=== PATIENT | female | born 1955 | race Caucasian/White ===

== ENCOUNTER 2017-07-16 05:03 | Day surgery (SDC) | payer OTHER ==
[2017-06-28 08:26] VITALS: Ht 161.3 cm; Wt 76.8 kg
--- NOTE | 2017-06-28 08:56 | PAT Medication Instructions ---
Service Date Jun 28, 2017. Current Home Medication List Aspirin (Aspirin Ec), 81 MG PO QAM Cholecalciferol (Vitamin D3), 5,000 UNITS PO QAM Saajmquaate-Zvfanisvtpf-Krw C- (Glucosamine Chondroitin), 1 TAB PO QAM Magnesium Oxide (Mag-Ox), 400 MG PO QAM Vitamin E (Alph-E), 400 UNITS PO QAM [Calcium], 600 MG PO TID [Kelp], 600 MG PO QAM [L Lysine], 500 MG PO QAM [[place] 3], 10 ML PO QAM [Potassium], 75 MG PO QAM [Turmeric], 300 MG PO BID Medication Instructions For Your Scheduled Surgery Aspirin (Aspirin Ec), 81 MG PO QAM (check with surgeon/family doctor for instructions) - Hold the following medications 2 weeks prior to surgery: [Turmeric], 300 MG PO BID [[place] 3], 10 ML PO QAM [Kelp], 600 MG PO QAM Vitamin E (Alph-E), 400 UNITS PO QAM Gkrmwkuwahf-Nkhpgkcqryh-Foh C- (Glucosamine Chondroitin), 1 TAB PO QAM - Hold the following medications the morning of surgery: [Potassium], 75 MG PO QAM [L Lysine], 500 MG PO QAM [Calcium], 600 MG PO TID Magnesium Oxide (Mag-Ox), 400 MG PO QAM Cholecalciferol (Vitamin D3), 5,000 UNITS PO QAM - Take the following medications as scheduled the night before surgery: [Calcium], 600 MG PO TID If you have any questions please call us at [phone] or [phone] or [phone]
--- NOTE | 2017-06-28 09:37 | DIAGNOSTIC IMAGING REPORT ---
CHEST PREADMISSION(PA/LAT) HISTORY: 62 years-old Female preadmission exam COMPARISON: None available TECHNIQUE: Frontal and lateral views of the chest FINDINGS: Cardiac silhouette is within normal limits. There is atherosclerosis of the aorta. Single lead right pectoral pacer is noted with lead overlying the right ventricle. The lead appears to be intact. No pneumothorax, pleural effusion, focal airspace consolidation or overt pulmonary edema. Cholecystectomy clips are seen. Multilevel endplate spurring is seen throughout the spine. There is mild convex right curvature of the midthoracic spine. IMPRESSION: No acute cardiopulmonary process. The above report was generated using voice recognition software. It may contain grammatical, syntax or spelling errors. Electronically signed by: Celestino Mendoza M.D. 06/28/2017 9:36 AM Dictated Date/Time: 06/28/2017 9:34 AM
[2017-06-28 10:35] LABS: BASO % 0.8 %; BASO ABS # 0.04 K/uL (0-0.2); COMPLETE YES; EOS % 4.4 %; HEMATOCRIT 40.5 % (37-47); IG% 0.2 %; LYMPH % 25.8 %; LYMPH ABS # 1.35 K/uL (1.2-3.4); MEAN CELL VOLUME 86.2 fL (80-100); MEAN CORPUSCULAR HEMOGLOBIN 27.7 pg (25-34); MEAN CORPUSCULAR HGB CONC 32.1 g/dl (32-36); MEAN PLATELET VOLUME 10.2 fL (7.4-10.4); MONO % 7.5 %; NEUT % 61.3 %; PLATELET COUNT 254 K/uL (130-400); WHITE BLOOD COUNT 5.23 K/uL (4.8-10.8)
[2017-06-28 10:43] LABS: BUN/CREATININE RATIO 21.4 (10-20); CALCIUM 8.7 mg/dl (8.5-10.1); CREATININE 0.55 mg/dl (0.60-1.20); POTASSIUM 4.2 mmol/L (3.5-5.1)
[2017-06-28 10:47] LABS: PROTHROMBIN TIME (PATIENT) 10.3 SECONDS (9.0-12.0); URINE APPEARANCE CLEAR (CLEAR); URINE COLOR YELLOW; ZZUR CULT IF INDIC CLEAN CATCH NO
[2017-06-28 10:48] LABS: URINE BILIRUBIN NEG (NEG); URINE NITRITE NEG (NEG); URINE PH 7.5 (4.5-7.5); URINE SPECIFIC GRAVITY 1.021 (1.000-1.030); UROBILINOGEN NEG (NEG)
[2017-06-28 10:58] LABS: MANUAL MICROSCOPIC REQUIRED? NO; REVIEW REQ? NO
--- NOTE | 2017-07-14 20:34 | History and Physical ---
History & Physical Date Jul 14, 2017. Chief Complaint Right knee pain History of Present Illness The patient is a 62 year old female with complaints of right knee pain. Patient had a twisting mechanism which caused her to hurt her knee. She states her pain is along the inside of her knee. She has noticed periods of locking or giving way. Past Medical/Surgical History PMHx: HTN PSHx: Defibrillator placement, partial thyroidectomy, cholecystectomy, tonsillectomy, right hand carpal tunnel release Additional History Hepatic Disease: No Endocrine Disorder: Yes Kidney Disease: No Hypertension: Yes Heart Disease: No Bleeding Tendencies: No Infectious Diseases: No Allergies Coded Allergies: Codeine (Verified Allergy, Unknown, CHEST PAIN, 06/28/17) Lactose Intolerance (GI) (Verified Allergy, Unknown, GI UPSET, 06/28/17) Sulfa Antibiotics (Verified Allergy, Unknown, UNKNOWN, 06/28/17) Home Medications Scheduled Aspirin (Aspirin Ec), 81 MG PO QAM Cholecalciferol (Vitamin D3), 5,000 UNITS PO QAM Ubtqzpvlods-Iabdovkcbga-Dnx C- (Glucosamine Chondroitin), 1 TAB PO QAM Magnesium Oxide (Mag-Ox), 400 MG PO QAM Vitamin E (Alph-E), 400 UNITS PO QAM [Calcium], 600 MG PO TID [Kelp], 600 MG PO QAM [L Lysine], 500 MG PO QAM [[place] 3], 10 ML PO QAM [Potassium], 75 MG PO QAM [Turmeric], 300 MG PO BID Physical Examination Skin: warm/dry Eyes: normal inspection Head: normocephalic Neck: no adenopathy Respiratory/Chest: lungs clear, normal breath sounds Cardiovascular: regular rate, rhythm, no murmur Abdomen / GI: normal bowel sounds, non tender Back: normal inspection Extremities: normal inspection, + pertinent finding ((+) Pete test of the right knee, medial joint line tenderness) Diagnosis Right knee medial meniscal tear, lateral meniscal tear Plan of Treatment Patient is scheduled for a right knee PMM, PLM. Patient had a twisting mechanism that caused her pain. MRI demonstrated a medial and lateral meniscal tear of the right knee. She would like to proceed with an arthroscopy. She will be scheduled for a right knee PMM, PLM. Risks and benefits to surgery were discussed that included but not limited to pain, DVT, infection, possible re- tear, failure to relieve all symptoms, blood vessel damage, nerve damage, and anesthesia risks were all discussed with the patient. She wishes to proceed.
[~2017-07-16] VITALS: Ht 161.3 cm; Wt 76.8 kg
[~2017-07-16 05:03] MED LIST: ASPI81TA28 PO; CALC-51 PO; CHOL1000 PO; GLUCTAB7 PO; KELP PO; L LYSINE PO; MAGN400T6 PO; OMEGA 3 PO; POTASSIUM PO; TURMERIC PO; VITA400C28 PO
[2017-07-16 05:53] VITALS: BP 154/84; PULSE 55; TEMP 36.8; O2SAT 98
[2017-07-16] MEDS ORDERED: CEFAZOLIN 1000MG/55 ML D5W IV SCH (06:00)
[2017-07-16] MEDS ORDERED: LACTATED RINGER'S 1000ML 1,000 ML IV SCH (06:00)
[2017-07-16] MEDS ORDERED: LIDOCAINE HCL 2% 2 ML VIAL (20MG/ML) ONE (06:27)
[2017-07-16] MEDS ORDERED: PROPOFOL IV EMULSION 10 MG/ML 20 ML VIAL IV ONE (06:27)
[2017-07-16] MEDS ORDERED: DEXAMETHASONE SOD INJ 4 MG/ML VIAL ONE (06:27)
[2017-07-16] MEDS ORDERED: FENTANYL CITRATE INJ 50 MCG/1 ML 2 ML VIAL ONE (06:27)
[2017-07-16] MEDS ORDERED: ONDANSETRON INJ 2 MG/ML 2 ML VIAL ONE (06:27)
[2017-07-16] MEDS ORDERED: MIDAZOLAM HCL 1 MG/ML 2ML VIAL ONE (06:27)
[2017-07-16] MEDS ORDERED: LIDOCAINE/EPINEPHRINE 1% 20 ML VIAL ONE (07:02)
[2017-07-16] MEDS ORDERED: BUPIVACAINE 0.5 % 5 MG/1 ML MPF 30ML VIAL ONE (07:02)
[2017-07-16] MEDS ORDERED: EpINEphrine HCL INJ 1 MG/ML 5ML SYRINGE ONE (07:03)
--- NOTE | 2017-07-16 07:10 | History & Physical Bridge Note ---
H&P Re-Evaluation Bridge Note: I have examined the patient, reviewed the History & Physical and in the interval since the performance of the History & Physical I have noted the following changes of clinical significance: No changes noted
[2017-07-16] MEDS ORDERED: FENTANYL CITRATE INJ 50 MCG/1 ML 2 ML VIAL IV PRN (07:15)
[2017-07-16] MEDS ORDERED: HYDROmorphone INJ 1 MG/ML SYR IV PRN (07:15)
[2017-07-16] MEDS ORDERED: ATROPINE SULFATE 0.1 MG/ML 5ML SYR IV PRN (07:15)
[2017-07-16] MEDS ORDERED: ONDANSETRON INJ 2 MG/ML 2 ML VIAL IV PRN ×2 (07:15→08:00)
[2017-07-16] MEDS ORDERED: EpHEDrine SULFATE INJ 50 MG/ML AMP IV PRN (07:15)
[2017-07-16] MEDS ORDERED: GLYCOPYRROLATE INJ 0.2 MG/ML VIAL ONE (07:40)
[2017-07-16] MEDS ORDERED: HYDR-5688 PO (07:49)
--- NOTE | 2017-07-16 07:52 | Discharge Instructions ---
Discharge Instructions Date of Service Jul 16, 2017. Admission Reason for Admission: Right Knee, Lateral Meniscus Tear,Medial Meniscus Discharge Discharge Diagnosis / Problem: S/P Partial lateral meniscal tear Discharge Goals Goal(s): Decrease discomfort, Improve function Activity Recommendations Activity Limitations: per Instructions/Follow-up section . Instructions / Follow-Up Instructions / Follow-Up ACTIVITY RECOMMENDATIONS: * You may walk on the leg with or without crutches as comfort permits. * Bending of the knee should start at once. * Do not shower for 48 hours following surgery. SPECIAL CARE INSTRUCTIONS: * You may cleanse the skin adjacent to the small wounds with soap and water at the time of the first dressing change. * The application of an ice bag to the front and sides of the knee will decrease swelling and discomfort for the first 48 hours. * The small incisions may be sore and develop bruising. This bruising does not require any special care. SPECIAL PRECAUTIONS: * If you experience unusual pain unrelieved by prescriptions, temperature elevation (100 degrees F. or above) or progressive swelling or bleeding, you should contact our office at for further evaluation. * You may have been prescribed pain medication. If you experience nausea and/or fine skin rash, discontinue this medication and contact our office at for an alternate medication. DRESSING: * Dressing should be comfortable and absorb any leakage of fluid and/or blood. * The dressing may become moist or bloodstained. * Dressing may be removed 48 hours after surgery and bandaids placed over the small surgical incisions. If can be removed sooner if it becomes very soiled or loose. * Bandaids may be used over next several days as needed and can be discontinued when there is not further drainage from the wounds. FOLLOW UP VISIT: If appointment is not already scheduled: Please call [facility] to make a follow-up appointment for 10 -14 days after your surgery with Dr. Kam or his PA at . Current Hospital Diet Patient's current hospital diet: Regular Diet Discharge Diet Recommended Diet: Regular Diet Pending Studies Studies pending at discharge: no Medical Emergencies . Who to Call and When: Medical Emergencies: If at any time you feel your situation is an emergency, please call [phone] immediately. . Non-Emergent Contact Non-Emergency issues call your: Surgeon Call Non-Emergent contact if: temperature is above 101, your pain is worsening , wound has increased drainage, wound has increased redness . "Provider Documentation" section prepared by Andrew Mayes. . VTE Core Measure Inpt VTE Proph given/why not?: Treatment not indicated [place] Drug Monitoring Program Search Results: patient reviewed within database, no issues identified
--- NOTE | 2017-07-16 07:59 | [facility] Operative Report ---
Operative Report Operative Date Jul 16, 2017. Pre-Operative Diagnosis Right knee possible medial and lateral meniscus tears Post-Operative Diagnosis Right lateral meniscus tear Procedure(s) Performed Right Knee Arthroscopy with Partial Lateral Menisectomy Surgeon Dr. Santi Kam [employer] Business Agent Surgeon(s) None Estimated Blood Loss 1 mL Findings As above Specimens No pathology specimens per surgeon Drains none Anesthesia Gen. Complication(s) None Disposition Recovery Room / PACU Indications 62-year-old female while same pain in the right knee. She is unable to obtain an MRI secondary to pacemaker placement. She exam and history consistent with meniscus tear. Failing conservative measures she wishes to proceed with arthroscopy. Description of Procedure We discussed various treatment measures. The patient wished to proceed with arthroscopic partial lateral meniscectomy. Risks, benefits and alternatives to surgery including, but not limited to, infection, DVT, pain, stiffness, need for revision surgery, failure to relieve all symptoms, damage to blood vessels, damage to nerves, risk of the anesthesia were discussed with the patient and they wished to proceed. The patient was identified. Laterality was confirmed and marked. The patient received a preoperative antibiotic. They were transferred to the operating room and placed in supine position and induced into general endotracheal anesthesia per the anesthesia staff. A well-padded tourniquet was placed on the thigh and the limb was prepped and draped in the usual standard manner with ChloraPrep. The limb was exsanguinated and the tourniquet was inflated. I made a standard anterolateral viewing portal made through a stab incision and bluntly entered the suprapatellar pouch. Then under spinal needle localization I established an anteromedial portal. There was grade 3 and 4 cartilage of the patella. There was grade 0 cartilage of the trochlea. There was grade 1 cartilage of the medial femoral condyle. There was grade 0 cartilage of the medial tibial plateau. The medial meniscus was normal. The ACL and PCL were probed and were normal. There was a complex tear of the posterior horn of the lateral meniscus. This was debrided back to a stable base utilizing combination of the shaver as well as meniscal biter. There was grade 0 cartilage of the lateral femoral condyle. There was grade 0 cartilage of the lateral tibial plateau. All of the instrumentation was removed from the knee. The portal sites were closed with nylon. A sterile dressing was applied and the tourniquet was released. All needle and sponge counts were correct at the end of the procedure. The patient was transferred to the PACU in stable condition without apparent complication. I attest to the content of the Intraoperative Record and any orders documented therein. Any exceptions are noted below.
[2017-07-16] MEDS ORDERED: HYDROCODONE/ACETAMOPHEN 5/325MG TAB PO PRN ×2 (08:00)
[2017-07-16] MEDS ORDERED: ACETAMINOPHEN 325 MG TAB PO PRN (08:00)
[2017-07-16] MEDS ORDERED: METOCLOPRAMIDE HCL INJ 5 MG/ML 2 ML VIAL ONE (08:35)
[2017-07-16] MEDS ORDERED: NURSING VERBAL MED ORDER ONE (08:45)
--- NOTE | 2017-07-16 08:47 | Anesthesiology Progress Note ---
Anesthesia Post Op Note Date & Time Jul 16, 2017 at 08:47 Vital Signs Pain Intensity: 0 Vital Signs Past 12 Hours Date Time Temp Pulse Resp B/P (MAP) Pulse Ox O2 Delivery O2 Flow Rate FiO2 07/16/17 08:40 59 16 144/61 96 Room Air 07/16/17 08:30 65 16 155/71 98 Room Air 07/16/17 08:20 69 16 156/70 99 Mask 10 07/16/17 08:10 63 16 129/69 99 Mask 10 07/16/17 08:03 36.5 69 16 127/62 98 Mask 10 07/16/17 05:53 36.8 55 18 154/84 (107) 98 Room Air Notes Mental Status: alert / awake / arousable, participated in evaluation Pt Amnestic to Procedure: Yes Nausea / Vomiting: adequately controlled Pain: adequately controlled Airway Patency, RR, SpO2: stable & adequate BP & HR: stable & adequate Hydration State: stable & adequate Anesthetic Complications: no major complications apparent
[2017-07-16] MEDS ORDERED: METOCLOPRAMIDE HCL INJ 5 MG/ML 2 ML VIAL IV STA (08:48)
[2017-07-16 09:00] VITALS: BP 135/62; PULSE 55; TEMP 36.6; O2SAT 94
[2017-07-16 09:30] VITALS: BP 151/65; PULSE 57; TEMP 36.8; O2SAT 94
[2017-07-16 10:00] VITALS: BP 162/77; PULSE 65; TEMP 36.7; O2SAT 99
== END 2017-07-16 11:00 | disposition home or self-care (01) ==
LOC: C.ACU 05:03
PROVIDERS: ATTEND Orthopaedic Surgery
DX: S83.241A Other tear of medial meniscus, current injury, right knee, initial encounter (principal); X50.1XXA Overexertion from prolonged static or awkward postures, initial encounter; Z79.82 Long term (current) use of aspirin; E89.0 Postprocedural hypothyroidism; Z90.49 Acquired absence of other specified parts of digestive tract; Z90.89 Acquired absence of other organs; I10 Essential (primary) hypertension; Z95.0 Presence of cardiac pacemaker

== ENCOUNTER 2018-04-04 04:58 | Day surgery (SDC) | payer OTHER, BC ==
--- NOTE | 2018-04-02 14:02 | History and Physical ---
History & Physical Date April 02, 2018. Chief Complaint Left Shoulder pain History of Present Illness The patient is a 63 year old female with complaints of left shoulder pain. Patient has been having pain for about 5 years. Has difficult lifting things out in front of her and lifting arm over head. Cannot sleep on left side. CTA of shoulder showed full thickness RCT and patient would like to proceed with arthroscopic repair. Patient denies headaches, fever, chills, chest pain, sob, n /v/d/c, vision changes, dysphagia, cough, numbness or tingling, dysuria. ROS positive for joint pain and stiffness, does have some urinary incontinence of which she follows with urology. Past Medical/Surgical History Past medical history: HTN, vasovagal syncope, RA, pacemaker-non functioning Past surgical history: subtotal thyroidectomy, knee arthroscopy, CTR, cholecystectomy, tonsillectomy, pacemaker insertion Social history: Patient denies drug, alcohol, and tobacco use. Patient lives in a 1 story home and is retired. Medications: Patient's medications include Aspirin, amlodipine, metoprolol, vitamin c, l-lysine, calcium, vitamin e, kelp, glucosamine and chondroitin, tumeric, and potassium Additional History Hepatic Disease: No Endocrine Disorder: No Kidney Disease: No Hypertension: Yes Heart Disease: No Bleeding Tendencies: No Infectious Diseases: No Allergies Coded Allergies: Codeine (Verified Allergy, Unknown, CHEST PAIN, 07/16/17) Lactose Intolerance (GI) (Verified Allergy, Unknown, GI UPSET, 07/16/17) Sulfa Antibiotics (Verified Allergy, Unknown, UNKNOWN, 07/16/17) Home Medications Scheduled Aspirin (Aspirin Ec), 81 MG PO QAM Cholecalciferol (Vitamin D3), 5,000 UNITS PO QAM Zvxnmtaqssm-Nlvalxkfenv-Uni C- (Glucosamine Chondroitin), 1 TAB PO QAM Magnesium Oxide (Mag-Ox), 400 MG PO QAM Vitamin E (Alph-E), 400 UNITS PO QAM [Calcium], 600 MG PO TID [Kelp], 600 MG PO QAM [L Lysine], 500 MG PO QAM [[place] 3], 10 ML PO QAM [Potassium], 75 MG PO QAM [Turmeric], 300 MG PO BID Physical Examination Skin: warm/dry, no rash Eyes: normal inspection, EOMI, sclerae normal ENT: normal ENT inspection, pharynx normal Head: normocephalic, atraumatic Neck: supple, no adenopathy, trachea midline Respiratory/Chest: lungs clear Cardiovascular: regular rate, rhythm, no murmur Extremities: + pertinent finding (Left shoulder-ROM flexion to 90 degrees, abduction to 90 degrees, IR to T7. Tenderness anterolateral shoulder. Strength 3 +/5 supraspinatus. 5/5 ER. Positive neer and hawkin's impingement signs. 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 Diagnosis Left shoulder rotator cuff tear, impingement syndrome. Plan of Treatment Patient has full thickness rotator cuff tear. Treatment options were discussed with patient including operative and non operative treatments and patient wishes to proceed with left shoulder arthroscopy. Risks, benefits, and alternatives to surgery were discussed with the patient including but not limited to infection, DVT, pain, stiffness, need for revision surgery, failure to relieve symptoms, re-tear, damage to blood vessels, damage to nerves, risks of anesthesia and patient demonstrated understanding. She wishes to proceed with surgery. Patient is scheduled for left shoulder arthroscopic RCR and SAD. Surgery is scheduled for 04/04/18.
--- NOTE | 2018-04-03 09:00 | PAT Medication Instructions ---
Service Date April 03, 2018. Current Home Medication List Acetaminophen (Tylenol), 1,000 MG PO PRN Amlodipine (Norvasc), 2.5 MG PO QAM Ascorbic Acid (Vitamin C), 1,000 MG PO QAM Aspirin (Aspirin Ec), 81 MG PO QAM Mlsebpktdmj-Ocbndxchodp-Fnc C- (Glucosamine Chondroitin), 3 TAB PO DAILY Metoprolol Tartrate (Lopressor) (Lopressor), 12.5 MG PO BID Vitamin E (Alph-E), 400 UNITS PO QAM [Calcium], 1,800 MG PO QPM [Kelp], 600 MG PO QAM [L Lysine], 500 MG PO QAM [Magnesium], 1 TAB PO QPM [[place] 3], 5 ML PO QAM [Potassium], 99 MG PO QAM [Turmeric], 160 MG PO BID Medication Instructions For Your Scheduled Surgery - Held at surgeon's request: Aspirin (Aspirin Ec), 81 MG PO QAM - Hold the following medications the morning of surgery: [Potassium], 99 MG PO QAM Ascorbic Acid (Vitamin C), 1,000 MG PO QAM [[place] 3], 5 ML PO QAM Vitamin E (Alph-E), 400 UNITS PO QAM [Turmeric], 160 MG PO BID [Kelp], 600 MG PO QAM [L Lysine], 500 MG PO QAM Rixqdwpxljz-Ugoyemkfxvs-Dlo C- (Glucosamine Chondroitin), 3 TAB PO DAILY - Take the following medications the morning of surgery with a sip of water OTHERWISE NOTHING TO EAT OR DRINK AFTER MIDNIGHT: Acetaminophen (Tylenol), 1,000 MG PO PRN (may take if needed up to 4 hours prior to surgery) Metoprolol Tartrate (Lopressor) (Lopressor), 12.5 MG PO BID Amlodipine (Norvasc), 2.5 MG PO QAM - Take the following medications as scheduled the night before surgery: Acetaminophen (Tylenol), 1,000 MG PO PRN Metoprolol Tartrate (Lopressor) (Lopressor), 12.5 MG PO BID [Calcium], 1,800 MG PO QPM [Magnesium], 1 TAB PO QPM If you have any questions please call us at [phone] or [phone] or [phone]
[2018-04-03 10:17] LABS: BASO % 0.4 %; BASO ABS # 0.02 K/uL (0-0.2); EOS % 4.1 %; EOS ABS # 0.22 K/uL (0-0.5); HEMATOCRIT 38.9 % (37-47); HEMOGLOBIN 13.1 g/dL (12.0-16.0); IG# 0.01 K/uL (0.00-0.02); LYMPH % 21.9 %; LYMPH ABS # 1.18 K/uL (1.2-3.4); MEAN CELL VOLUME 83.3 fL (80-100); MEAN CORPUSCULAR HEMOGLOBIN 28.1 pg (25-34); MEAN CORPUSCULAR HGB CONC 33.7 g/dl (32-36); MEAN PLATELET VOLUME 9.3 fL (7.4-10.4); MONO % 7.8 %; MONO ABS # 0.42 K/uL (0.11-0.59); NEUT % 65.6 %; NEUT ABS # 3.53 K/uL (1.4-6.5); PLATELET COUNT 252 K/uL (130-400); RED CELL DISTRIBUTION WIDTH CV 14.5 % (11.5-14.5); RED CELL DISTRIBUTION WIDTH SD 44.2 fL (36.4-46.3); WHITE BLOOD COUNT 5.38 K/uL (4.8-10.8)
[2018-04-03 10:28] LABS: PTT PATIENT 25.5 SECONDS (21.0-31.0)
[~2018-04-04] VITALS: Ht 160 cm; Wt 78.5 kg
[~2018-04-04 04:58] MED LIST changes: +ACET-1256 PO; +AMLO2.5T PO; +ASCO10003 PO; -CHOL1000 PO; -MAGN400T6 PO; +MAGNESIUM PO; +METO25TA56 PO
[2018-04-04 05:23] VITALS: BP 157/70; PULSE 53; TEMP 36.6; O2SAT 95; Ht 160 cm; Wt 78.5 kg
[2018-04-04] MEDS ORDERED: CEFAZOLIN SOD 2000MG/15 ML IV PUSH ONE (05:59)
[2018-04-04] MEDS ORDERED: CEFAZOLIN 1000MG IV PUSH 7.5 ML IV SCH (06:00)
[2018-04-04] MEDS ORDERED: LACTATED RINGER'S 1000ML 1,000 ML IV SCH (06:00)
[2018-04-04] MEDS ORDERED: ROPIVACAINE 0.5% 5 MG/ML 30 ML VIAL ONE (06:37)
[2018-04-04] MEDS ORDERED: FENTANYL CITRATE INJ 50 MCG/1 ML 2 ML VIAL ONE (06:40)
[2018-04-04] MEDS ORDERED: MIDAZOLAM HCL 1 MG/ML 2ML VIAL ONE (06:40)
[2018-04-04] MEDS ORDERED: LIDOCAINE/EPINEPHRINE 1% 20 ML VIAL ONE (06:58)
[2018-04-04] MEDS ORDERED: EpINEphrine HCL INJ 1 MG/ML 1ML SYRINGE ONE (06:58)
[2018-04-04] MEDS ORDERED: BUPIVACAINE 0.5 % 5 MG/1 ML MPF 30ML VIAL ONE (06:58)
[2018-04-04] MEDS ORDERED: FENTANYL CITRATE INJ 50 MCG/1 ML 2 ML VIAL IV PRN (08:00)
[2018-04-04] MEDS ORDERED: ATROPINE SULFATE 0.1 MG/ML 5ML SYR IV PRN (08:00)
[2018-04-04] MEDS ORDERED: ONDANSETRON INJ 2 MG/ML 2 ML VIAL IV PRN (08:00)
[2018-04-04] MEDS ORDERED: DEXAMETHASONE SOD INJ 4 MG/ML VIAL ONE (08:33)
[2018-04-04] MEDS ORDERED: GLYCOPYRROLATE INJ 0.2 MG/ML VIAL ONE (08:33)
[2018-04-04] MEDS ORDERED: SUCCINYLCHOLINE CHLORIDE 20 MG/ML 10 ML VIAL IV ONE (08:33)
[2018-04-04] MEDS ORDERED: LIDOCAINE HCL 2% 2 ML VIAL (20MG/ML) ONE (08:33)
[2018-04-04] MEDS ORDERED: RANITIDINE HCL 25 MG/ML INJ ONE (08:33)
[2018-04-04] MEDS ORDERED: ONDANSETRON INJ 2 MG/ML 2 ML VIAL ONE (08:33)
[2018-04-04] MEDS ORDERED: METOCLOPRAMIDE HCL INJ 5 MG/ML 2 ML VIAL ONE (08:33)
[2018-04-04] MEDS ORDERED: ROCURONIUM BROMIDE 10 MG/ML 5 ML VIAL ONE (08:33)
[2018-04-04] MEDS ORDERED: PROPOFOL IV EMULSION 10 MG/ML 20 ML VIAL ONE (08:33)
[2018-04-04] MEDS ORDERED: NEOSTIGMINE METHYLSULFATE 5 MG/5 ML SYR ONE (08:33)
--- NOTE | 2018-04-04 08:57 | [facility] Operative Report ---
Operative Report Operative Date April 04, 2018. Pre-Operative Diagnosis Left shoulder rotator cuff tear, Impingement syndrome. Post-Operative Diagnosis Same as preoperative plus labral tear, synovitis Procedure(s) Performed Left Shoulder Arthroscopy Subacromial Decompression, Rotator Cuff Repair, Debridement, extensive debridement Surgeon Dr. Santi Kam Orientation And Mobility Specialist Surgeon(s) Néstor Valera PA-C Estimated Blood Loss 5ml Findings As above Specimens None per surgeon. Drains None Anesthesia Type General Regional Complication(s) none Disposition Recovery Room / PACU Indications The patient is a 63-year-old female developed a full-thickness rotator cuff tear of the left shoulder. We discussed various treatment measures and she wishes to proceed with arthroscopic repair. Description of Procedure The MRI demonstrated a full-thickness rotator cuff tear. We discussed various treatment measures. The patient wished to proceed with arthroscopic repair. Risks, benefits and alternatives to surgery including, but not limited to, infection DVT, pain, stiffness, need for revision surgery, failure to relieve all symptoms, damage to blood vessels, damage to nerves, risk of anesthesia were discussed with the patient and they wished to proceed. The patient was identified. Laterality was confirmed and marked. The patient received a preoperative antibiotic as well as an interscalene block. They were transferred to the operating room and placed in the supine position and induced into general endotracheal anesthesia per the anesthesia staff. The patient was then safely transferred to the lateral decubitus position, secured by a beanbag. An axillary roll was placed. All pressure points were well-padded. The limb was placed in 10 pounds of lateral traction and then prepped and draped in the usual standard manner with ChloraPrep. The portal sites were anesthetized with 2% lidocaine with epinephrine. I made a standard posterior viewing portal made through a stab incision and then bluntly entered the glenohumeral joint. Then under spinal needle localization, I establish an anterior superolateral portal. The patient had a full-thickness rotator cuff tear through the supraspinatus extending into the infraspinatus. This retracted back about 2 cm They had a degenerative tear in the anterior, superior and posterior aspects of the glenoid labrum. This was debrided back to a stable base utilizing a shaver. Synovitic change in the anterior aspect of the joint was debrided utilizing a shaver. The cartilage of the humeral head and glenoid had some minor degeneration anteriorly. The long head of the biceps was normal. The subscapularis was normal. I then removed the instrumentation from the joint and entered the subacromial space and established a lateral portal. There was a full-thickness rotator cuff tear that measured about 2.5 cm in diameter with fairly thin tissue laterally. I debrided the footprint with a shaver to establish a good bleeding response. Through a stab incision I placed a 5.5 mm HEALICOIL suture anchor. I passed the ultra braid sutures in a horizontal mattress with a fast passive scorpion. I then passed the ultra tape with a shuttling suture. I repeated this process for a posterior medial anchor. I tied the ULTRABRAID sutures with sliding Dov knots reinforced for 3 half hitches on alternating posts. I then took 1 ULTRABRAID suture from each anchor I placed them in a 5.5 mm Multifix S suture anchor. I placed one anterolaterally. I then repeated this process another suture anchor posterolaterally, completing my double row construct. I then released the CA ligament with cautery and performed a subacromial decompression, first removing the anterior inferior spur from laterally and then completing with a cutting block technique. All instrumentation was then removed from the shoulder. Portal sites were closed with nylon. A sterile dressing was applied and a sling placed. All needle and sponge counts were correct at the end of the procedure. The patient was transferred to the PACU in stable condition without apparent complication. The PA-C was necessary for assistance with procedure for assistance in positioning, prepping, draping, retraction and closure. I attest to the content of the Intraoperative Record and any orders documented therein. Any exceptions are noted below.
--- NOTE | 2018-04-04 09:19 | Discharge Instructions ---
Discharge Instructions Date of Service April 04, 2018. Visit Reason for Visit: Left Shoulder Impingement Syndrome, Rtc Tear Discharge Discharge Diagnosis / Problem: Left shoulder RTC tear, impignement syndrome Discharge Goals Goal(s): Decrease discomfort, Improve function Activity Recommendations Activity Limitations: per Instructions/Follow-up section Anesthesia . Post Anesthesia Instructions: If you have had General Anesthesia or IV Sedation: * Do not drive today. * Resume driving when surgeon permits. * Do not make important decisions or sign legal documents today. * Call surgeon for: 1. Temperature elevations greater than 101 degrees F. 2. Uncontrollable pain. 3. Excessive bleeding. 4. Persistent nausea and vomiting. 5. Medication intolerance (nausea, vomiting or rash). * For nausea and vomiting use only clear liquids such as: tea, soda, bouillon until nausea subsides, then gradually increase diet as tolerated. * If you have any concerns or questions, call your surgeon's office. If physician is unavailable and it is an emergency, call 911 or go to the nearest emergency room. . Instructions / Follow-Up Instructions / Follow-Up U DISCHARGE INSTRUCTIONS: ROTATOR CUFF REPAIR SELF CARE INSTRUCTIONS A. You are permitted to loosen your sling/immobilizer to move your elbow, wrist , and hand to prevent stiffness. You should use your well arm (good arm) to assist the operated extremity when trying to raise the arm away from the body, hygiene purposes. Do NOT actively try to use/engage your shoulder muscles in operative arm at this time. You should NOT do overhead activity, lifting, or attempt to reach behind your back. B. You may/may not be instructed to start Physical Therapy upon discharge depending upon the size and difficulty of the repair. You will be provided a prescription for therapy with specific restrictions, if needed, at time of discharge. C. At 48 hours post-operatively, you may change your dressing. (Leave white steri-strips intact if present). Use band-aids and change daily. You are allowed to shower at this time and get the incision area wet, but DO NOT soak or submerge incision area in water. (No baths, swimming pools, hot tubs) D. Do NOT apply soap or any ointment/lotions directly over incision. E. You may use ice as needed to operative shoulder SPECIAL CARE INSTRUCTIONS: VERY IMPORTANT TO READ AND REVIEW A. There are a few signs you need to watch for after you are home. Call [facility] at [phone] if you experience any of the following: a. Increased severe shoulder pain. Some pain is expected especially when you exercise b. Increased swelling in your shoulder or arm; pain or swelling in either upper extremity. (Note: swelling and stiffness is normal and expected for several weeks post op, depending on type of shoulder surgery you had). c. Any fluid or drainage from the incision; redness of the incision. d. Shortness of breath or chest pain. B. Please call [facility] at [phone] if you have any questions or concerns about your operation or recovery. C. Call your physician if: a. Temperature is greater than 101 degrees (F). b. Pain is not relieved by prescribed pain medications. c. Increase drainage or redness from incision. d. Unanswered questions or concerns. D. Pain Medication: a. You will be prescribed pain medication upon discharge that should last till your first post-operative appointment. b. If you experience nausea and/or skin rash, discontinue this medication and contact our office for an alternative medication. c. Caution- narcotic pain medication can cause constipation. FOLLOW UP VISIT: Please call [facility] at [phone] to schedule a follow up appointment with Dr. Kam 10-14 days from your surgery date. Diet Recommendations Recommended Home Diet: resume previous diet Procedures Procedures Performed: Left Shoulder Arthroscopy Subacromial Decompression, Rotator Cuff Repair, Debridement, extensive debridement Pending Studies Studies pending at discharge: no Medical Emergencies . Who to Call and When: Medical Emergencies: If at any time you feel your situation is an emergency, please call 911 immediately. . Non-Emergent Contact Non-Emergency issues call your: Surgeon Call Non-Emergent contact if: temperature is above 101, your pain is not controlled, your pain is worsening, wound has increased drainage, wound has increased redness, wound has increased pain . . "Provider Documentation" section prepared by Néstor Valera. . [place] Drug Monitoring Program Search Results: patient reviewed within database, no issues identified
[2018-04-04] MEDS ORDERED: OXYC-57 PO (09:24)
--- NOTE | 2018-04-04 09:53 | Anesthesiology Progress Note ---
Anesthesia Post Op Note Date & Time April 04, 2018 at 09:53 Vital Signs Pain Intensity: 0 Vital Signs Past 12 Hours Date Time Temp Pulse Resp B/P (MAP) Pulse Ox O2 Delivery O2 Flow Rate FiO2 04/04/18 09:46 36.2 42 14 110/56 93 Room Air 04/04/18 09:41 36.2 42 14 108/73 95 Room Air 04/04/18 09:31 44 14 125/47 100 Oxymask 10 04/04/18 09:21 45 14 137/57 100 Oxymask 10 04/04/18 09:12 36.0 48 14 127/62 100 Oxymask 10 04/04/18 05:23 36.6 53 18 157/70 (99) 95 Room Air Notes Mental Status: alert / awake / arousable, participated in evaluation Pt Amnestic to Procedure: Yes Nausea / Vomiting: adequately controlled Pain: adequately controlled Airway Patency, RR, SpO2: stable & adequate BP & HR: stable & adequate Hydration State: stable & adequate Anesthetic Complications: no major complications apparent
[2018-04-04 09:55] VITALS: BP 112/52; PULSE 56; TEMP 35.9; O2SAT 97
[2018-04-04 10:25] VITALS: BP 112/55; PULSE 42; TEMP 35.9; O2SAT 95
[2018-04-04 10:55] VITALS: BP 153/72; PULSE 65; O2SAT 97
== END 2018-04-04 11:10 | disposition home or self-care (01) ==
LOC: C.ACU 04:58
PROVIDERS: ATTEND Orthopaedic Surgery
DX: M75.122 Complete rotator cuff tear or rupture of left shoulder, not specified as traumatic (principal); M75.42 Impingement syndrome of left shoulder; I10 Essential (primary) hypertension; M19.90 Unspecified osteoarthritis, unspecified site; Z95.0 Presence of cardiac pacemaker; Z79.82 Long term (current) use of aspirin; Z79.899 Other long term (current) drug therapy; Z88.5 Allergy status to narcotic agent; Z88.2 Allergy status to sulfonamides; Z91.011 Allergy to milk products

== ENCOUNTER 2023-11-01 06:43 | Observation (INO) ==
--- NOTE | 2023-11-01 07:52 | History & Physical Bridge Note ---
Date of Service November 01, 2023 History & Physical Bridge Note I have examined the patient, reviewed the History & Physical and in the interval since the performance of the History & Physical I have noted the following changes of clinical significance: no changes noted. I reviewed the indications, procedure, risks and alternatives with the patient, and answered all questions. Patient understands and agrees to the procedure. Consent obtained. I also reviewed the risks and use of sedation, patient understands and consent obtained. Our plan is to remove the right-sided pacemaker which looks a little indurated around the site, if that looks clean on explant we will proceed with left-sided dual-chamber pacemaker implantation. If not we will hold off on reimplantation. This is safe since the device has not been functional for decades.
--- NOTE | 2023-11-01 07:53 | Pre Anesthesia Assessment ---
Date of Service November 01, 2023 Pre Sedation Assessment Vital Signs Temp Pulse Resp BP Pulse Ox O2 Del Method 11/01/23 07:01 36.8 C 59 L 18 204/107 H 100 Room Air Cardiovascular RRR, no murmur, no edema Respiratory normal respiratory effort, lungs clear to auscultation Pre-Sedation Airway Assessment Smoking Status: Never smoker Hx Sleep Apnea: No Short, Thick Neck: No Thyromental Distance: > or= 3.5 Finger Breadths Oral Cavity: + Dentures Mallampati Class: III ASA: ASA3 NPO Status Date of Last Intake of Fluids: 10/31/23 Date of Last Intake of Solid Food: 10/31/23 Procedure Planning Contraindications for Sedation: none Current Medications Reviewed: Yes Notes The planned sedation has been discussed with the patient. Informed Consent was obtained. I have identified the patient, determined the appropriateness of sedation and have assessed the patient immediately prior to the procedure. All medicine(s) and interventions are by my order.
[2023-11-01] MEDS: LIDOCAINE 1% LOCAL 20 ML VIAL ONE ×3 (08:28→09:28)
[2023-11-01] MEDS: VANCOMYCIN HCL 1000MG/20ML VIAL ONE ×2 (09:27→10:10)
[2023-11-01] MEDS: MIDAZOLAM HCL 5 MG/ML 1 ML VIAL ONE ×2 (09:28→10:11)
[2023-11-01] MEDS: WATER, STERILE FOR INJ 10 ML VIAL ONE ×3 (09:28→10:10)
[2023-11-01] MEDS: fentaNYL citrate PF 100 MCG/2 ML VIAL ONE ×2 (09:28→10:11)
[2023-11-01] MEDS: ceFAZolin 330 MG/ML 1 GM VIAL ONE (09:28)
[2023-11-01] MEDS ORDERED: ACETAMINOPHEN W/CODEINE #3 1 TAB PO PRN (10:52)
--- NOTE | 2023-11-01 10:52 | Electrophysiology Report ---
Date of Service November 01, 2023 Electrophysiology Procedure Electrophysiology Procedure Report Preoperative diagnosis: Pacemaker end-of-life Sinus node dysfunction Postoperative diagnosis: Same Procedure: Right-sided single-chamber pacemaker removal Left subclavian venogram Dual-chamber pacemaker implantation Surgeon: Santy Quintero MD Estimated blood loss: 50 cc Specimens: None Anesthesia: Local with sedation Procedure details: After obtaining informed consent for the procedure, the patient was brought to the laboratory and prepped and draped in the standard sterile manner for a right-sided pacemaker removal. The site was somewhat indurated for unknown reasons, the device had been in since 1990 and had long since become depleted. It had been left in place. The right prepectoral region was anesthetized with 1% lidocaine local anesthetic through the old implant scar. A 5 cm incision was made through the old scar and carried down to the pacemaker generator. The generator was found to be very heavily calcified with a very thickened calcified capsule which made it difficult to extract the pacemaker. Ultimately the capsule was cracked and partially removed and the device could be explanted. It was disconnected from the lead, a lead cap was placed on the lead. The inflammation appeared likely due to the calcified capsule, there appeared to be no evidence of infection, therefore is much of the capsule as could easily be removed was done although some remains. The lead was coiled in the pocket, the pocket was flushed with vancomycin solution and the incision was closed with a running double subcutaneous closure of 3-0 Vicryl followed by a running subcuticular skin closure of 4-0 Vicryl. Bacitracin ointment was placed on incision and a dressing applied. The sterile drape bruits were removed. The patient was then reprepped and draped in the standard sterile manner for a left-sided pacemaker implantation. Dye was injected the left arm IV site to opacify the left subclavian vein. The subclavian vein was identified and found to be free of obstruction. The left prepectoral region was anesthetized with 1% lidocaine local anesthetic and left axillary venipuncture was performed by percutaneous technique and a guidewire placed through the left subclavian vein into the superior vena cava. The area was further infiltrated with 1% lidocaine local anesthetic and a 6 cm incision was made parallel to the left clavicle and 2 cm below it and carried down to the anterior pectoralis fascia. A pacemaker pocket was formed by blunt dissection anterior to the pectoralis fascia and a vancomycin soaked sponge was placed in the pocket. An 8 [place] [employer] Medtronic lead introducer was placed over the guidewire into the left subclavian vein, the dilator and guidewire were removed and a bipolar active fixation steroid tipped ventricular lead was advanced through the introducer into the superior vena cava. A guidewire was placed through the introducer and the introducer was stripped from the lead and guidewire. Another 8 [place] [employer] Medtronic lead introducer was placed over the guidewire into the left subclavian vein, the dilator and guidewire were removed and a bipolar active fixation steroid tipped atrial lead was advanced through the introducer into the superior vena cava. A guidewire was placed back through the introducer and the introducer was stripped from the lead and guidewire. Using a curved stylette the ventricular lead was advanced through the right ventricular outflow tract into the pulmonary artery and then using a straight stylette was positioned on the intraventricular septum. The screw was extended fixing the lead in position. Pacing and sensing thresholds were evaluated in bipolar configuration and are recorded on the implant data sheet. Using a curved stylette the atrial lead was positioned in the region of the atrial appendage and the screw extended fixing the lead in position. Pacing and sensing thresholds were evaluated in bipolar configuration and are recorded on the implant data sheet. Once the leads were in position they were attached to the anterior pectoralis fascia using 2 sutures of 2-0 silk around each lead collar. The vancomycin soaked sponge was removed from the pocket, hemostasis was obtained, the pacemaker was attached to the leads and placed in the pocket with the leads coiled beneath it. The incision was closed with a running double subcutaneous closure of 3-0 Vicryl absorbable suture, followed by running subcuticular skin closure of 4-0 Vicryl absorbable suture. Bacitracin ointment was placed on the incision and a dressing applied. [facility] Electrophysiology codes Indication for Procedure (1) Sinus bradycardia: Pacing Procedure 1: Pacin Removal Pacer genererator Procedure 2: Pacin Insert/Replace Pacer A & V Miscellaneous Procedures Procedure 1: EP Miscellaneous: 09766 Contrast injection for venography Procedure 2: EP Miscellaneous: 78893-80 Vengraphy, extremity PG Moderate Sedation Codes Moderate Sedation Codes Procedure 1: Sedation/Anesthesia: 70995 Mod Sedation by the same physician;Init15 Min Child Age 5 & Up Procedure 2: Sedation/Anesthesia: 82117 Mod Sedation by the same physician; Ea [id number] Minutes
[2023-11-01] MEDS: ACETAMINOPHEN 325 MG TAB PO PRN (12:43)
[2023-11-01] MEDS ORDERED: KETOROLAC TROMETHAMINE 10 MG TABLET PO PRN (13:56)
[2023-11-01] MEDS: amLODIPine BESYLATE 5 MG TAB PO SCH (15:25)
[2023-11-01] MEDS: ACETAMINOPHEN 325 MG TAB ONE (15:25)
[2023-11-01] MEDS ORDERED: TRIAMCINOLONE ACET 0.1% OINT 15 GM TUBE TOP PRN (15:48)
[2023-11-01] MEDS ORDERED: TRIAMCINOLONE ACET 0.5% CR 15 GM TUBE TOP PRN (15:49)
[2023-11-01] MEDS: METOPROLOL TARTRATE 50 MG TAB PO STA (16:27)
--- NOTE | 2023-11-01 16:41 | Post Anesthesia Assessment ---
Date of Service November 01, 2023 Post Sedation Assessment Vital Signs Temp Pulse Pulse Resp BP Pulse Ox O2 Del Method 11/01/23 15:38 73 11/01/23 14:58 36.6 C 71 20 169/81 H 11/01/23 14:05 66 18 163/61 H 99 Room Air 11/01/23 13:35 67 18 144/71 H 99 Room Air 11/01/23 13:05 63 18 164/73 H 99 Room Air 11/01/23 12:35 64 18 140/66 96 Room Air 11/01/23 12:05 69 18 143/111 H 96 Room Air 11/01/23 11:50 74 18 133/76 95 Room Air 11/01/23 11:35 63 18 164/73 H 96 Room Air 11/01/23 11:20 61 18 142/111 H 97 Room Air 11/01/23 11:05 62 20 184/83 H 96 Room Air 11/01/23 10:50 62 20 157/75 H 97 Room Air 11/01/23 10:35 62 20 132/68 97 Room Air 11/01/23 07:01 36.8 C 59 L 18 204/107 H 100 Room Air Recovery Score Activity: Moves 4 extremities Respiration: Deep Breath/Cough Circulation: +/-20% PreAnes Value Consciousness: Fully Awake Oxygen Saturation: > 92% On Room Air Post Anesthesia Score: 10 Discharge Sedation Level of Care: Fast Track Phase II Post Sedation Plan On clinical assessment, the patient appears to have tolerated the sedation without complications. Patient is recovering as anticipated. Patient will continue to be monitored by nursing and may be discharged when sedation discharge criteria are met per below protocol. Upon Completions of procedure up to 15 minutes continue every 5 minute vital signs and the P.A.R. score; then discharge to a Phase I or Fast Track to Phase II per the following guidelines: * Discharge Patient to appropriate Phase II area if PAR is 8 or greater or return to pre- procedure baseline. The post - procedure orders will be as directed. * If PAR score is less than 8 or not return to pre-procedure baseline then patient will follow Phase I monitoring till PAR is reached for Phase II. The Phase I may be done in procedure room or may call to secure a Phase I area. * If naloxone or flumazenil are used for reversal, hold in Phase I for continued monitoring from when last reversal dose was given for a minimum of 60 minutes or longer pending the nurse and/or physician discretion of patient condition before discharge to Phase II. Please call the Sedation Physician to re-evaluate and complete post-note for discharge to Phase II area. Do NOT discharge from procedure sedation or Phase 1 until post- sedation evaluation note is complete by procedure /sedation MD Sedation Discharge Instructions to be given to the patient at discharge to home.
[2023-11-01] MEDS: prednisoLONE acetate 1% OP SUSP 5 ML BTL OP SCH (20:06)
[2023-11-01] MEDS: valACYclovir HCL 500 MG TABLET PO SCH (20:07)
--- NOTE | 2023-11-02 07:44 | Electrocardiogram Report ---
Test Reason : Blood Pressure : / mmHG Vent. Rate : 063 BPM Atrial Rate : 063 BPM P-R Int : 198 ms QRS Dur : 076 ms QT Int : 414 ms P-R-T Axes : 072 021 078 degrees QTc Int : 423 ms Atrial-paced rhythm Cannot rule out Anterior infarct , age undetermined Abnormal ECG When compared with ECG of 16-OCT-2023 10:20, (unconfirmed) Electronic atrial pacemaker has replaced Sinus rhythm Confirmed by Santy Quintero ([id number]) on 11/02/2023 7:44:09 AM Referred By: Santy Quintero Confirmed By:Santy Quintero
--- NOTE | 2023-11-02 07:52 | XRay Report ---
TWO VIEW CHEST CLINICAL HISTORY: Pacemaker implantation.. FINDINGS: PA and lateral chest radiographs are compared to study dated 06/28/2017. A 2-lead cardiac pa cemaker has been placed and partially obscures left lung base. Leads project over the right atrial ap pendage and the right ventricle. There are residual right-sided leads. The cardiomediastinal silhouet te is top normal for projection noting atherosclerotic calcification of the thoracic aorta. The pulmo nary vasculature is noncongested. Chronic interstitial thickening similar to previous. No airspace co nsolidation or pleural effusion is identified. Mild dependent atelectasis is noted at the lung bases. There is no pneumothorax. The skeletal structures are osteopenic. The bony thorax appears intact. D egenerative change is noted in the spine. Cholecystectomy clips are seen in the right upper quadrant. IMPRESSION: 1. A 2-lead cardiac pacemaker has been implanted as above. No pneumothorax is identified post procedu re. 2. There is no radiographic evidence of congestive failure. 3. No airspace consolidation or pleural effusion is identified. ACT 112: Negative or not required by law. Electronically signed by: Fuad Deleon M.D. 11/02/2023 7:50 AM
--- NOTE | 2023-11-02 08:29 | Cardiology Progress Note ---
Date of Service November 02, 2023 Assessment & Plan (1) Status post placement of cardiac pacemaker: Plan Postop day #1: Leads are in good position, there is no pneumothorax and the pacer is functioning well. The incision looks good and the dressings were changed. She is stable for discharge. Admission and Anticipated Discharge Date Admission Date: November 01, 2023 Subjective She is feeling well with only minor incisional discomfort. No chest pain, shortness of breath or palpitations. Physical Exam Physical Exam: Both right and left incisions are clean and dry, there is some ecchymosis on both but that is expected. Lungs are clear Cardiac rhythm is regular with no rub Results & Data Vital Signs (Past 12 Hours) Vital Signs Temp Pulse Pulse Resp BP Pulse Ox O2 Del Method 11/02/23 07:59 36.9 C 78 18 123/77 95 Room Air 11/02/23 03:16 36.9 C 81 20 134/78 98 Room Air 11/02/23 02:00 61 11/01/23 23:09 36.7 C 68 20 107/70 94 Room Air Laboratory Results Intake and Output 11/01/23 11/02/23 11/02/23 22:59 06:59 14:59 Intake Total 200 / 200 Output Total / Balance 199 / 199 Intake: Oral 200 / 200 Output: # Bowel Movements / Other: # Unmeasured Voids 1 Weight 77.6 kg Diagnostic Findings 1. Postop ECG: Atrial pacing with intact AV conduction 2. Telemetry: Predominantly atrial pacing with intact AV conduction, ap propriate pacemaker function 3. Chest x-ray: Good lead placement, no pneumothorax 4. Pacemaker evaluation: None remotely, excellent pacing and sensing characteristics PG Care Time/CCT Total # of Minutes Spent Total Time Spent with Patient: Total time spent is greater than 50% in coordination of care (as documented) at patient's floor/unit and/or counseling patient: Coding Level of Care Code 63541 Post Operative Follow-Up Diagnoses Status post placement of cardiac pacemaker Z95.0 CPT Codes Dual Lead Pacemaker System - 17345 ([id number])
[2023-11-02] MEDS: OMEGA-3 (PURIFIED FISH OIL) 1 GM CAP PO SCH (08:46)
[2023-11-02] MEDS: CALCIUM 600MG + VIT D 400 IU TAB PO SCH (08:46)
[2023-11-02] MEDS: MAGNESIUM OXIDE 400 MG TAB PO SCH (08:46)
[2023-11-02] MEDS: ASPIRIN 81 MG ECTAB PO SCH (08:46)
[2023-11-02] MEDS ORDERED: IODINE PO SCH (09:00)
[2023-11-02] MEDS ORDERED: [UNRECOGNIZED DRUG - OTHER] PO SCH (09:00)
--- NOTE | 2023-11-12 10:05 | Discharge Summary ---
Date of Service November 02, 2023 Admission HPI Per Admitting Provider This is a 68-year-old woman who has a long history of syncope. I do not have records but she is a quite good historian. Apparently around 1989 she was identified as having bradycardia felt to be a cause of her syncope and had a pacemaker implanted in [place]. I do not have records of this implant but she recalls it being a Medtronic, it is on the right and historic chest x-ray reports (I do not have one that I can look at) note that it is a single-chamber right-sided device, I assume a ventricular lead. It evidently did not help her symptoms of presyncope and syncope and she was evaluated by Dr. Bernabe at [facility] many years ago while the device was still functional (I do not have those records either) we determined that she had vasovagal syncope (possibly on the basis of a tilt test although I am not sure) and the pacer was programmed to a low rate. Since then the pacemaker has become completely battery depleted and has not been functional or evaluated for many years. She recalls it being a Medtronic device, however I checked with [employer] and I do not have record of her having a device. At this point it is probably irrelevant. She has continued to have episodes of syncope. She has several per year, some sound fairly prolonged and repetitive. She probably has episodes of syncope several times per year and although she has fallen she has not had serious injury although she is concerned that she could. Most recently she had her COVID booster on August 23, 2023 and later that day had an episode of syncope (while sitting down). She had a prodrome of feeling poorly with presyncopal symptoms until she lost consciousness. She also has intermittent momentary weakness which is periodic and to my knowledge has not defined. To my knowledge she has not had her syncope further evaluated since her evaluation at [place]. An echocardiogram done September 10, 2023 shows normal left ventricular size and function with mild concentric left ventricular hypertrophy and ejection fraction of 60 to 65%. She has only minor aortic and mitral regurgitation and mild pulmonic regurgitation with mild to moderate tricuspid regurgitation but normal right heart pressures. She notes that her device is irritating at times with burning or itching at the site. She has noted no drainage. She does not have exertional chest discomfort and has noted no change in her exercise ability recently. She does not have orthopnea or PND. Admission Exam (Per Admitting) Constitutional Constitutional: Alert, cooperative and in no distress. HEENT: Unremarkable Neck: No jugular venous distention, carotid pulses are normal and equal bilaterally without bruits. Pulmonary: Clear to auscultation bilaterally. Cardiac: Regular slow rhythm with no murmur, gallop or rub. Abdomen: Soft, nontender with normal bowel sounds. Extremities: No edema. Distal pulses intact. Neurologic: No focal findings. Gait is steady. Skin: The device site on the right is indurated but without erythema, swelling and with minimal tenderness. No rash, ecchymoses or petechiae. Discharge Data Procedures Performed Operation Date: 11/01/23 08:00 Actual Procedures p Pacer Removal - Santy Quintero MD s Pacer with A/V Leads (Dual) - Santy Quintero MD s Angio Extremity Unilateral - Santy Quintero MD Hospital Course (1) Status post placement of cardiac pacemaker: Plan Surgery to explant the right-sided pacemaker and The lead as well as implantation of a left-sided pacemaker went well without evident complications. Postop day #1: Leads are in good position, there is no pneumothorax and the pacer is functioning well. The incision looks good and the dressings were changed. She is stable for discharge. Coding Level of Care Code None Diagnoses Status post placement of cardiac pacemaker Z95.0
== END 2023-11-02 11:55 | disposition home or self-care (01) ==
LOC: 2S 06:43 → EP 06:43
PROC: CLB.AEU (2023-11-01 08:00)

== ENCOUNTER 2025-01-20 10:56 | Observation (INO) ==
[2025-01-20 11:31] LABS: Basophils # (auto) 0.05 K/uL (0.00-0.20); Basophils % (auto) 0.7 %; Eosinophils # (auto) 0.38 K/uL (0.00-0.50); Eosinophils % (auto) 5.3 %; Hematocrit (blood only) 41.7 % (37.0-47.0); Hemoglobin 13.5 g/dl (12.0-16.0); Immature Granulocytes # (auto) 0.02 K/uL (0.01-0.20); Immature Granulocytes % (auto) 0.3 %; Lymphocytes # (auto) 1.35 K/uL (1.20-3.40); Lymphocytes % (auto) 18.8 %; Mean Corpuscular Hemoglobin 29.9 pg (25.0-34.0); Mean Corpuscular Hgb Conc 32.4 g/dL (32.0-36.0); Mean Corpuscular Volume 92.3 fL (80.0-100.0); Mean Platelet Volume 9.5 fL (9.4-12.4); Monocytes # (auto) 0.53 K/uL (0.11-0.59); Monocytes % (auto) 7.4 %; Neutrophils # (auto) 4.84 K/uL (1.40-6.50); Neutrophils % (auto) 67.5 %; Platelet Count 208 K/uL (130-400); RDW Coefficient of Variation 13.6 % (11.5-14.5); RDW Standard Deviation 46.3 fL (36.4-46.3); Red Blood Count 4.52 M/uL (4.20-5.40); White Blood Count 7.17 K/ul (4.8-10.8)
[2025-01-20 11:42] LABS: Albumin Globulin Ratio 1.4 (0.9-2); Albumin Level 4.6 gm/dl (3.4-5.0); BUN Creatinine Ratio 21.6 (10-20); Bilirubin,Total 0.8 mg/dl (0.2-1.0); Calcium 9.5 mg/dl (8.6-10.3); Creatinine Clr Calc Pharmacy 98.4 ml/min; Globulin 3.4 gm/dl (2.5-4.0); Potassium 3.9 mmol/L (3.5-5.1)
--- NOTE | 2025-01-20 11:47 | XRay Report ---
XR chest 1V portable CLINICAL HISTORY: Chest pain, nonspecific COMPARISON STUDY: 01/18/2025 FINDINGS: Stable pacemaker. Stable mild cardiomegaly without pulmonary vascular congestion. No effusi on, consolidation, or pneumothorax. IMPRESSION: No acute findings. ACT 112: Negative or not required by law. Electronically signed by: Deep Rodríguez M.D. 01/20/2025 11:46 AM
[2025-01-20 11:49] LABS: Troponin I High Sensitivity 14.4 pg/ml (0-14)
[2025-01-20 11:55] LABS: Partial Thromboplastin Time 26 Seconds (21-31); Prothrombin Time 10.5 Seconds (9.0-12.0)
--- NOTE | 2025-01-20 12:24 | Emergency Department Note ---
Impression & Plan Chest pain ED Provider Note NAME: ANDERS ANDERSON AGE: 70 SEX: F : 1955 ARRIVES VIA: Walk-In INFORMANT: Patient, ED PROVIDER(S): Palak Marley MD CHIEF COMPLAINT: Chest pain HPI: This is a 70-year-old female sent for chest pain. Patient notes that she woke up middle of the night, around 2 AM, with pressure in her chest, arms, face. This was left-sided pressure/arm. Otherwise she no shortness of breath and sepsis. She did not wake up her Cher resolved after a couple of hours. She only had 2 hours of sleep as result of this pain. She then came to the ER after symptoms had resolved. She reports no nausea or vomiting currently. No current symptoms at all. She does report recent pacemaker replacement 2 days ago. ROS: See above HPI for pertinent positives & negatives. A total of 10 systems reviewed and were otherwise negative. PAST MEDICAL HISTORY: See Below PAST SURGICAL HISTORY: See Below FAMILY HISTORY: See Below SOCIAL HISTORY: See Below HOME MEDICATIONS: See Below ALLERGIES: See Below VITALS: See Below PHYSICAL EXAMINATION: General: resting comfortably in no acute distress Head: Normocephalic and atraumatic Eyes: Normal inspection, extraocular muscles intact Ear, nose, throat: Normal external exam Neck: Normal range of motion Respiratory: lungs clear to auscultation bilaterally Cardiovascular: Regular rate/rhythm, no murmur GI: soft, nontender, no guarding or rebound Extremities: nontender, moves all extremities Neuro: The patient awake and alert, appropriately conversive, no focal deficits, symmetric faces Skin: Warm, dry, and intact MEDICAL DECISION MAKING: This is a 70-year-old female presenting for chest pain. Patient notes chest pressure throughout course of night was left-sided arm pain and facial pain. She also has shortness of breath with this. Currently resolved symptoms. -Consider ACS, PE, pacemaker malfunction, -ECG independently interpreted by me with normal sinus rhythm, rate of 76, normal axis, normal WA, normal QRS, normal QTc, no ST segment elevations consistent with STEMI criteria -Bloodwork is reviewed showing no significant leukocytosis, anemia, electrolyte or creatinine abnormality -Chest Xray independently interpreted by me showing no pneumothorax, focal opacity, or pleural effusions. -Discussed with Dr. Quintero as history of procedure 2 days ago. States likely not a complication based on story. -Due to patient's story, will admit for further ACS rule out/unstable angina Differential diagnosis: ACS, angina, PE, dissection, pneumonia Independent History obtained from: Diagnostics interpreted by me: ECG: See above Cardiac Monitoring: An order was placed for continuous cardiac monitoring. The monitor shows a rate of 67 with sinus rhythm. 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 Epistaxis Left serous otitis media Hearing loss of left ear due to cerumen impaction Inflamed seborrheic keratosis of left cheek Lumbar spinal stenosis Lumbar radiculopathy Dysuria Lumbar degenerative disc disease Diarrhea Bilateral hip bursitis Chronic pharyngitis Chronic pharyngeal candidiasis Sinus bradycardia Tricuspid regurgitation Bilateral carotid artery stenosis Carotid stenosis Junctional rhythm Asymptomatic microscopic hematuria Syncope Colon cancer screening Dyslipidemia Hypomagnesemia Dyslipidemia Venous insufficiency Intertrigo Psoriasis Chronic venous insufficiency Hypertension, isolated systolic (Acute) Asymptomatic age-related postmenopausal state Mixed incontinence Medicare annual wellness visit, subsequent Encounter for perioperative consultation Urge incontinence (Acute) Presence of cardiac pacemaker (Acute) Stress incontinence (female) (male) (Acute) Medical History Migraine Pain due to varicose veins of both lower extremities Bleeding from varicose vein Cataract Bladder and urethra injury without mention of open wound into cavity Retinal tear of left eye Rotator cuff disorder Surgical History Status post placement of cardiac pacemaker History of suburethral sling procedure H/O eye surgery History of dilation and curettage History of hysteroscopy Pacemaker Status post lateral meniscus repair Status post rotator cuff repair H/O thyroidectomy History of cholecystectomy History of carpal tunnel release History of tonsillectomy Family History Mother Alzheimer disease 2015 Hypertension Stroke Sister Asthma Colonic polyp Diverticulitis Kidney stone Dyslipidemia Osteoporosis Father Diverticulitis Kidney stone Dementia Aunt SIDS (sudden syndrome) Denies family history of Rheumatoid arthritis Sudden Ovarian cancer Prostate cancer Diabetes Deep vein thrombosis Coronary heart disease Cerebral aneurysm Bipolar disorder Clotting disorder Crohn's disease Depression Heart disease Kidney disease Myocardial infarction Osteoarthritis Breast cancer Schizophrenia Congenital kidney disease Gestational diabetes Lung cancer COPD (chronic obstructive pulmonary disease) Colorectal cancer Pulmonary embolism Lung disease Cancer Ulcerative colitis Cystic kidney disease Social History Smoking Status: Never smoker Second Hand Exposure: No; Do You Dip or Chew Tobacco: No; Hx Alcohol Use: No Hx Substance Use: No Preferred Language: Icelandic Communication Ability: Effective Visual Impairment: No Limitations Hearing Ability: Normal Scientist/Engineer Required: No Beliefs That Will Affect Care: None marital status: Current Living Situation: Spouse current occupational status: unemployed Feels Safe at Home: Yes Childhood Exposure to Second-Hand Smoke: No caffeine: Yes during the past year weight has: remained stable Dental Care, Regularly: No Physical Activity Frequency: 5-6 Times per Week Physical Activity Frequency Comment: BICYCLING, WALK Seatbelt Use: always Sunscreen Use: No Assistive Devices: Glasses Allergies Allergies Allergy/AdvReac Type Severity Reaction Status Date / Time codeine Allergy Unknown CHEST PAIN Verified 01/20/25 14:21 Sulfa (Sulfonamide Allergy Unknown UNKNOWN Verified 01/20/25 14:21 Antibiotics) lactose AdvReac Unknown GI UPSET Verified 01/20/25 14:21 Home Meds Home Medications Medication Instructions Recorded Confirmed omega 8-mnl-lyo-fish oil 60 mg-90 1 cap PO DAILY 09/02/23 01/20/25 mg-500 mg capsule valacyclovir 500 mg tablet 500 mg PO BID 09/02/23 01/20/25 loteprednol etabonate 0.5 % eye 1 drp OPR QAM 10/21/24 01/20/25 drops,suspension aspirin 81 mg tablet,delayed 81 mg PO DAILY 01/20/25 01/20/25 release latanoprost 0.005 % eye drops 1 drp OPR HS 01/20/25 01/20/25 trazodone 50 mg tablet 50 - 100 mg PO HS PRN insomnia 01/20/25 01/20/25 Previous Rx's Medication Instructions Recorded metoprolol tartrate 25 mg tablet 12.5 mg (1/2 x 25 mg) PO BID #90 12/26/23 tabs amlodipine 5 mg tablet 5 mg PO DAILY #90 tabs 07/31/24 Results & Data (ED) Vital Signs Vital Signs - 24 hr 01/20/25 10:58 01/20/25 11:20 01/20/25 11:22 Temperature 36.8 C Temperature Source Temporal Artery Scan Pulse Rate 73 67 Pulse Rate from SpO2 Sensor Respiratory Rate 16 Respiratory Effort / Characteristics Non-Labored Spontaneous Respiratory Depth Normal Blood Pressure 200/83 H 198/81 H Blood Pressure Mean 122 110 Pulse Oximetry 95 Oxygen Delivery Method Room Air Sepsis Recent Fever Within 48 Hours No Sepsis New/Unexplained Change in Mental Status No Sepsis Action Taken by Nursing No Action Required 01/20/25 11:30 01/20/25 11:32 01/20/25 11:39 Temperature Temperature Source Pulse Rate 69 Pulse Rate from SpO2 Sensor 68 Respiratory Rate 19 Respiratory Effort / Characteristics Respiratory Depth Blood Pressure 135/71 Blood Pressure Mean 109 Pulse Oximetry 96 92 Oxygen Delivery Method Room Air Sepsis Recent Fever Within 48 Hours Sepsis New/Unexplained Change in Mental Status Sepsis Action Taken by Nursing 01/20/25 11:57 01/20/25 12:00 01/20/25 12:06 Temperature Temperature Source Pulse Rate 66 72 Pulse Rate from SpO2 Sensor 66 72 Respiratory Rate 17 20 Respiratory Effort / Characteristics Respiratory Depth Blood Pressure 122/65 Blood Pressure Mean 76 Pulse Oximetry 94 94 Oxygen Delivery Method Sepsis Recent Fever Within 48 Hours Sepsis New/Unexplained Change in Mental Status Sepsis Action Taken by Nursing 01/20/25 13:09 01/20/25 13:30 01/20/25 13:30 Temperature Temperature Source Pulse Rate 63 64 Pulse Rate from SpO2 Sensor 63 65 Respiratory Rate 18 15 Respiratory Effort / Characteristics Respiratory Depth Blood Pressure 155/77 H Blood Pressure Mean 113 Pulse Oximetry 98 97 Oxygen Delivery Method Sepsis Recent Fever Within 48 Hours Sepsis New/Unexplained Change in Mental Status Sepsis Action Taken by Nursing Laboratory Data 01/20/25 11:11 01/20/25 11:11 Lab Results 01/20/25 Range/Units 11:11 WBC 7.17 (4.8-10.8) K/ul RBC 4.52 (4.20-5.40) M/uL Hgb 13.5 (12.0-16.0) g/dl Hct 41.7 (37.0-47.0) % MCV 92.3 (80.0-100.0) fL MCH 29.9 (25.0-34.0) pg MCHC 32.4 (32.0-36.0) g/dL RDW Std Deviation 46.3 (36.4-46.3) fL RDW Coeff of Ivonne 13.6 (11.5-14.5) % Plt Count 208 (130-400) K/uL MPV 9.5 (9.4-12.4) fL Immature Gran % (Auto) 0.3 % Neut % (Auto) 67.5 % Lymph % (Auto) 18.8 % [place] % (Auto) 7.4 % Eos % (Auto) 5.3 % Baso % (Auto) 0.7 % Neut # (Auto) 4.84 (1.40-6.50) K/uL Lymph # (Auto) 1.35 (1.20-3.40) K/uL [place] # (Auto) 0.53 (0.11-0.59) K/uL Eos # (Auto) 0.38 (0.00-0.50) K/uL Baso # (Auto) 0.05 (0.00-0.20) K/uL Immature Gran # (Auto) 0.02 (0.01-0.20) K/uL PT 10.5 (9.0-12.0) Seconds INR 1.0 (0.9-1.1) APTT 26 (21-31) Seconds PTT Ratio 1.0 Sodium 139 (136-145) mmol/L Potassium 3.9 (3.5-5.1) mmol/L Chloride 103 (98-107) mmol/L Carbon Dioxide 31 (21-32) mmol/L Anion Gap 5 (3-11) BUN 11 (6-23) mg/dl Creatinine 0.51 L (0.6-1.2) mg/dl Est Cr Clr Drug Dosing 98.4 ml/min eGFR 99.12 BUN/Creatinine Ratio 21.6 H (10-20) Glucose 108 H (70-99(Fasting)) mg/dl Calcium 9.5 (8.6-10.3) mg/dl Total Bilirubin 0.8 (0.2-1.0) mg/dl AST 19 (13-39) U/L ALT 20 (7-52) U/L Alkaline Phosphatase 69 (34-104) U/L Troponin I High Sens 14.4 H (0-14) pg/ml Total Protein 8.0 (6.0-8.3) gm/dl Albumin 4.6 (3.4-5.0) gm/dl Globulin 3.4 (2.5-4.0) gm/dl Albumin/Globulin Ratio 1.4 (0.9-2) Imaging Data Radiologist's Impression: Chest X-Ray 01/20/25 11:02 XR chest 1V portable CLINICAL HISTORY: Chest pain, nonspecific COMPARISON STUDY: 01/18/2025 FINDINGS: Stable pacemaker. Stable mild cardiomegaly without pulmonary vascular congestion. No effusion, consolidation, or pneumothorax. IMPRESSION: No acute findings. ACT 112: Negative or not required by law. Electronically signed by: Deep Rodríguez M.D. 01/20/2025 11:46 AM Discharge Plan Visit Data Chief Complaint: Chest Pain Stated Complaint: HEART ATTACK ED Provider: Palak Marley Discharge Problem: Chest pain Patient Disposition: Admitted As Inpatient Discharge Instructions Interventions: ED Discharge Assessment Last Done: 01/20/25 16:33 Discharge Problem: Chest pain Qualifiers: Chest pain type: unspecified Qualified Code(s): R07.9 - Chest pain, unspecified
--- NOTE | 2025-01-20 14:17 | History & Physical Report ---
Date of Service January 20, 2025 Assessment & Plan (1) Chest pain, rule out acute myocardial infarction: Plan 70-year-old female presents to the ER with 5 hours of constant chest pain. Patient is chest pain-free at time of admission. #Chest pain, rule out NC Concerning story for acute coronary syndrome but hours of constant chest pain with relatively normal initial troponin is reassuring. Plan to trend troponin overnight TTE Consult cardiology for ongoing recommendations #Hypertension Continue amlodipine, metoprolol VTE Prophylaxis - low risk Diet - heart healthy Disposition - observation on med/tele Admission and Anticipated Discharge Date Admission Date: January 20, 2025 History of Present Illness Chief Complaint: Chest pain Primary Care Provider: Fuad Reynolds MD Azra Anne is a 70 year old female who presents to the ER with chest pain. She felt fine yesterday and went to bed around 8 PM. She woke up at 10 PM with central substernal chest pain severity 10/10 with associated left arm, face and neck pain which lasted until 3 AM this morning. Associated frontal headache. No improvement with Tylenol or Mylanta. Worse lying flat with associated shortness of breath. Pain was constant, not intermittent. No acid taste or history of heartburn. She is a non-smoker. No prior diabetes, stroke or heart attack. She notes her hypertension is well-controlled on current medications. Allergies Allergy/AdvReac Type Severity Reaction Status Date / Time codeine Allergy Unknown CHEST PAIN Verified 01/20/25 14:21 Sulfa (Sulfonamide Allergy Unknown UNKNOWN Verified 01/20/25 14:21 Antibiotics) lactose AdvReac Unknown GI UPSET Verified 01/20/25 14:21 Home Medications Medication Instructions Recorded Confirmed Type omega 5-hmv-lsj-fish oil 60 mg-90 1 cap PO DAILY 09/02/23 01/20/25 History mg-500 mg capsule valacyclovir 500 mg tablet 500 mg PO BID 09/02/23 01/20/25 History metoprolol tartrate 25 mg tablet 12.5 mg (1/2 x 25 mg) PO BID #90 12/26/23 01/20/25 Rx tabs amlodipine 5 mg tablet 5 mg PO DAILY #90 tabs 07/31/24 01/20/25 Rx loteprednol etabonate 0.5 % eye 1 drp OPR QAM 10/21/24 01/20/25 History drops,suspension aspirin 81 mg tablet,delayed 81 mg PO DAILY 01/20/25 01/20/25 History release latanoprost 0.005 % eye drops 1 drp OPR HS 01/20/25 01/20/25 History trazodone 50 mg tablet 50 - 100 mg PO HS PRN insomnia 01/20/25 01/20/25 History 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 Epistaxis Left serous otitis media Hearing loss of left ear due to cerumen impaction Inflamed seborrheic keratosis of left cheek Lumbar spinal stenosis Lumbar radiculopathy Dysuria Lumbar degenerative disc disease Diarrhea Bilateral hip bursitis Chronic pharyngitis Chronic pharyngeal candidiasis Sinus bradycardia Tricuspid regurgitation Bilateral carotid artery stenosis Carotid stenosis Junctional rhythm Asymptomatic microscopic hematuria Syncope Colon cancer screening Dyslipidemia Hypomagnesemia Dyslipidemia Venous insufficiency Intertrigo Psoriasis Chronic venous insufficiency Hypertension, isolated systolic (Acute) Asymptomatic age-related postmenopausal state Mixed incontinence Medicare annual wellness visit, subsequent Encounter for perioperative consultation Urge incontinence (Acute) Presence of cardiac pacemaker (Acute) Stress incontinence (female) (male) (Acute) Medical History Migraine Pain due to varicose veins of both lower extremities Bleeding from varicose vein Cataract Bladder and urethra injury without mention of open wound into cavity Retinal tear of left eye Rotator cuff disorder Surgical History Status post placement of cardiac pacemaker History of suburethral sling procedure H/O eye surgery History of dilation and curettage History of hysteroscopy Pacemaker Status post lateral meniscus repair Status post rotator cuff repair H/O thyroidectomy History of cholecystectomy History of carpal tunnel release History of tonsillectomy Family History Mother Alzheimer disease 2015 Hypertension Stroke Sister Asthma Colonic polyp Diverticulitis Kidney stone Dyslipidemia Osteoporosis Father Diverticulitis Kidney stone Dementia Aunt SIDS (sudden syndrome) Denies family history of Rheumatoid arthritis Sudden Ovarian cancer Prostate cancer Diabetes Deep vein thrombosis Coronary heart disease Cerebral aneurysm Bipolar disorder Clotting disorder Crohn's disease Depression Heart disease Kidney disease Myocardial infarction Osteoarthritis Breast cancer Schizophrenia Congenital kidney disease Gestational diabetes Lung cancer COPD (chronic obstructive pulmonary disease) Colorectal cancer Pulmonary embolism Lung disease Cancer Ulcerative colitis Cystic kidney disease Social History Smoking Status: Never smoker Second Hand Exposure: No; Do You Dip or Chew Tobacco: No; Hx Alcohol Use: No Hx Substance Use: No Preferred Language: Bulgarian Communication Ability: Effective Visual Impairment: No Limitations Hearing Ability: Normal Electrical Design Engineer Required: No Beliefs That Will Affect Care: None marital status: Current Living Situation: Spouse current occupational status: unemployed Other Information That Helps Us Care for You: No Feels Safe at Home: Yes Safety Concerns: Feels Safe At This Time Childhood Exposure to Second-Hand Smoke: No caffeine: Yes during the past year weight has: remained stable Dental Care, Regularly: No Physical Activity Frequency: 5-6 Times per Week Physical Activity Frequency Comment: BICYCLING, WALK Seatbelt Use: always Sunscreen Use: No Assistive Devices: None Review of Systems Review of Systems: All systems reviewed & are unremarkable except as noted in HPI & below Physical Exam Constitutional: WD/WN, vitals as above Respiratory: normal respiratory effort, lungs clear to auscultation Cardiovascular: RRR, no murmur, no edema Gastrointestinal (Abdomen): normal bowel sounds, soft, nontender, no hepatosplenomegaly Skin: no rashes, warm and dry Psychiatric: A+Ox3, euthymic affect Results & Data Results & Data Vital Signs (Past 12 Hours) Vital Signs Temp Pulse Resp BP Pulse Ox O2 Del Method 01/20/25 12:06 72 20 94 01/20/25 12:00 122/65 01/20/25 11:57 66 17 94 01/20/25 11:39 69 19 92 01/20/25 11:32 96 Room Air 01/20/25 11:30 135/71 01/20/25 11:22 198/81 H 01/20/25 11:20 67 01/20/25 10:58 36.8 C 73 16 200/83 H 95 Room Air Laboratory Results Abnormal lab results 01/20/25 Range/Units 11:11 Creatinine 0.51 L (0.6-1.2) mg/dl BUN/Creatinine Ratio 21.6 H (10-20) Glucose 108 H (70-99(Fasting)) mg/dl Troponin I High Sens 14.4 H (0-14) pg/ml Second troponin downtrending. All labs reviewed. Diagnostic Findings XR chest 1V portable CLINICAL HISTORY: Chest pain, nonspecific COMPARISON STUDY: 01/18/2025 FINDINGS: Stable pacemaker. Stable mild cardiomegaly without pulmonary vascular congestion. No effusion, consolidation, or pneumothorax. IMPRESSION: No acute findings. Medications Administered ER Medications Given: None ECG Rate (beats per minute): 76 Rhythm: other (Atrial paced with prolonged AV conduction) Findings: no acute ischemic change Comparison ECG Date: from (January 18, 2025) Change: the following changes noted (Ventricle no longer being paced) Code Status & VTE Plan Code Status Full VTE Prophylaxis Plan VTE Prophylaxis will be ordered: Yes PG Care Time/CCT Total # of Minutes Spent Total Time Spent with Patient: Total time spent is greater than 50% in coordination of care (as documented) at patient's floor/unit and/or counseling patient: Coding Level of Care Code 59775 INT INP/OBS CARE 2/55MIN Diagnoses Chest pain, rule out acute myocardial infarction R07.9
[2025-01-20] MEDS ORDERED: traZODone HCL 50 MG TAB PO PRN (20:03)
[2025-01-20] MEDS: ACETAMINOPHEN 500 MG TAB PO PRN (21:04)
[2025-01-20] MEDS: LATANOPROST 0.005% OP SOLN 2.5 ML BTL OPR SCH (21:17)
[2025-01-20] MEDS: valACYclovir HCL 500 MG TABLET PO SCH (21:18)
[2025-01-20] MEDS: METOPROLOL TARTRATE 25 MG TAB PO SCH (21:18)
--- NOTE | 2025-01-20 22:06 | Electrocardiogram Report ---
Test Reason : Blood Pressure : */* mmHG Vent. Rate : 76 BPM Atrial Rate : 76 BPM P-R Int : 244 ms QRS Dur : 80 ms QT Int : 356 ms P-R-T Axes : 6 21 80 degrees QTcB Int : 400 ms Atrial-paced rhythm with prolonged AV conduction Nonspecific T wave abnormality Abnormal ECG When compared with ECG of 18-Jan-2025 10:06, (unconfirmed) Electronic atrial pacemaker has replaced AV dual-paced rhythm Confirmed by Santy Quintero ([id number]) on 01/20/2025 10:05:55 PM Referred By: Confirmed By: Santy Quintero
[2025-01-20 23:13] VITALS: RESP 18
[2025-01-21] MEDS: ASPIRIN 81 MG ECTAB PO SCH (08:29)
[2025-01-21] MEDS: OMEGA-3 (PURIFIED FISH OIL) 1 GM CAP PO SCH (08:30)
[2025-01-21] MEDS: amLODIPine BESYLATE 5 MG TAB PO SCH (08:30)
--- NOTE | 2025-01-21 09:33 | XCELERA ---
[id number]
[2025-01-21] MEDS: prednisoLONE acetate 1% OP SUSP 5 ML BTL OPR SCH (10:01)
[2025-01-21 11:54] VITALS: BP 128/80; TEMP 98.2; O2SAT 98
--- NOTE | 2025-01-21 12:13 | Discharge Summary ---
Discharge Summary Date of Service January 21, 2025 Principal Dx & Hospital Course #1 = Principal Diagnosis (1) Chest pain, rule out acute myocardial infarction: Troponin series unremarkable. Cardiac echo negative for regional wall motion abnormalities. She is currently chest pain-free. She has been seen by cardiology. She will be discharged home and follow-up with her PCP for scheduling of outpatient stress testing (2) Essential hypertension: Stable. Continue current medical management Plan Home today, January 21 Admission HPI Per Admitting Provider Azra Anne is a 70 year old female who presents to the ER with chest pain. She felt fine yesterday and went to bed around 8 PM. She woke up at 10 PM with central substernal chest pain severity 10/10 with associated left arm, face and neck pain which lasted until 3 AM this morning. Associated frontal headache. No improvement with Tylenol or Mylanta. Worse lying flat with associated shortness of breath. Pain was constant, not intermittent. No acid taste or history of heartburn. She is a non-smoker. No prior diabetes, stroke or heart attack. She notes her hypertension is well-controlled on current medications. Discharge Exam General-alert and oriented x3, no fever, no chills HEENT-head atraumatic and normocephalic, pupils equal and reactive to light, extraocular muscles intact Neck-no lymphadenopathy or thyromegaly, trachea midline Chest-clear to auscultation. No rales, wheezing or rhonchi Cardiac-regular rate and rhythm, normal S1 and S2 Abdomen-normal bowel sounds, no hepatosplenomegaly Extremities-no cyanosis, clubbing, or edema Neuro-cranial nerves II through XII intact, motor and sensory function within normal limits, strength symmetrical, no focal deficits Psych-normal affect, normal mood Discharge Plan Discharge Items Patient Disposition: Home - Self-Care Reason For Visit: CHEST PAIN RULE OUT MN Discharge Diagnosis: Atypical chest pain Activity: Resume your previous activity Non-emergency contact: Primary Care Provider Call non-emergency contact if: your symptoms worsen Follow-up/Referrals: Fuad Reynolds MD [Primary Care Provider] - Diet: Regular Addtl Attending Provider Instructions: All medications remain the same. See primary care provider as soon as possible for scheduling of outpatient stress testing Pending Studies at Discharge: No Stand-Alone Forms: Petrabytes, Smoking Cessation Medications and DC Order Prescriptions: Continued loteprednol etabonate 0.5 % drops,suspension 1 drp OPR QAM metoprolol tartrate 25 mg tablet 12.5 mg PO BID Qty: 90 3RF amlodipine 5 mg tablet 5 mg PO DAILY Qty: 90 3RF omega 5-fnk-twr-fish oil 60-90-500 mg capsule 1 cap PO DAILY valacyclovir 500 mg tablet 500 mg PO BID latanoprost 0.005 % drops 1 drp OPR HS aspirin 81 mg Tablet,Delayed Release (Dr/Ec) 81 mg PO DAILY trazodone 50 mg tablet 50 - 100 mg PO HS PRN (Reason: insomnia) Rx Instructions: 1-2 tabs orally QHS PRN; Discharge Orders: Discharge Order (Routine); Ordered 01/21/25 Ordered By: Andrew Gagnon Admission Data Admit Date/Time: 01/20/25 14:06 Attending Provider: Andrew Gagnon Admit Provider: Luis Espinoza Primary Care Provider: Fuad Reynolds Other Providers: Luis Espinoza; Santy Quintero Hospital Stay Data Consultations 01/20/25 14:02 ED Decision to Admit Stat 01/20/25 21:11 Consult Cardiology Routine Pending Results Patient Have Any Pending Studies at Discharge: No Discharge Instructions Given to Patient (Per Discharging Provider) All medications remain the same. See primary care provider as soon as possible for scheduling of outpatient stress testing Total Time Total Time Spent Total Time Spent (In Minutes): 45 minutes Coding Level of Care Code 37539 INP/OBS DISCH >30 MIN Diagnoses Chest pain, rule out acute myocardial infarction R07.9 Essential hypertension I10
--- NOTE | 2025-01-21 12:42 | Cardiology Consultation ---
Date of Consultation January 21, 2025 Assessment & Plan (1) Chest pain: (2) Presence of cardiac pacemaker: Plan 70-year-old woman status post recent atrial lead change out (3 days ago) who developed atypical chest/face/arm discomfort a day and a half after the procedure, shortly after an eye exam and initiation of a new eyedrop. No indication of acute coronary syndrome, ECG shows no ischemic changes and troponin values were unremarkable, echo showed no wall motion abnormalities. Temporal delay from pacemaker change out to onset of symptoms and temporal relationship to her eye exam suggest her symptoms were not related to the lead change out procedure. Possibly measurement of ocular pressures, less likely initiation of her latanoprost eyedrops as precipitating events. Her symptoms did not correlate with any of her past vasovagal type episodes (which involved lightheadedness, presyncope, and occasional syncope without chest pain). BP normotensive during her stay without orthostatic symptoms. Okay for discharge on her usual medications. She has follow-up scheduled with Dr. Thomas in 3 weeks. Case discussed with Dr. Gagnon. History of Present Illness Reason for Consultation: Chest pain with recent pacemaker insertion Requesting Physician: Andrew Gagnon MD Attending Physician: Andrew Gagnon MD History of Present Illness 70-year-old woman with remote history of recurrent vasovagal syncope, longstanding dual-chamber pacemaker, nonocclusive (less than 50%) carotid stenoses, and hypertension who recently (01/18/2025) underwent replacement of her atrial lead, the evening of the day following the procedure she developed chest, left arm, left facial pain prompting admission 01/20/2025. She felt well after the procedure on Saturday, on Saturday she was at the process treater and had her eye pressure measured (possibly on the right versus bilateral), and received a new eyedrop (latanoprost), 2 hours later she developed the onset of moderately severe diffuse chest pressure rating to her left arm and left face including near her left eye, she noted a headache as well. She did feel some dyspnea when lying down but denied any diaphoresis, lightheadedness, presyncope, or syncope. No palpitations. The symptoms lasted until about 3 in the morning and then resolved. She presented to the hospital the following afternoon and was admitted for further evaluation. Cardiac evaluation findings: ECG showed atrial paced rhythm with prolonged AV conduction and nonspecific T wave flattening. Compared with 01/20/2025 study, atrial pacing replaced AV dual pacing, otherwise no change. Troponin values 14, 12, 13, and 8. Echocardiogram was somewhat technically limited but showed normal LVEF and wall motion, normal RV EF and wall motion, no significant valvular disease, mild pulmonary hypertension. Compared with 2022 study, current study was more technically limited and no longer showed mild valvular disease, mild pulmonary hypertension was new. Telemetry monitoring showed predominantly atrial paced rhythm at 70 bpm, no dysrhythmias. She has had no further chest discomfort or any other symptoms since admission. I asked the nurses to have her ambulate, she did so and felt well. She had no somatic complaints at the time of my evaluation this morning. Allergies Allergy/AdvReac Type Severity Reaction Status Date / Time codeine Allergy Unknown CHEST PAIN Verified 01/20/25 14:21 Sulfa (Sulfonamide Allergy Unknown UNKNOWN Verified 01/20/25 14:21 Antibiotics) lactose AdvReac Unknown GI UPSET Verified 01/20/25 14:21 Home Medications Medication Instructions Recorded Confirmed Type omega 8-gnj-mrn-fish oil 60 mg-90 1 cap PO DAILY 09/02/23 01/20/25 History mg-500 mg capsule valacyclovir 500 mg tablet 500 mg PO BID 09/02/23 01/20/25 History metoprolol tartrate 25 mg tablet 12.5 mg (1/2 x 25 mg) PO BID #90 12/26/23 01/20/25 Rx tabs amlodipine 5 mg tablet 5 mg PO DAILY #90 tabs 07/31/24 01/20/25 Rx loteprednol etabonate 0.5 % eye 1 drp OPR QAM 10/21/24 01/20/25 History drops,suspension aspirin 81 mg tablet,delayed 81 mg PO DAILY 01/20/25 01/20/25 History release latanoprost 0.005 % eye drops 1 drp OPR HS 01/20/25 01/20/25 History trazodone 50 mg tablet 50 - 100 mg PO HS PRN insomnia 01/20/25 01/20/25 History Patient History Medical History Migraine Pain due to varicose veins of both lower extremities Bleeding from varicose vein Cataract Bladder and urethra injury without mention of open wound into cavity Retinal tear of left eye Rotator cuff disorder Surgical History Status post placement of cardiac pacemaker History of suburethral sling procedure H/O eye surgery History of dilation and curettage History of hysteroscopy Pacemaker Status post lateral meniscus repair Status post rotator cuff repair H/O thyroidectomy History of cholecystectomy History of carpal tunnel release History of tonsillectomy Family History Mother Alzheimer disease 2015 Hypertension Stroke Sister Asthma Colonic polyp Diverticulitis Kidney stone Dyslipidemia Osteoporosis Father Diverticulitis Kidney stone Dementia Aunt SIDS (sudden infant syndrome) Denies family history of Rheumatoid arthritis Sudden Ovarian cancer Prostate cancer Diabetes Deep vein thrombosis Coronary heart disease Cerebral aneurysm Bipolar disorder Clotting disorder Crohn's disease Depression Heart disease Kidney disease Myocardial infarction Osteoarthritis Breast cancer Schizophrenia Congenital kidney disease Gestational diabetes Lung cancer COPD (chronic obstructive pulmonary disease) Colorectal cancer Pulmonary embolism Lung disease Cancer Ulcerative colitis Cystic kidney disease Social History Smoking Status: Never smoker Second Hand Exposure: No; Do You Dip or Chew Tobacco: No; Hx Alcohol Use: No Hx Substance Use: No Preferred Language: Bahamian Communication Ability: Effective Visual Impairment: No Limitations Hearing Ability: Normal Technical Director Required: No Beliefs That Will Affect Care: None marital status: Current Living Situation: Spouse current occupational status: unemployed Feels Safe at Home: Yes Childhood Exposure to Second-Hand Smoke: No caffeine: Yes during the past year weight has: remained stable Dental Care, Regularly: No Physical Activity Frequency: 5-6 Times per Week Physical Activity Frequency Comment: BICYCLING, WALK Seatbelt Use: always Sunscreen Use: No Assistive Devices: None Physical Exam Physical Exam: Elderly white female in no distress. Afebrile. BP normotensive. Pulse 70 bpm and regular. Respirations 18 unlabored. Skin: no ecchymoses or generalized lesions. HEENT: unremarkable. Neck: JVP at the clavicle at 90 degrees, no carotid bruits. Lungs: clear. Cardiac: regular rhythm, normal S1-2, no murmur. Abdomen: benign. Extremities: no edema, pulses intact. Neurologic: normal affect and conversation, nonfocal. Results & Data Vital Signs (Past 12 Hours) Vital Signs Temp Pulse Pulse Resp BP Pulse Ox O2 Del Method 01/21/25 11:54 98.2 F 78 18 128/80 98 Room Air 01/21/25 08:06 98.1 F 65 18 150/69 H 94 Room Air 01/21/25 07:18 64 01/21/25 02:53 98.1 F 60 18 118/59 L 97 Room Air PG Care Time/CCT Total # of Minutes Spent Total Time Spent with Patient: Total time spent is greater than 50% in coordination of care (as documented) at patient's floor/unit and/or counseling patient: Coding Level of Care Code 56736 IN/OBS CONSULT LVL 3,45M Diagnoses Chest pain R07.9 Chest pain type: unspecified Presence of cardiac pacemaker Z95.0 (1) Chest pain Chest pain type: unspecified Qualified Code(s): R07.9 - Chest pain, unspecif ied
[2025-01-21 13:27] VITALS: PULSE 66
== END 2025-01-21 14:49 | disposition home or self-care (01) ==
LOC: ED 10:56 → EDINP 10:56 → SUATTDRO 14:06 → 2N 16:33

== ENCOUNTER 2025-06-11 05:45 | Inpatient (IN) ==
--- NOTE | 2025-05-12 12:41 | PAT Medication Instructions ---
Medication Instructions Date of Service May 12, 2025 Home Medications Medication Instructions Recorded metoprolol tartrate 25 mg tablet 25 mg PO BID #180 tabs 01/28/25 omega 1-eoy-bfu-fish oil 60 mg-90 mg-500 mg capsule 1 cap PO BID valacyclovir 500 mg tablet 500 mg PO BID loteprednol etabonate 0.5 % eye drops,suspension 1 drp OPR QAM aspirin 81 mg tablet,delayed release 81 mg PO QAM latanoprost 0.005 % eye drops 1 drp OPR HS metoprolol tartrate 25 mg tablet 25 mg PO BID amlodipine 5 mg tablet 5 mg PO QAM calcium carbonate (Calcium 600) 1,200 mg PO DAILY cranberry 1 tab PO BID ASK your prescriber and surgeon aspirin 81 mg tablet,delayed release 81 mg PO QAM STOP taking 2 weeks before surgery (or as soon as possible if surgery is within 2 weeks) omega 3-tuq-htq-fish oil 60 mg-90 mg-500 mg capsule 1 cap PO BID DO NOT take the morning of surgery calcium carbonate (Calcium 600) 1,200 mg PO DAILY cranberry 1 tab PO BID Take morning of surgery With a small sip of water, OTHERWISE NOTHING TO EAT OR DRINK AFTER MIDNIGHT: valacyclovir 500 mg tablet 500 mg PO BID loteprednol etabonate 0.5 % eye drops,suspension 1 drp OPR QAM metoprolol tartrate 25 mg tablet 25 mg PO BID amlodipine 5 mg tablet 5 mg PO QAM Take evening before surgery valacyclovir 500 mg tablet 500 mg PO BID latanoprost 0.005 % eye drops 1 drp OPR HS metoprolol tartrate 25 mg tablet 25 mg PO BID cranberry 1 tab PO BID Other Notes If you have any questions please call us at [phone] or [phone] or [phone] or [phone]
--- NOTE | 2025-05-18 09:27 | Anesthesiology Consultation ---
Date of Service May 18, 2025 Assessment & Plan (1) Encounter for pre-operative examination: - Infectious disease screening: Per assessment on 05/18/25- No known recent infectious disease contacts or current infectious disease symptoms. - Pacemaker: [employer] PPM. Case reviewed by Dr. Agarwal. Requests pacer rep perioperatively if possible. [facility] (with OR) + [employer] rep made aware. Received email response from [employer] rep (Blaine Castro) that they are aware/can accommodate DOS pacer rep presence request. - Patient acceptable risk for surgery pending surgeon-ordered PCP ([facility], 06/02) and [facility]) preop evaluations. Chart Review Chart Review: Patient seen in Pre Admission Testing Teaching & Discussion Pre-Anesthesia Teaching/Discussion Notes: Instructed NPO after midnight before surgery,except medications with 15 cc of water. Medication instructions provid ed according to the PAT guidelines. History Surgery Operation Date: 06/11/25 07:30 Proposed Procedures p Anterior Lumbar Interbody Fusion L4-L5, L5-S1,L4-S1 Posterior Fusion, L3 and L4 Laminectomy with CT Navigation and Spinal Cord Monitoring - Fuad Aviles MD s Anterior Lumbar Interbody Discectomy with Fusion L4-L5, L5-S1 - Will Hogan, Height/Weight Height: 5 ft 3 in Weight: 74 kg Allergies Allergy/AdvReac Type Severity Reaction Status Date / Time codeine Allergy Unknown Chest Pain Verified 05/18/25 10:47 Sulfa (Sulfonamide Allergy Unknown Unknown Verified 05/18/25 10:47 Antibiotics) Medications Home Medications Medication Instructions Recorded Confirmed Last Taken omega 2-bgk-wmf-fish oil 60 mg-90 1 cap PO BID 09/02/23 05/18/25 01/19/25 mg-500 mg capsule valacyclovir 500 mg tablet 500 mg PO BID 09/02/23 05/18/25 01/20/25 loteprednol etabonate 0.5 % eye 1 drp OPR QAM 10/21/24 05/18/25 01/20/25 drops,suspension aspirin 81 mg tablet,delayed 81 mg PO QAM 01/20/25 05/18/25 01/20/25 release latanoprost 0.005 % eye drops 1 drp OPR HS 01/20/25 05/18/25 01/19/25 metoprolol tartrate 25 mg tablet 25 mg PO BID #180 tabs 01/28/25 05/18/25 Unknown amlodipine 5 mg tablet 5 mg PO QAM 05/11/25 05/18/25 Unknown calcium carbonate (Calcium 600) 1,200 mg PO DAILY 05/11/25 05/18/25 Unknown cranberry extract 200 mg capsule 200 mg PO BID 05/18/25 05/18/25 Unknown Past Medical History Medical History Bilateral carotid artery stenosis Carotid duplex 09/16/24: NICHOLAS/LICA <50% stenosis Chronic venous insufficiency Dyslipidemia Hx Hiatal hernia "Tiny" per patient History of claustrophobia History of hypertension History of shingles ~2021 (forehead) Still takes medication and uses eye drops daily to problems from the remote hx shingles in her right eye/head History of urinary incontinence Hx of gastroesophageal reflux (GERD) Hx of psoriasis Hx of sinus bradycardia Lumbar degenerative disc disease Hx Lumbar spinal stenosis Hx Migraine Hx Pacemaker Follows with [facility] cardio Exercise / Class Metabolic Activity III < 4 Walking/Shop/Light housework Past Family History Family History Mother Alzheimer disease 2014 Hypertension Stroke Sister Asthma Colonic polyp Diverticulitis Kidney stone Dyslipidemia Osteoporosis Father Diverticulitis Kidney stone Dementia Heart disease Aunt SIDS (sudden infant syndrome) Denies family history of Rheumatoid arthritis Sudden Ovarian cancer Prostate cancer Diabetes Deep vein thrombosis Coronary heart disease Cerebral aneurysm Bipolar disorder Clotting disorder Crohn's disease Depression Kidney disease Myocardial infarction Osteoarthritis Breast cancer Schizophrenia Congenital kidney disease Gestational diabetes Lung cancer COPD (chronic obstructive pulmonary disease) Colorectal cancer Pulmonary embolism Lung disease Cancer Ulcerative colitis Cystic kidney disease Past Surgical History Surgical History H/O eye surgery Laser eye surgery for retinal tears, left eye only removal scar tissue from both eyes H/O thyroidectomy (2011) Left sided (R/t softball sized mass on left side) History of carpal tunnel release Right History of cholecystectomy History of dilation and curettage History of hysteroscopy History of myelography 04/19/25 History of removal of cyst Left hand, first finger History of suburethral sling procedure History of surgical removal of ganglion cyst Left wrist History of tonsillectomy History of varicose vein procedure Hx of bilateral cataract extraction Status post lateral meniscus repair Right knee Status post placement of cardiac pacemaker 1990- initial placement ("misdiagnosed, didn't actually need the pacemaker at the time, reason it was never replaced before 2022") 10/2023- removal old generator, new dual chamber pacer placed, [facility] 01/2025- lead revision, [facility] Status post rotator cuff repair Left shoulder arthroscopy with RCR (04/04/2018): Grade 1 view, MAC#3, ETT 7.0 + regional at [facility] Past Anesthesia History No Family Hx of Anesthesia Complications and Other (Postop indigestion) History of PONV No Hx of Motion Sickness Social History Smoking Status: Never smoker Do You Dip or Chew Tobacco: No Hx Alcohol Use: No Hx Substance Use: No substance use type: does not use Review of Systems Patient denies chest pain, shortness of breath, fever, chills, cough, wheezing, palpitations. Physical Exam Vital Signs BP 130/79 P 69 TEMP 98.0 SP02 96%RA RESP 18 Physical Mildly decreased cervical extension range of motion. Full TMJ range of motion. TMD > 3.5 finger breaths Mallampati Score I Dentition: upper/lower full dentures Lungs: clear throughout to auscultation Cardiac: regular rate and rhythm, no murmurs noted Spine: normal Carotid arteries: negative bruit Extremities: no LE edema Lab Results Anesthesia Preop Results Results Anesthesia Widget: WBC 5.65 K/ul (4.8-10.8) 05/18/25 Hgb 12.8 g/dl (12.0-16.0) 05/18/25 Hct 39.5 % (37.0-47.0) 05/18/25 Plt 238 K/uL (130-400) 05/18/25 Na 141 mmol/L (136-145) 05/18/25 K 4.1 mmol/L (3.5-5.1) 05/18/25 Cl 104 mmol/L (98-107) 05/18/25 CO2 31 mmol/L (21-32) 05/18/25 BUN 9 mg/dl (6-23) 05/18/25 Creat 0.57 mg/dl (0.6-1.2) L 05/18/25 Glucose Level 99 mg/dl (70-99(Fasting)) 05/18/25 PT 10.7 Seconds (9.0-12.0) 05/18/25 PTT 25 Seconds (21-31) 05/18/25 INR 1.0 (0.9-1.1) 05/18/25 HA1c 6.0 % (4.5-5.6) H 05/18/25 Blood Type A Positive 05/18/25 Antibody Screen NEGATIVE 05/18/25 Testing Electrocardiogram Date: 01/20/25 Atrial-paced rhythm with prolonged AV conduction. 76bpm. NS TWA. Chest X-Ray Date: 01/20/25 FINDINGS: Stable pacemaker. Stable mild cardiomegaly without pulmonary vascular congestion. No effusion, consolidation, or pneumothorax. IMPRESSION: No acute findings. Echocardiogram Date: 01/21/25 LVEF 60-65%. LV wall motion is normal. Mild cLVH. RVSP 30-40mmhg. No significant valvular disease. "Mild" pulmonary HTN. Stress Test Date: 02/16/25 SUMMARY: 1. Lexiscan myocardial perfusion study negative for infarct or ischemia. 2. Normal left ventricular size and systolic function. Calculated ejection fraction 74%. No wall motion abnormalities. 3. No Lexiscan induced ECG changes. 4. No anginal symptoms. Other Testing Carotid duplex Date: 09/16/24 R/L ICA stenosis < 50%. B/L vertebral artery flow. Pacer check Date: 04/07/25 [employer]. AP 88%. CLINICAL RN LIAISON 16%. Pacing mode DDD-CLS. Battery/lead status: 80%. Normal parameters noted on battery and lead(s).
[2025-06-11] MEDS: LR 15ML/HR IV SCH (06:05)
[2025-06-11] MEDS: LR 60ML/HR IV SCH (06:11)
[2025-06-11] MEDS: ACETAMINOPHEN 500 MG TAB PO SCH (06:15)
[2025-06-11] MEDS ORDERED: REMIFENTANIL HCL 1 MG VIAL IV ONE ×3 (07:01→10:37)
[2025-06-11] MEDS ORDERED: NEOSTIGMINE METHYLSULFATE 1 MG/ML 10ML VIAL ONE (07:02)
[2025-06-11] MEDS ORDERED: ROCURONIUM BROMIDE 10 MG/ML 5 ML VIAL IV ONE (07:02)
[2025-06-11] MEDS ORDERED: DEXAMETHASONE SOD INJ 4 MG/ML VIAL ONE (07:02)
[2025-06-11] MEDS ORDERED: ONDANSETRON INJ 2 MG/ML 2 ML VIAL ONE (07:02)
[2025-06-11] MEDS ORDERED: GLYCOPYRROLATE 0.2 MG/ML VIAL ONE (07:02)
[2025-06-11] MEDS ORDERED: LIDOCAINE 2% 2 ML VIAL/AMP(20MG/ML) INFIL ONE (07:02)
[2025-06-11] MEDS ORDERED: PROPOFOL IV EMULSION 10 MG/ML 20 ML VIAL IV ONE ×2 (07:02→10:36)
[2025-06-11] MEDS ORDERED: MIDAZOLAM HCL 1 MG/ML 2ML VIAL ONE (07:04)
[2025-06-11] MEDS ORDERED: KETAMINE HCL 10MG/ML SYR ONE (07:06)
[2025-06-11] MEDS ORDERED: HYDROmorphone INJ 2 MG/ML SYR/VIAL ONE (07:13)
--- NOTE | 2025-06-11 07:13 | History & Physical Bridge Note ---
Date of Service June 11, 2025 History & Physical Bridge Note I have examined the patient, reviewed the History & Physical and in the interval since the performance of the History & Physical I have noted the following changes of clinical significance: no changes noted
[2025-06-11] MEDS ORDERED: HYDROmorphone INJ 1 MG/ML SYRINGE IV PRN ×2 (07:16→17:59)
[2025-06-11] MEDS ORDERED: DROPERIDOL 5 MG/2 ML VIAL IV PRN (07:16)
[2025-06-11] MEDS ORDERED: ATROPINE SULFATE 0.1 MG/ML 10ML SYR IV PRN ×2 (07:16→16:53)
--- NOTE | 2025-06-11 07:31 | History & Physical Report ---
Date of Service June 11, 2025 Assessment & Plan (1) Lumbar spondylosis: (2) Spondylolisthesis, lumbar region: (3) Lumbar radiculopathy: Plan I have discussed the treatment options with the patient, she has exhausted conservative management in the form of medications as well as epidural injections without significant relief. We discussed based on her pathology I think she would have good relief with combined anterior posterior fusion at L4-5 and L5-S1. Plan would be to perform an anterior lumbar interbody fusion at L4-5 and L5-S1 with Dr. Hogan from general surgery up performing the approach. This would involve anterior instrumentation of the spine, followed by posterior segmental pedicle screw instrumentation under CT guided navigation. Would also plan for decompressive laminectomy at L4-5 given the severity of the stenosis as well as laminectomy to decompress the L3-4 disc space. Procedure reviewed again today, patient marked. History of Present Illness Chief Complaint: Lumbar Radiculopathy Primary Care Provider: Fuad Reynolds MD Prior to seeing me at her last visit she had already undergone considerable ou tpatient conservative management including activity modification, oral medications as well as pain management epidural injections. She has signs of significant neurogenic claudication in the bilateral lower extremities, severe axial back pain as well as symptoms consistent with an L5 radiculopathy. She has failed conservative management has had symptoms for greater than 1 year duration without relief. No changes in symptoms since office visit. Allergies Allergy/AdvReac Type Severity Reaction Status Date / Time codeine Allergy Unknown Chest Pain Verified 06/11/25 06:03 Sulfa (Sulfonamide Allergy Unknown Unknown Verified 06/11/25 06:03 Antibiotics) Home Medications Medication Instructions Recorded Confirmed Type omega 6-fad-jiu-fish oil 60 mg-90 1 cap PO BID 09/02/23 06/11/25 History mg-500 mg capsule valacyclovir 500 mg tablet 500 mg PO BID 09/02/23 06/11/25 History loteprednol etabonate 0.5 % eye 1 drp OPR QAM 10/21/24 06/11/25 History drops,suspension aspirin 81 mg tablet,delayed 81 mg PO QAM 01/20/25 06/11/25 History release latanoprost 0.005 % eye drops 1 drp OPR HS 01/20/25 06/11/25 History metoprolol tartrate 25 mg tablet 25 mg PO BID #180 tabs 01/28/25 06/11/25 Rx amlodipine 5 mg tablet 5 mg PO QAM 05/11/25 06/11/25 History calcium carbonate (Calcium 600) 1,200 mg PO DAILY 05/11/25 06/11/25 History cranberry extract 200 mg capsule 200 mg PO BID 05/18/25 06/11/25 History famotidine 20 mg tablet 20 mg PO DAILY PRN reflux 06/04/25 06/11/25 History Past Med/Surg History Problem List Encounter for pre-operative examination Lumbar spondylosis Spondylolisthesis, lumbar region Baastrup disease of lumbar spine Chronic GERD Urinary frequency Essential hypertension Sacroiliitis 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 Left serous otitis media Hearing loss of left ear due to cerumen impaction Inflamed seborrheic keratosis of left cheek Lumbar spinal stenosis Lumbar radiculopathy Lumbar degenerative disc disease Bilateral hip bursitis Sinus bradycardia Tricuspid regurgitation Bilateral carotid artery stenosis Carotid stenosis Junctional rhythm Asymptomatic microscopic hematuria Dyslipidemia Hypomagnesemia Asymptomatic age-related postmenopausal state Venous insufficiency Mixed incontinence Chronic venous insufficiency Intertrigo Psoriasis Encounter for perioperative consultation Urge incontinence (Acute) Hypertension, isolated systolic (Acute) Presence of cardiac pacemaker (Acute) Stress incontinence (female) (male) (Acute) Medical History Bilateral carotid artery stenosis Carotid duplex 09/16/24: NICHOLAS/LICA <50% stenosis Chronic venous insufficiency Dyslipidemia Hx Hiatal hernia "Tiny" per patient History of claustrophobia History of hypertension History of shingles ~2021 (forehead) Still takes medication and uses eye drops daily to problems from the remote hx shingles in her right eye/head History of urinary incontinence Hx of gastroesophageal reflux (GERD) Hx of psoriasis Hx of sinus bradycardia Lumbar degenerative disc disease Hx Lumbar spinal stenosis Hx Migraine Hx Pacemaker Follows with [facility] cardio Surgical History H/O eye surgery Laser eye surgery for retinal tears, left eye only removal scar tissue from both eyes H/O thyroidectomy (2011) Left sided (R/t softball sized mass on left side) History of carpal tunnel release Right History of cholecystectomy History of dilation and curettage History of hysteroscopy History of myelography 04/19/25 History of removal of cyst Left hand, first finger History of suburethral sling procedure History of surgical removal of ganglion cyst Left wrist History of tonsillectomy History of varicose vein procedure Hx of bilateral cataract extraction Status post lateral meniscus repair Right knee Status post placement of cardiac pacemaker 1990- initial placement ("misdiagnosed, didn't actually need the pacemaker at the time, reason it was never replaced before 2022") 10/2023- removal old generator, new dual chamber pacer placed, [facility] 01/2025- lead revision, [facility] Status post rotator cuff repair Left shoulder arthroscopy with RCR (04/04/2018): Grade 1 view, MAC#3, ETT 7.0 + regional at [facility] Family History Mother Alzheimer disease 2014 Hypertension Stroke Sister Asthma Colonic polyp Diverticulitis Kidney stone Dyslipidemia Osteoporosis Father Diverticulitis Kidney stone Dementia Heart disease Aunt SIDS (sudden infant syndrome) Denies family history of Rheumatoid arthritis Sudden Ovarian cancer Prostate cancer Diabetes Deep vein thrombosis Coronary heart disease Cerebral aneurysm Bipolar disorder Clotting disorder Crohn's disease Depression Kidney disease Myocardial infarction Osteoarthritis Breast cancer Schizophrenia Congenital kidney disease Gestational diabetes Lung cancer COPD (chronic obstructive pulmonary disease) Colorectal cancer Pulmonary embolism Lung disease Cancer Ulcerative colitis Cystic kidney disease Social History (Updated 05/18/25 @ 11:58 by Arabella Wiggins RN) Smoking Status: Never smoker Second Hand Exposure: No; Do You Dip or Chew Tobacco: No; Tobacco Cessation Education Requested by Patient: No Hx Alcohol Use: No Hx Substance Use: No Preferred Language: [place]ese Communication Ability: Effective Visual Impairment: No Limitations Hearing Ability: Normal 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: No Beliefs That Will Affect Care: None marital status: Current Living Situation: Spouse 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 Physical Exam Constitutional: Well developed, appears stated age Psych: patient is coherent and answers questions appropriately, normal affect Eye: Normal gaze, no redness to sclera, pupils round and equal Pulm: Normal respiratory effort, no wheezing Cardiovascular: no significant peripheral edema, palpable DP/PT pulses Skin shows no rashes, lesions No midline or paraspinal tenderness with palpation over the lumbar spine, no stepoffs Motor strength is 5/5 in bilateral hip flexors, quadriceps, tibialis anterior, extensor hallucis longus, and gastroc/soleus complex Sensation intact to light touch in the L2-S1 dermatomes bilaterally Diminished patellar reflexes Results & Data Results & Data Laboratory Results . Diagnostic Findings Imaging: CT myelogram of the lumbar spine was available for review today and interpreted personally. Moderate degree of central canal lateral recess stenosis from central disc bulge at L3-4. Grade 1 spondylolisthesis at L4-5, there is complete obliteration of the contrast material at the L4-5 level indicative of severe stenosis at this level. CT scan also shows severe disc degeneration at L5-S1 with osteophyte formation in the foramen bilaterally likely affecting the exiting L5 nerve roots however there is no contrast at this level on the myelogram due to the severity of stenosis. PG Care Time/CCT Total # of Minutes Spent Total Time Spent with Patient: Total time spent is greater than 50% in coordination of care (as documented) at patient's floor/unit and/or counseling patient: Coding Level of Care Code None Diagnoses Lumbar spondylosis M47.816 Spondylolisthesis, lumbar region M43.16 Lumbar radiculopathy M54.16
[2025-06-11] MEDS ORDERED: DexMEDEtomidine HCL IV 100 MCG/ML VIAL IV ONE (07:38)
[2025-06-11] MEDS ORDERED: PHENYLEPHRINE HCL 10 MG/ML VIAL ONE (10:40)
[2025-06-11] MEDS ORDERED: PROPOFOL IV EMULSION 10 MG/ML 100 ML VIAL IV ONE (10:40)
[2025-06-11 13:25] LABS: Hematocrit (blood only) 31.0 % (37.0-47.0); Hemoglobin 10.2 g/dl (12.0-16.0); Mean Corpuscular Hemoglobin 30.7 pg (25.0-34.0); Mean Corpuscular Volume 93.4 fL (80.0-100.0); Platelet Count 170 K/uL (130-400); RDW Standard Deviation 46.1 fL (36.4-46.3); Red Blood Count 3.32 M/uL (4.20-5.40); White Blood Count 12.35 K/ul (4.8-10.8)
[2025-06-11] MEDS ORDERED: ALBUMIN HUMAN 5% 12.5 GM/250 ML VIAL IV ONE (13:44)
[2025-06-11] MEDS ORDERED: PHENYLEPHRINE HCL 25 MG/250 ML NSS IV ONE (13:49)
[2025-06-11] MEDS ORDERED: VASOPRESSIN 20 UNIT/ML VIAL ONE (14:13)
[2025-06-11] MEDS: VISIPAQUE IV PRN (14:19)
[2025-06-11] MEDS: GELATIN SPONGE SZ 100 ONE (14:50)
[2025-06-11] MEDS: THROMBIN FOR SOLN 20000 UNIT KIT ONE (14:51)
[2025-06-11] MEDS ORDERED: SUGAMMADEX SODIUM 200 MG/2 ML VIAL IV ONE ×2 (14:55→16:01)
[2025-06-11] MEDS ORDERED: ceFAZolin 330 MG/ML 1 GM VIAL ONE (14:56)
--- NOTE | 2025-06-11 15:53 | Fluoroscopy Report ---
FL lumbar spine 2-3V CLINICAL HISTORY: L3-L4 LAMI L4-S1 ANTEIROR INTERBODY L4-S1 POSTERIOR FUSION COMPARISON STUDY: None FLUOROSCOPY TIME: 15 seconds FLUOROSCOPY IMAGES: 1 EXPOSURE DOSE: 6 mGy FINDINGS: Fluoroscopy was provided for lumbar surgery. IMPRESSION: Intraoperative fluoroscopy. ACT 112: Negative or not required by law. Electronically signed by: Deep Rodríguez M.D. 06/11/2025 3:52 PM
--- NOTE | 2025-06-11 16:46 | Operative Report ---
PG Post Operative Report Pre & Post Diagnosis Operation Date: 06/11/25 07:00 1. Lumbar stenosis with claudication 2. Lumbar radiculopathy. 3. Lumbar Spondylolisthesis I identified the patient and participated in the time-out.: Yes Procedure Operation Date: 06/11/25 07:00 1. L4-5 anterior lumbar discectomy and fusion (78194). 2. L4-5 interbody spacer placement with arthrodesis (52414). 3. L4 and L5 anterior instrumentation (55129). 4. Allograft for Spinal Fusion () Instrumentation Eli COOMBS, Araiza Plate Surgeon Fuad Aviles MD - Ortho Spine Matttana Hogan DO - General Surgery (access) Senior Market Intelligence Consultant Zeke LACEY Estimated Blood Loss 1,000 Findings See Below Anterior Approach by Dr. Hogan, Vascular bypass by Dr. Abdi Specimens None Anesthesia Type General Complications Vascular bypass by Dr. Abdi Disposition Disposition: Surgical ICU Indications The patient continues to have severe symptoms that have been unresponsive to extensive conservative management. After discussing the benefits and risks of continued conservative management versus operative intervention, the patient elected to proceed with surgery. Description of Procedure In the preoperative holding area, the patient was marked with a marking pen. They were taken to the operating room and anesthesia was initiated. Neuromonitoring was utilized. Antibiotics were administered. A timeout was performed. Dr. Hogan of general surgery began the anterior exposure. During exposure Dr. Abdi was called from vascular surgery for vascular repair/bypass. Please see the separate operative reports for details. After vascular procedure was completed, SSEPs of the lower extremities were improved and discussion was had with Dr. Hogan and Dr. Abdi, decision was made that it was safe to proceed with the L4-5 ALIF, however given scar tissue and repair the L5-S1 level would not be reasonable. The L4-5 level was confirmed using an x-ray. A total diskectomy was completed at L4-5 using a combination of curettes, rongeurs and pituitaries. The endplates were prepared with a rasp to obtain bleeding bone. An interbody spacer was selected, packed with allograft bone material, and implanted at L4-5 to encourage interbody fusion. An appropriately sized anterior lumbar plate was selected and implanted. Screws were placed into the bodies of L4 and L5 for added stability. X-rays confirmed appropriate position of the hardware and spacer. The closure was completed by Dr. Hogan. I attest to the content of the Intraoperative Record and any orders documented therein. Any exceptions are noted below.
[2025-06-11] MEDS: HYDROmorphone INJ 1 MG/ML SYRINGE IV PRN (16:52)
--- NOTE | 2025-06-11 16:52 | Operative Report ---
PG Post Operative Report Pre & Post Diagnosis Operation Date: 06/11/25 07:00 <No data on this case meets the specified criteria> Emergent intraoperative consult during anterior spine exposure I identified the patient and participated in the time-out.: No Procedure Operation Date: 06/11/25 07:00 <No data on this case meets the specified criteria> left iliac-iliac artery bypass using 8mm PTFE (CPT 58502) Surgeon Cornelius Abdi MD Supplier Engineer Zeke LACEY Estimated Blood Loss 1,000 Findings See Below Dense inflammatory adhesions in the retroperitoneum. Left internal iliac artery had been divided prior to my arrival. Reconstruction performed using in terposition of 8mm heparin bonded PTFE Specimens none Anesthesia Type General Complications none Disposition Disposition: Surgical ICU Description of Procedure This was an IntraOp consultation. I was called to the OR 3 because of dense adhesions in the retroperitoneum limiting the ability to expose the L4-L5 and L5-S1 disc interspaces. On my arrival, a retroperitoneal incision had been created. A self retraining retractor was placed. There were dense adhesions between what appeared to be either the vena cava or the left common iliac vein and the retroperitoneum. Small branches were taken with 2-0 silk ties to mobilize this. In the course of providing this exposure, there was a large branch off of what appeared to be the right common iliac artery that had been clipped and divided. The lumen size was that of an iliac artery. The right leg was noted to be cool and neuromonitoring suggested severely dampened waveforms in the right lower extremity. The anatomy was unclear at this point, however both ends of the transected artery were identified. I therefore chose to quickly reanastomose these rather than spend time attempting to better define the anatomy given that the reconstruction was technically feasible and fairly straightforward. Patient was given 5000 units of intravenous heparin. The distal end was freshened up and controlled with a clamp. An 8 mm piece of heparin-bonded PTFE was selected and sewn end-to-end to the distal vessel using running CV6 [place]-Yvon suture. I did pass a [place] catheter down here and was able to retrieve some thrombus and debris. The clamp was moved onto the PTFE graft. The inflow vessel was then identified. An arteriotomy was created on the medial aspect. This initially appeared to be the right common iliac artery. Thrombus was removed. The graft was spatulated fashion to fit and sewn end-to-side onto this artery using running CV4 [place]-Yvon suture. Prior to completion backbleeding for bleeding flushing maneuvers were performed and the anastomosis was then completed tested secured and hemostatic. Flow was restored. Neuromonitoring tracings improved significantly and the right foot was noted to be significantly warmer. I then percutaneously accessed what appeared to be the distal aorta with a 5 [place]itan micropuncture sheath and performed an arteriogram. This then enabled us to delineate the anatomy which showed that the catheter was actually in the left common iliac artery and the repair was of the left hypogastric artery. The repair was intact with brisk flow out the left hypogastric artery into the anterior and posterior divisions. Both common and external iliac arteries were widely patent as was the right internal iliac artery. I imaged down to the femoral bifurcations bilaterally with good flow noted. Doppler interrogation of both feet revealed triphasic waveforms. The wound bed was made hemostatic and the procedure was turned back over to Dr. Aviles who performed his procedure on the disc space and is dictated separately by him. Because of the emergent nature of the case no consent was obtained. I attest to the content of the Intraoperative Record and any orders documented therein. Any exceptions are noted below.
[2025-06-11] MEDS ORDERED: ONDANSETRON INJ 2 MG/ML 2 ML VIAL IV PRN ×2 (16:53→17:59)
--- NOTE | 2025-06-11 17:06 | Anesthesiology Progress Note ---
Date of Service June 11, 2025 Anesthesia Post Procedure Vital Signs Vital Signs: Temp Pulse Resp BP BP Pulse Ox O2 Del Method 06/11/25 16:40 67 24 104/50 L 111/58 L 100 Oxymask 06/11/25 16:30 67 17 95/45 L 110/54 L 100 Oxymask 06/11/25 16:20 36 C L 71 22 98/43 L 98 Oxymask 06/11/25 06:33 167/78 H 06/11/25 06:16 37.1 C 68 20 205/73 H 97 Room Air O2 Flow Rate 06/11/25 16:40 6 06/11/25 16:30 8 06/11/25 16:20 8 06/11/25 06:33 06/11/25 06:16 Pain Intensity Lower Back: Pain Intensity: 3 Transfer of Care Handoff Completed per policy Notes Mental Status: alert / awake / arousable Patient Amnestic to Procedure: Yes Nausea / Vomiting: adequately controlled Pain: adequately controlled Airway Patency, RR, SpO2: stable & adequate BP & HR: stable & adequate Hydration State: stable & adequate Anesthetic Complications: no major complications apparent
[2025-06-11 17:36] LABS: Hematocrit (blood only) 22.5 % (37.0-47.0); Hemoglobin 7.4 g/dl (12.0-16.0); Mean Corpuscular Hemoglobin 31.6 pg (25.0-34.0); Mean Corpuscular Volume 96.2 fL (80.0-100.0); Platelet Count 158 K/uL (130-400); RDW Standard Deviation 47.1 fL (36.4-46.3); Red Blood Count 2.34 M/uL (4.20-5.40); White Blood Count 12.54 K/ul (4.8-10.8)
--- NOTE | 2025-06-11 17:36 | Post Operative Brief Note ---
PG Immediate Post Op with CF Date of Surgery June 11, 2025 Pre & Post Diagnosis Operation Date: 06/14/25 07:00 <No data on this case meets the specified criteria> Pre op diagnosis: 1.Lumbar stenosis with claudication 2. lumbar radiculopathy 3. lumbar spondylolisthesis Post op diagnosis: 1. Lumbar stenosis with claudication 2. Lumbar radiculopathy 3. Lumbar spondylolisthesis 4. Inadvertent ligation of hypogastric artery I identified the patient and participated in the time-out.: Yes Procedure Operation Date: 06/14/25 07:00 <No data on this case meets the specified criteria> 1. Anterior approach (retroperitoneal) for access to L4/5 L5/S1. 2. Carpenters Surgeon for L4/L5 anterior lumbar discectomy and fusion ( Dr. Aviles) 3. Carpenters surgeon for L4/L5 interbody spacer placement with arthrodesis ( Dr. Aviles) 4. Carpenters surgeon for L4/5 anterior anterior instrumentation ( Dr. Aviles) 5. Carpenters surgeon for Left Iliac-Iliac bypass graft ( Dr. Abdi) Surgeon Will Hogan DO Carpenters Zeke LACEY Estimated Blood Loss 1,000 Findings Consistent with Post-Op Diagnosis Specimens Specimen Description: None per surgeon Drains Kaur Catheter (16 fr catheter inserted without difficulty draining clear yellow urine, anesthesia monitoring urine output) Anesthesia Type General Complications inadvertent ligation of hypogastric artery
[2025-06-11 17:53] LABS: Alanine Aminotransferase 180.0 U/L (7-52); Albumin Globulin Ratio 2.4 (0.9-2); Alkaline Phosphatase 45.0 U/L (34-104); Anion Gap 10.0 (3-11); Bilirubin,Total 1.0 mg/dl (0.2-1.0); Blood Urea Nitrogen 11.0 mg/dl (6-23); Calcium 7.3 mg/dl (8.6-10.3); Carbon Dioxide 21.0 mmol/L (21-32); Chloride 110.0 mmol/L (98-107); Creatinine Clr Calc Pharmacy 98.3 ml/min; Globulin 1.4 gm/dl (2.5-4.0); Glucose 217.0 mg/dl (70-99(Fasting)); Potassium 3.7 mmol/L (3.5-5.1); Sodium 141.0 mmol/L (136-145); Total Protein 4.7 gm/dl (6.0-8.3)
[2025-06-11] MEDS ORDERED: MAGNESIUM HYDROXIDE SUSP 30 ML UDC PO PRN (17:59)
[2025-06-11] MEDS ORDERED: DO NOT ADMINISTER FLU VACCINE PRN (17:59)
[2025-06-11] MEDS ORDERED: SOD PHOSPHATE/SOD BIPHOSPHATE ENEMA 132 ML BTL PR PRN (17:59)
[2025-06-11] MEDS ORDERED: NALOXONE HCL 0.4 MG/1 ML VIAL/CARP IV PRN (17:59)
[2025-06-11] MEDS ORDERED: ACETAMINOPHEN 1,000 MG/100 ML VIAL IV PRN (17:59)
[2025-06-11] MEDS ORDERED: diphenhydrAMINE Capsule 25 MG CAP PO PRN (17:59)
[2025-06-11] MEDS ORDERED: DO NOT ADMINISTER PNEUMOCOCCAL VACCINE PRN (17:59)
[2025-06-11] MEDS ORDERED: FAMOTIDINE 20 MG TAB PO PRN (17:59)
[2025-06-11] MEDS ORDERED: PROMETHAZINE 12.5 MG/50.5 ML BAG IV PRN (17:59)
--- NOTE | 2025-06-11 18:12 | Critical Care Consultation ---
Date of Consultation June 11, 2025 Assessment & Plan (1) Spondylolisthesis, lumbar region: (2) Acute blood loss anemia: (3) Essential hypertension: (4) Chronic venous insufficiency: (5) Arterial insufficiency: (6) Dyslipidemia: (7) Transaminitis: Plan Reason Critically Ill: 70-year-old female came to the hospital to have spine surgery done but she was found to have cold limb in the OR and ended up with left iliac iliac bypass. Sent to ICU for further care Past medical history: Peripheral vascular disease, hypertension, GERD Neuro - [facility]: Negative Cardiac - --Atherosclerosis of the right iliac artery Right cool limb during the OR on 06/11/2025 S/p iliac iliac bypass on 06/11/[address] Abdi -- History of hypertension On metoprolol, amlodipine at home Respiratory - -- No acute issues Titrate off oxygen Incentive spirometer will be beneficial GI - -- Transaminitis Could be from hypotension Continue to trend RENAL/LYTES - -- Monitor BUNs/creatinine Avoid nephrotoxic medication ENDO - -- ICU hypoglycemia protocol HEME - -- Acute blood loss anemia Likely postsurgical Monitor H&H, transfuse to keep hemoglobin greater than 8 ID - --No clear signs of infection Musculoskeletal: - -- Lumbar stenosis with claudication S/p L4-L5 anterior lumbar discectomy and fusion, L4-L5 interbody spacer placement and allograft spinal fusion on 06/11/2025 --Prophylaxis VTE: None GI: None Lines: Left radial Diet: Cardiac Plan: Patient seems to have dropped 3 g of hemoglobin. She did get approximately 2 L of IV fluids in the OR Repeat H&H stat There is also elevation of AST and ALT, will repeat CMP again to make sure they are real. This could all be from the shock liver If they are significantly increasing then ultrasound of the liver will be ordered Monitor H&H Doppler lower extremities I have personally spent [] minutes of critical care time in the direct management of this patient. This is a life/limb threatening event. This includes time spent evaluating patient, direct bedside care, chart review, placing orders, interpretation of diagnostic studies, discussion with consultants, patient, and family members, as well as other required patient management activities. This time is exclusive of all separately billable procedures, and teaching time and separate from and in addition to any other critical care service time. History of Present Illness Attending Physician: Fuad Aviles MD History of Present Illness 70-year-old female came to the hospital to have spine surgery done but she was found to have cold right leg in the OR and ended up with left iliac iliac bypass. Sent to ICU for further care Past medical history: Hypertension, GERD, history of carotid atherosclerosis At the time of examination patient was saturating 100% on 2 L nasal cannula She was not in any respiratory distress Her heart rate was in the 60s with paced rhythm Arterial line was in place which was reading as BP in the mid 100s with diastolic in the 40s, MAP was still around 60 for 65 The only thing she complained was were abdominal discomfort No nausea vomiting No shortness of breath No headache No blurry vision No abdominal bruising appreciated She had very good pulses bilateral lower extremity The right leg was little cold to touch compared to the left Social history: Lifetime non-smoker, no alcohol, denies any 3 drug use. 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 Allergies Allergy/AdvReac Type Severity Reaction Status Date / Time codeine Allergy Unknown Chest Pain Verified 06/11/25 06:03 Sulfa (Sulfonamide Allergy Unknown Unknown Verified 06/11/25 06:03 Antibiotics) Home Medications Medication Instructions Recorded Confirmed Type omega 4-bny-wjf-fish oil 60 mg-90 1 cap PO BID 09/02/23 06/11/25 History mg-500 mg capsule valacyclovir 500 mg tablet 500 mg PO BID 09/02/23 06/11/25 History loteprednol etabonate 0.5 % eye 1 drp OPR QAM 10/21/24 06/11/25 History drops,suspension aspirin 81 mg tablet,delayed 81 mg PO QAM 01/20/25 06/11/25 History release latanoprost 0.005 % eye drops 1 drp OPR HS 01/20/25 06/11/25 History metoprolol tartrate 25 mg tablet 25 mg PO BID #180 tabs 01/28/25 06/11/25 Rx amlodipine 5 mg tablet 5 mg PO QAM 05/11/25 06/11/25 History calcium carbonate (Calcium 600) 1,200 mg PO DAILY 05/11/25 06/11/25 History cranberry extract 200 mg capsule 200 mg PO BID 05/18/25 06/11/25 History famotidine 20 mg tablet 20 mg PO DAILY PRN reflux 06/04/25 06/11/25 History Patient History Medical History Bilateral carotid artery stenosis Carotid duplex 09/16/24: NICHOLAS/LICA <50% stenosis Chronic venous insufficiency Dyslipidemia Hx Hiatal hernia "Tiny" per patient History of claustrophobia History of hypertension History of shingles ~2021 (forehead) Still takes medication and uses eye drops daily to problems from the remote hx shingles in her right eye/head History of urinary incontinence Hx of gastroesophageal reflux (GERD) Hx of psoriasis Hx of sinus bradycardia Lumbar degenerative disc disease Hx Lumbar spinal stenosis Hx Migraine Hx Pacemaker Follows with [facility] [place] cardio Surgical History H/O eye surgery Laser eye surgery for retinal tears, left eye only removal scar tissue from both eyes H/O thyroidectomy (2011) Left sided (R/t softball sized mass on left side) History of carpal tunnel release Right History of cholecystectomy History of dilation and curettage History of hysteroscopy History of myelography 04/19/25 History of removal of cyst Left hand, first finger History of suburethral sling procedure History of surgical removal of ganglion cyst Left wrist History of tonsillectomy History of varicose vein procedure Hx of bilateral cataract extraction Status post lateral meniscus repair Right knee Status post placement of cardiac pacemaker 1990- initial placement ("misdiagnosed, didn't actually need the pacemaker at the time, reason it was never replaced before 2022") 10/2023- removal old generator, new dual chamber pacer placed, [facility] 01/2025- lead revision, [facility] Status post rotator cuff repair Left shoulder arthroscopy with RCR (04/04/2018): Grade 1 view, MAC#3, ETT 7.0 + regional at [facility] Family History Mother Alzheimer disease 2015 Hypertension Stroke Sister Asthma Colonic polyp Diverticulitis Kidney stone Dyslipidemia Osteoporosis Father Diverticulitis Kidney stone Dementia Heart disease Aunt SIDS (sudden syndrome) Denies family history of Rheumatoid arthritis Sudden Ovarian cancer Prostate cancer Diabetes Deep vein thrombosis Coronary heart disease Cerebral aneurysm Bipolar disorder Clotting disorder Crohn's disease Depression Kidney disease Myocardial infarction Osteoarthritis Breast cancer Schizophrenia Congenital kidney disease Gestational diabetes Lung cancer COPD (chronic obstructive pulmonary disease) Colorectal cancer Pulmonary embolism Lung disease Cancer Ulcerative colitis Cystic kidney disease Social History (Updated 05/18/25 @ 11:58 by Arabella Wiggins RN) Smoking Status: Never smoker Second Hand Exposure: No; Do You Dip or Chew Tobacco: No; Hx Alcohol Use: No Hx Substance Use: No Preferred Language: Malaysian Communication Ability: Effective Visual Impairment: No Limitations Hearing Ability: Normal 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 Required: No Beliefs That Will Affect Care: None marital status: Current Living Situation: Spouse 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 Feels Safe at Home: Yes Childhood Exposure to Second-Hand Smoke: No caffeine: Yes during the past year weight has: remained stable Dental Care, Regularly: No Physical Activity Frequency: 5-6 Times per Week Physical Activity Frequency Comment: BICYCLING, WALK Seatbelt Use: always Sunscreen Use: No Assistive Devices: None Review of Systems 2 Review of Systems: All systems reviewed & are unremarkable except as noted in HPI & below Physical Exam 2 Physical Exam: Constitutional: No acute distress HEENT: EOMI, PERRLA Respiratory system: Good air entry bilaterally, no wheeze, no rhonchi, no crackles CVS: S1-S2 positive, no murmurs or gallops Abdomen: Soft, nontender, nondistended, positive bowel sounds x4, midline dressing in place Extremities: Good pulses bilateral dorsalis pedis as well as radialis, no edema Neuro: Awake alert oriented x3 Psych: Normal mood and affect G/U: Positive Kaur Skin: no rashes, warm and dry Lymphatic: no cervical or axillary lymphadenopathy Results & Data Results & Data Vital Signs (Past 12 Hours) Vital Signs Temp Pulse Resp BP BP Pulse Ox O2 Del Method 06/11/25 17:35 62 15 110/46 L 99/58 L 100 Nasal Cannula 06/11/25 17:20 66 17 96/44 L 99/58 L 95 Nasal Cannula 06/11/25 17:10 72 16 102/49 L 108/42 L 100 Oxymask 06/11/25 17:00 36.3 C L 65 17 102/48 L 110/53 L 100 Oxymask 06/11/25 16:50 66 12 110/51 L 116/78 100 Oxymask 06/11/25 16:40 67 24 104/50 L 111/58 L 100 Oxymask 06/11/25 16:30 67 17 95/45 L 110/54 L 100 Oxymask 06/11/25 16:20 36 C L 71 22 98/43 L 98 Oxymask 06/11/25 06:33 167/78 H 06/11/25 06:16 37.1 C 68 20 205/73 H 97 Room Air O2 Flow Rate 06/11/25 17:35 2 06/11/25 17:20 2 06/11/25 17:10 4 06/11/25 17:00 4 06/11/25 16:50 4 06/11/25 16:40 6 06/11/25 16:30 8 06/11/25 16:20 8 06/11/25 06:33 06/11/25 06:16 Laboratory Results 06/11/25 16:40 06/11/25 16:40 Coding Level of Care Code 28037 CRITICAL CARE 1ST 30-74M Diagnoses Spondylolisthesis, lumbar region M43.16 Acute blood loss anemia D62 Essential hypertension I10 Chronic venous insufficiency I87.2 Arterial insufficiency I77.1 Dyslipidemia E78.5 Transaminitis R74.01
[2025-06-11 18:55] LABS: Hematocrit (blood only) 25.0 % (37.0-47.0); Hemoglobin 7.9 g/dl (12.0-16.0)
[2025-06-11 19:12] LABS: Alanine Aminotransferase 189.0 U/L (7-52); Albumin Globulin Ratio 1.8 (0.9-2); Alkaline Phosphatase 54.0 U/L (34-104); Anion Gap 10.0 (3-11); Bilirubin,Total 1.0 mg/dl (0.2-1.0); Blood Urea Nitrogen 10.0 mg/dl (6-23); Calcium 7.7 mg/dl (8.6-10.3); Carbon Dioxide 21.0 mmol/L (21-32); Chloride 109.0 mmol/L (98-107); Creatinine Clr Calc Pharmacy 83.3 ml/min; Globulin 1.9 gm/dl (2.5-4.0); Glucose 194.0 mg/dl (70-99(Fasting)); Potassium 4.0 mmol/L (3.5-5.1); Sodium 140.0 mmol/L (136-145); Total Protein 5.3 gm/dl (6.0-8.3)
[2025-06-11] MEDS: VANCOMYCIN HCL 1000MG/20ML VIAL ONE (19:36)
[2025-06-11] MEDS: HYDROmorphone INJ 1 MG/ML SYRINGE ONE (19:36)
[2025-06-11] MEDS: BUPIVACAINE/EPINEPHRINE 0.5% MPF 1:200,000 30 ML VIAL ONE (19:36)
[2025-06-11] MEDS: LACTATED RINGER'S 1,000 ML IV SCH (19:37)
[2025-06-11] MEDS: FLOSEAL HEMOSTATIC MATRIX 10ML TOP ONE (19:39)
--- NOTE | 2025-06-11 19:54 | XRay Report ---
EXAM: XR chest 1V portable CLINICAL HISTORY: f/u. TECHNIQUE: An X-ray image of the chest is obtained in AP projection. COMPARISON: 01/20/2025 FINDINGS: Pulmonary Parenchyma: No evidence of consolidation, collapse, or focal opacities. No pulmonary nodules are identified. No evidence of pleural effusion or pleural thickening. Heart and Mediastinum: Mild cardiomegaly and bilateral hilar vascular prominence appears stable. Bony Thorax: Bony thorax appears intact without fractures or deformities. Soft Tissues: Soft tissues overlying the chest wall are unremarkable. Pacemaker device is seen in situ and another line projecting over the right heart. (clinical correlation advised) IMPRESSION: 1. No acute cardiopulmonary abnormalities are identified. 2. Stability on comparison. Electronically signed by Ross Penaloza 06-11-2025 7:53 PM
[2025-06-11] MEDS: KETOROLAC TROMETHAMINE 15 MG/ML VIAL IV SCH (20:01)
[2025-06-11] MEDS: LATANOPROST 0.005% OP SOLN 2.5 ML BTL OPR SCH (20:03)
[2025-06-11] MEDS: GABAPENTIN 300 MG CAP PO SCH (20:04)
[2025-06-11] MEDS: DOCUSATE SODIUM/SENNA 50/8.6MG TAB PO SCH (20:06)
[2025-06-11] MEDS ORDERED: METOPROLOL TARTRATE 25 MG TAB PO SCH (21:00)
--- NOTE | 2025-06-11 21:56 | History & Physical Report ---
Date of Service June 11, 2025 Assessment & Plan Admission and Anticipated Discharge Date Admission Date: June 11, 2025 History of Present Illness Primary Care Provider: Fuad Reynolds MD Allergies Allergy/AdvReac Type Severity Reaction Status Date / Time codeine Allergy Unknown Chest Pain Verified 06/11/25 06:03 Sulfa (Sulfonamide Allergy Unknown Unknown Verified 06/11/25 06:03 Antibiotics) Home Medications Medication Instructions Recorded Confirmed Type omega 8-lmj-lwl-fish oil 60 mg-90 1 cap PO BID 09/02/23 06/11/25 History mg-500 mg capsule valacyclovir 500 mg tablet 500 mg PO BID 09/02/23 06/11/25 History loteprednol etabonate 0.5 % eye 1 drp OPR QAM 10/21/24 06/11/25 History drops,suspension aspirin 81 mg tablet,delayed 81 mg PO QAM 01/20/25 06/11/25 History release latanoprost 0.005 % eye drops 1 drp OPR HS 01/20/25 06/11/25 History metoprolol tartrate 25 mg tablet 25 mg PO BID #180 tabs 01/28/25 06/11/25 Rx amlodipine 5 mg tablet 5 mg PO QAM 05/11/25 06/11/25 History calcium carbonate (Calcium 600) 1,200 mg PO DAILY 05/11/25 06/11/25 History cranberry extract 200 mg capsule 200 mg PO BID 05/18/25 06/11/25 History famotidine 20 mg tablet 20 mg PO DAILY PRN reflux 06/04/25 06/11/25 History Past Med/Surg History Problem List (Updated 06/11/25 @ 19:04 by Jaylyn Taveras MD, [facility]) Transaminitis Arterial insufficiency Acute blood loss anemia Encounter for pre-operative examination Lumbar spondylosis Spondylolisthesis, lumbar region Baastrup disease of lumbar spine Chronic GERD Urinary frequency Essential hypertension Sacroiliitis 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 Left serous otitis media Hearing loss of left ear due to cerumen impaction Inflamed seborrheic keratosis of left cheek Lumbar spinal stenosis Lumbar radiculopathy Lumbar degenerative disc disease Bilateral hip bursitis Sinus bradycardia Tricuspid regurgitation Bilateral carotid artery stenosis Carotid stenosis Junctional rhythm Asymptomatic microscopic hematuria Dyslipidemia Hypomagnesemia Asymptomatic age-related postmenopausal state Venous insufficiency Mixed incontinence Chronic venous insufficiency Intertrigo Psoriasis Encounter for perioperative consultation Urge incontinence (Acute) Hypertension, isolated systolic (Acute) Presence of cardiac pacemaker (Acute) Stress incontinence (female) (male) (Acute) Medical History Bilateral carotid artery stenosis Carotid duplex 09/16/24: NICHOLAS/LICA <50% stenosis Chronic venous insufficiency Dyslipidemia Hx Hiatal hernia "Tiny" per patient History of claustrophobia History of hypertension History of shingles ~2021 (forehead) Still takes medication and uses eye drops daily to problems from the remote hx shingles in her right eye/head History of urinary incontinence Hx of gastroesophageal reflux (GERD) Hx of psoriasis Hx of sinus bradycardia Lumbar degenerative disc disease Hx Lumbar spinal stenosis Hx Migraine Hx Pacemaker Follows with [facility] [place] Surgical History H/O eye surgery Laser eye surgery for retinal tears, left eye only removal scar tissue from both eyes H/O thyroidectomy (2011) Left sided (R/t softball sized mass on left side) History of carpal tunnel release Right History of cholecystectomy History of dilation and curettage History of hysteroscopy History of myelography 04/19/25 History of removal of cyst Left hand, first finger History of suburethral sling procedure History of surgical removal of ganglion cyst Left wrist History of tonsillectomy History of varicose vein procedure Hx of bilateral cataract extraction Status post lateral meniscus repair Right knee Status post placement of cardiac pacemaker 1990- initial placement ("misdiagnosed, didn't actually need the pacemaker at the time, reason it was never replaced before 2022") 10/2023- removal old generator, new dual chamber pacer placed, [facility] 01/2025- lead revision, [facility] Status post rotator cuff repair Left shoulder arthroscopy with RCR (04/04/2018): Grade 1 view, MAC#3, ETT 7.0 + regional at [facility] Family History Mother Alzheimer disease 2015 Hypertension Stroke Sister Asthma Colonic polyp Diverticulitis Kidney stone Dyslipidemia Osteoporosis Father Diverticulitis Kidney stone Dementia Heart disease Aunt SIDS (sudden infant syndrome) Denies family history of Rheumatoid arthritis Sudden Ovarian cancer Prostate cancer Diabetes Deep vein thrombosis Coronary heart disease Cerebral aneurysm Bipolar disorder Clotting disorder Crohn's disease Depression Kidney disease Myocardial infarction Osteoarthritis Breast cancer Schizophrenia Congenital kidney disease Gestational diabetes Lung cancer COPD (chronic obstructive pulmonary disease) Colorectal cancer Pulmonary embolism Lung disease Cancer Ulcerative colitis Cystic kidney disease Social History (Updated 05/18/25 @ 11:58 by Arabella Wiggins RN) Smoking Status: Never smoker Second Hand Exposure: No; Do You Dip or Chew Tobacco: No; Tobacco Cessation Education Requested by Patient: No Hx Alcohol Use: No Hx Substance Use: No Preferred Language: Yi Communication Ability: Effective Visual Impairment: No Limitations Hearing Ability: Normal Poultry Tender Required: No Beliefs That Will Affect Care: None marital status: Current Living Situation: Spouse 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 Other Information That Helps Us Care for You: No Feels Safe at Home: Yes Safety Concerns: Feels Safe At This Time Childhood Exposure to Second-Hand Smoke: No caffeine: Yes during the past year weight has: remained stable Dental Care, Regularly: No Physical Activity Frequency: 5-6 Times per Week Physical Activity Frequency Comment: BICYCLING, WALK Seatbelt Use: always Sunscreen Use: No Assistive Devices: None Results & Data Results & Data Vital Signs (Past 12 Hours) Vital Signs Temp Pulse Pulse Resp BP BP BP 06/11/25 21:00 66 16 113/53 L 06/11/25 20:27 64 16 120/55 L 06/11/25 19:48 72 06/11/25 19:27 36.5 C 69 19 112/46 L 06/11/25 18:09 71 15 06/11/25 18:03 68 20 06/11/25 18:00 112/53 L 06/11/25 18:00 112/53 L 06/11/25 18:00 06/11/25 17:35 62 15 110/46 L 99/58 L 06/11/25 17:20 66 17 96/44 L 99/58 L 06/11/25 17:10 72 16 102/49 L 108/42 L 06/11/25 17:00 36.3 C L 65 17 102/48 L 110/53 L 06/11/25 16:50 66 12 110/51 L 116/78 06/11/25 16:40 67 24 104/50 L 111/58 L 06/11/25 16:30 67 17 95/45 L 110/54 L 06/11/25 16:20 36 C L 71 22 98/43 L Pulse Ox O2 Del Method O2 Flow Rate 06/11/25 21:00 100 Nasal Cannula 2 06/11/25 20:27 100 Nasal Cannula 2 06/11/25 19:48 06/11/25 19:27 98 Nasal Cannula 2 06/11/25 18:09 100 06/11/25 18:03 97 06/11/25 18:00 06/11/25 18:00 06/11/25 18:00 Nasal Cannula 2 06/11/25 17:35 100 Nasal Cannula 2 06/11/25 17:20 95 Nasal Cannula 2 06/11/25 17:10 100 Oxymask 4 06/11/25 17:00 100 Oxymask 4 06/11/25 16:50 100 Oxymask 4 06/11/25 16:40 100 Oxymask 6 06/11/25 16:30 100 Oxymask 8 06/11/25 16:20 98 Oxymask 8 Code Status & VTE Plan VTE Prophylaxis Plan VTE Prophylaxis will be ordered: No PG Care Time/CCT Total # of Minutes Spent Total Time Spent with Patient: Total time spent is greater than 50% in coordination of care (as documented) at patient's floor/unit and/or counseling patient: Coding
[2025-06-11] MEDS: ACETAMINOPHEN 500 MG TAB PO PRN (22:33)
--- NOTE | 2025-06-11 22:34 | Hospitalist Consultation ---
Date of Consultation June 11, 2025 Assessment & Plan (1) Acute blood loss anemia: (2) Transaminitis: (3) Chronic GERD: (4) Essential hypertension: Plan 70yo female with history of HTN, HLP, GERD, chronic back pain presenting for planned L4-L5 anterior lumbar interbody fusion. Patient found to have cool RLE in the OR and had an urgent iliac-iliac artery bypass by Dr. Abdi. Patient admitted to the MICU for continued care #Acute blood loss anemia - patient with EBL of 1L in the OR today. Hgb 10.2 --> 7.4 --> 7.9 with Hct 31 --> 22.5 --> 25. She is hemodynamically stable -Repeat CBC at 12:00 then again in AM 04:44 -Transfuse for Hgb <8 #Elevated AWU=573, OYW=684 -Repeat LFTs at 12:00, if continue to increase will check RUQUS #Chronic GERD -Famotidine 20mg po q 12 hours PRN #Hypertension - Holding home Amlodipine and Metoprolol for now - Continue to monitor BP History of Present Illness Reason for Consultation: medical management Attending Physician: Fuad Aviles MD History of Present Illness 70yo female with history of HTN, HLP and GERD presenting to [facility] today with chronic back pain - plan for combined anterior posterior fusion at L4-L5 and L5- S1. In the OR patient noted to have a cool right leg with compromised blood flow. Vascular surgery was urgently consulted to the OR and performed a successful left iliac-iliac artery bypass by Dr. Abdi. Then proceeded with the L4-L5 anterior lumbar discectomy and fusion Estimated blood loss - 1000mL Patient has been admitted the the MICU for ongoing care. Plan to return to the OR on 06/14/25 for additional lumbar surgery - 4-L5 posterior fusion Patient offers no complaints at present She denies pain Is asking for something to drink Allergies Allergy/AdvReac Type Severity Reaction Status Date / Time codeine Allergy Unknown Chest Pain Verified 06/11/25 06:03 Sulfa (Sulfonamide Allergy Unknown Unknown Verified 06/11/25 06:03 Antibiotics) Home Medications Medication Instructions Recorded Confirmed Type omega 0-xnu-cgr-fish oil 60 mg-90 1 cap PO BID 09/02/23 06/11/25 History mg-500 mg capsule valacyclovir 500 mg tablet 500 mg PO BID 09/02/23 06/11/25 History loteprednol etabonate 0.5 % eye 1 drp OPR QAM 10/21/24 06/11/25 History drops,suspension aspirin 81 mg tablet,delayed 81 mg PO QAM 01/20/25 06/11/25 History release latanoprost 0.005 % eye drops 1 drp OPR HS 01/20/25 06/11/25 History metoprolol tartrate 25 mg tablet 25 mg PO BID #180 tabs 01/28/25 06/11/25 Rx amlodipine 5 mg tablet 5 mg PO QAM 05/11/25 06/11/25 History calcium carbonate (Calcium 600) 1,200 mg PO DAILY 05/11/25 06/11/25 History cranberry extract 200 mg capsule 200 mg PO BID 05/18/25 06/11/25 History famotidine 20 mg tablet 20 mg PO DAILY PRN reflux 06/04/25 06/11/25 History Patient History Medical History History of claustrophobia Pacemaker Follows with [facility] cardio Lumbar spinal stenosis Hx Lumbar degenerative disc disease Hx Hx of sinus bradycardia History of urinary incontinence Hx of psoriasis History of shingles ~2021 (forehead) Still takes medication and uses eye drops daily to problems from the remote hx shingles in her right eye/head History of hypertension Dyslipidemia Hx Chronic venous insufficiency Hx of gastroesophageal reflux (GERD) Hiatal hernia "Tiny" per patient Bilateral carotid artery stenosis Carotid duplex 09/16/24: NICHOLAS/LICA <50% stenosis Migraine Hx Surgical History History of removal of cyst Left hand, first finger History of surgical removal of ganglion cyst Left wrist History of myelography 04/19/25 Hx of bilateral cataract extraction History of varicose vein procedure Status post placement of cardiac pacemaker 1990- initial placement ("misdiagnosed, didn't actually need the pacemaker at the time, reason it was never replaced before 2022") 10/2023- removal old generator, new dual chamber pacer placed, [facility] 01/2025- lead revision, [facility] History of suburethral sling procedure H/O eye surgery Laser eye surgery for retinal tears, left eye only removal scar tissue from both eyes History of dilation and curettage History of hysteroscopy Status post lateral meniscus repair Right knee Status post rotator cuff repair Left shoulder arthroscopy with RCR (04/04/2018): Grade 1 view, MAC#3, ETT 7.0 + regional at [facility] H/O thyroidectomy (2011) Left sided (R/t softball sized mass on left side) History of cholecystectomy History of carpal tunnel release Right History of tonsillectomy Family History Mother Alzheimer disease 2015 Hypertension Stroke Sister Asthma Colonic polyp Diverticulitis Kidney stone Dyslipidemia Osteoporosis Father Diverticulitis Kidney stone Dementia Heart disease Aunt SIDS (sudden infant syndrome) Denies family history of Rheumatoid arthritis Sudden Ovarian cancer Prostate cancer Diabetes Deep vein thrombosis Coronary heart disease Cerebral aneurysm Bipolar disorder Clotting disorder Crohn's disease Depression Kidney disease Myocardial infarction Osteoarthritis Breast cancer Schizophrenia Congenital kidney disease Gestational diabetes Lung cancer COPD (chronic obstructive pulmonary disease) Colorectal cancer Pulmonary embolism Lung disease Cancer Ulcerative colitis Cystic kidney disease Social History Smoking Status: Never smoker Second Hand Exposure: No; Do You Dip or Chew Tobacco: No; Tobacco Cessation Education Requested by Patient: No Hx Alcohol Use: No Hx Substance Use: No Preferred Language: Kazakh Communication Ability: Effective Visual Impairment: No Limitations Hearing Ability: Normal Hospital Unit Coordinator Required: No Beliefs That Will Affect Care: None marital status: Current Living Situation: Spouse 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 Other Information That Helps Us Care for You: No Feels Safe at Home: Yes Safety Concerns: Feels Safe At This Time Childhood Exposure to Second-Hand Smoke: No caffeine: Yes during the past year weight has: remained stable Dental Care, Regularly: No Physical Activity Frequency: 5-6 Times per Week Physical Activity Frequency Comment: BICYCLING, WALK Seatbelt Use: always Sunscreen Use: No Assistive Devices: None Review of Systems Review of Systems: All systems reviewed & are unremarkable except as noted in HPI & below Physical Exam Physical Exam: General: patient resting comfortably, NAD, non-toxic in appearance, AA&O x 4 Skin: warm, dry, intact, no rashes or lesions HEENT: NC/AT, PERRL, EOMI, anicteric sclera, conjunctiva without injection, external ear normal to inspection and nontender, nares patent, moist mucus membranes, dentition intact, no oropharyngeal lesions, neck supple, trachea midline, no LAD, no thyromegaly, no JVD Heart: +S1/S2, regular, no m/r/g Lungs: equal air entry bilaterally, no rales/rhonchi/wheezes Abd: +BS, soft, abdominal dressing in place with no bleeding Ext: warm, 2+ pulses in UE/LE bilaterally, no clubbing/cyanosis or edema, Kaur in place with urine Neuro: nonfocal, patient AA&O x 4, speech intact, no facial droop, moving all extremities on command with equal strength 5/5 Results & Data Results & Data Vital Signs (Past 12 Hours) Vital Signs Temp Pulse Pulse Resp BP BP BP 06/11/25 21:00 66 16 113/53 L 06/11/25 20:27 64 16 120/55 L 06/11/25 19:48 72 06/11/25 19:27 36.5 C 69 19 112/46 L 06/11/25 18:09 71 15 06/11/25 18:03 68 20 06/11/25 18:00 112/53 L 06/11/25 18:00 112/53 L 06/11/25 18:00 06/11/25 17:35 62 15 110/46 L 99/58 L 06/11/25 17:20 66 17 96/44 L 99/58 L 06/11/25 17:10 72 16 102/49 L 108/42 L 06/11/25 17:00 36.3 C L 65 17 102/48 L 110/53 L 06/11/25 16:50 66 12 110/51 L 116/78 06/11/25 16:40 67 24 104/50 L 111/58 L 06/11/25 16:30 67 17 95/45 L 110/54 L 06/11/25 16:20 36 C L 71 22 98/43 L Pulse Ox O2 Del Method O2 Flow Rate 06/11/25 21:00 100 Nasal Cannula 2 06/11/25 20:27 100 Nasal Cannula 2 06/11/25 19:48 06/11/25 19:27 98 Nasal Cannula 2 06/11/25 18:09 100 06/11/25 18:03 97 06/11/25 18:00 06/11/25 18:00 06/11/25 18:00 Nasal Cannula 2 06/11/25 17:35 100 Nasal Cannula 2 06/11/25 17:20 95 Nasal Cannula 2 06/11/25 17:10 100 Oxymask 4 06/11/25 17:00 100 Oxymask 4 06/11/25 16:50 100 Oxymask 4 06/11/25 16:40 100 Oxymask 6 06/11/25 16:30 100 Oxymask 8 06/11/25 16:20 98 Oxymask 8 Laboratory Results Laboratory Results WBC 12.54 K/ul (4.8-10.8) H 06/11/25 16:40 RBC 2.34 M/uL (4.20-5.40) L 06/11/25 16:40 Hgb 7.9 g/dl (12.0-16.0) L 06/11/25 18:35 Hct 25.0 % (37.0-47.0) L 06/11/25 18:35 MCV 96.2 fL (80.0-100.0) 06/11/25 16:40 MCH 31.6 pg (25.0-34.0) 06/11/25 16:40 MCHC 32.9 g/dL (32.0-36.0) 06/11/25 16:40 RDW Std Deviation 47.1 fL (36.4-46.3) H 06/11/25 16:40 RDW Coeff of Ivonne 13.3 % (11.5-14.5) 06/11/25 16:40 Plt Count 158 K/uL (130-400) 06/11/25 16:40 MPV 10.4 fL (9.4-12.4) 06/11/25 16:40 Activ Coag Time Kaolin 187 SECONDS (94-140) H 06/11/25 12:31 Sodium 140 mmol/L (136-145) 06/11/25 18:36 Potassium 4.0 mmol/L (3.5-5.1) 06/11/25 18:36 Chloride 109 mmol/L (98-107) H 06/11/25 18:36 Carbon Dioxide 21 mmol/L (21-32) 06/11/25 18:36 Anion Gap 10 (3-11) 06/11/25 18:36 BUN 10 mg/dl (6-23) 06/11/25 18:36 Creatinine 0.59 mg/dl (0.6-1.2) L 06/11/25 18:36 Est Cr Clr Drug Dosing 83.3 ml/min 06/11/25 18:36 eGFR 95.70 06/11/25 18:36 BUN/Creatinine Ratio 16.9 (10-20) 06/11/25 18:36 Glucose 194 mg/dl (70-99(Fasting)) H 06/11/25 18:36 POC Glucose 133 mg/dl (70-99) H 06/11/25 22:23 Calcium 7.7 mg/dl (8.6-10.3) L 06/11/25 18:36 Total Bilirubin 1.0 mg/dl (0.2-1.0) 06/11/25 18:36 AST 248 U/L (13-39) H 06/11/25 18:36 ALT 189 U/L (7-52) H 06/11/25 18:36 Alkaline Phosphatase 54 U/L (34-104) 06/11/25 18:36 Total Protein 5.3 gm/dl (6.0-8.3) L 06/11/25 18:36 Albumin 3.4 gm/dl (3.4-5.0) 06/11/25 18:36 Globulin 1.9 gm/dl (2.5-4.0) L 06/11/25 18:36 Albumin/Globulin Ratio 1.8 (0.9-2) 06/11/25 18:36 Nasal Screen MRSA (PCR) Negative (Negative) 06/11/25 18:00 Blood Type A Positive 06/11/25 06:02 Antibody Screen NEGATIVE 06/11/25 06:02 Crossmatch See Detail 06/11/25 06:02 Impressions Lumbar Spine X-Ray 06/11/25 07:30 FL lumbar spine 2-3V CLINICAL HISTORY: L3-L4 LAMI L4-S1 ANTEIROR INTERBODY L4-S1 POSTERIOR FUSION COMPARISON STUDY: None FLUOROSCOPY TIME: 15 seconds FLUOROSCOPY IMAGES: 1 EXPOSURE DOSE: 6 mGy FINDINGS: Fluoroscopy was provided for lumbar surgery. IMPRESSION: Intraoperative fluoroscopy. ACT 112: Negative or not required by law. Electronically signed by: Deep Rodríguez M.D. 06/11/2025 3:52 PM Chest X-Ray 06/11/25 18:08 EXAM: XR chest 1V portable CLINICAL HISTORY: f/u. TECHNIQUE: An X-ray image of the chest is obtained in AP projection. COMPARISON: 01/20/2025 FINDINGS: Pulmonary Parenchyma: No evidence of consolidation, collapse, or focal opacities. No pulmonary nodules are identified. No evidence of pleural effusion or pleural thickening. Heart and Mediastinum: Mild cardiomegaly and bilateral hilar vascular prominence appears stable. Bony Thorax: Bony thorax appears intact without fractures or deformities. Soft Tissues: Soft tissues overlying the chest wall are unremarkable. Pacemaker device is seen in situ and another line projecting over the right heart. (clinical correlation advised) IMPRESSION: 1. No acute cardiopulmonary abnormalities are identified. 2. Stability on comparison. Electronically signed by Ross Penaloza 06-11-2025 7:53 PM PG Care Time/CCT Total # of Minutes Spent Total Time Spent with Patient: Total time spent is greater than 50% in coordination of care (as documented) at patient's floor/unit and/or counseling patient: Coding Level of Care Code 07789 IN/OBS CONSULT LVL 3,45M Diagnoses Acute blood loss anemia D62 Transaminitis R74.01 Chronic GERD K21.9 Essential hypertension I10
[2025-06-12 00:41] LABS: Hematocrit (blood only) 21.2 % (37.0-47.0); Hemoglobin 6.9 g/dl (12.0-16.0); Mean Corpuscular Hemoglobin 30.7 pg (25.0-34.0); Mean Corpuscular Volume 94.2 fL (80.0-100.0); Platelet Count 143 K/uL (130-400); RDW Standard Deviation 46.5 fL (36.4-46.3); Red Blood Count 2.25 M/uL (4.20-5.40); White Blood Count 10.81 K/ul (4.8-10.8)
[2025-06-12] MEDS ORDERED: SODIUM CHLORIDE 0.9% 100 ML IV PRN ×2 (00:42→01:16)
--- NOTE | 2025-06-12 00:49 | Operative Report ---
[facility] Post Operative Report Pre & Post Diagnosis Operation Date: 06/14/25 07:00 <No data on this case meets the specified criteria> Pre op diagnosis: 1.Lumbar stenosis with claudication 2. lumbar radiculopathy 3. lumbar spondylolisthesis Post op diagnosis: 1. Lumbar stenosis with claudication 2. Lumbar radiculopathy 3. Lumbar spondylolisthesis 4. Inadvertent ligation of hypogastric artery I identified the patient and participated in the time-out.: Yes Procedure Operation Date: 06/14/25 07:00 <No data on this case meets the specified criteria> 1. Anterior approach (retroperitoneal) for access to L4/5 L5/S1. 2. Director Of Real Estate Surgeon for L4/L5 anterior lumbar discectomy and fusion ( Dr. Aviles) 3. Director Of Real Estate surgeon for L4/L5 interbody spacer placement with arthrodesis ( Dr. Aviles) 4. Director Of Real Estate surgeon for L4/5 anterior anterior instrumentation ( Dr. Aviles) 5. Director Of Real Estate surgeon for Left Iliac-Iliac bypass graft ( Dr. Abdi) Surgeon Surgeon Will Hogan DO Director Of Real Estate Zeke LACEY Estimated Blood Loss 1,000 Findings Consistent with Post-Op Diagnosis Specimens none Anesthesia Type General Complications none inadvertant ligation of hypogastric artery Disposition Disposition: Surgical ICU Description of Procedure After informed consent was obtained the patient was taken to the operating room and placed in supine position. After successful intubation a Kaur catheter was placed sterilely. The abdomen was then sterilely prepped and draped in usual fashion. I began by using fluoroscopy to heather at the L4/5 and L5/S1 disc spaces anteriorly on the abdomen. I then made left paramedian vertical incision from just above the umbilicus to part way down to the pubic symphysis. This was carried down through the soft tissue using cautery. Just lateral to the midline the anterior fascia was opened to both poles using cautery. I created flaps in both directions and then gently teased the rectus muscle using manual dissection from medial to lateral. Staying below the arcuate ligament I was able to continue to manually use gentle dissection to come around posteriorly until I was able to palpate the psoas muscle. I was also able to palpate iliac vessels as well as the lumbosacral disk spaces. We placed a self-retaining retractor to assist throughout the case. Relatively early in the case it became apparent that there was a fair amount of inflammation in the retroperitoneum in general. It was difficult peeling the peritoneum superiorly and medially as it had stuck to other structures in the retroperitoneum. The vascular anatomy was also relatively aberrant with what would cuff turner machine operator to be a proximal bifurcation of the great vessels. I had difficulty what should have been the bifurcation at the L5/S1 interspace. I therefore moved up to the L4/L5 interspace and again tried to gently tease what I thought was the inferior vena cava medially. I was able to ligate and divide what I thought was an iliolumbar vessel using 3-0 silk ties and a large Hemoclip tongue lining stitcher. The posterior wall of the vein was stuck to the disc space. At this point I did not feel comfortable proceeding. We called in Dr. Abdi one of our vascular surgeons to evaluate the situation. He scrubbed into the case. Please see his dictation. I did assist him with all aspects of his procedure. Essentially we extended the incision both superiorly and posteriorly. We ligated several other iliolumbar vessels and then very tediously rolled the vein medially to expose the L4-L5 disc space. There was some concern intraoperatively with the patient's right foot being colder than the left foot. As he examined our ligation he was concerned that one of the vessels I ligated was potentially the etiology. We therefore performed an iliac-ilac bypass graft with PTFE. Again please see his dictation for the details. Following this we did perform an angiogram which seemed to reveal that we had revascularized the left hypogastric vessel. There was good blood flow to both great vessels on the angiogram. Once this was completed Dr. Aviles performed an anterior lumbar interbody fusion at the L4/L5 disc base. Please see his dictation regarding the spine discectomy fusion and instrumentation. I did assist him with all aspects of his part of the procedure as well as protected the great vessels during. Once this portion was completed we thoroughly irrigated the retroperitoneal space. As we slowly relieved the self-retaining retractors we evaluated for bleeding of which there was none. A final irrigation was performed and the anterior fascia was closed using 0 looped PDS in running fashion. I started at both poles and secured the fascia together at the midpoint. Soft tissue was irrigated and closed using 3-0 Vicryl deep layers and 3-0 Monocryl in running fashion for skin. Benzoin Steri-Strips gauze and tape were used as a dressing. Patient was awakened extubated and transferred to the intensive care unit in guarded condition. I attest to the content of the Intraoperative Record and any orders documented therein. Any exceptions are noted below.
--- NOTE | 2025-06-12 04:49 | Surgery Progress Note ---
Date of Service June 12, 2025 Assessment & Plan (1) Lumbar spondylosis: Plan: Patient is status post lumbar spine surgery (exposure provided by general surgery); patient also underwent left iliac to iliac artery bypass on 06/11/2025 (postop day #1) Patient currently n.p.o. and will continue this until she has return of bowel function Continue IV fluids while patient is n.p.o. Continue analgesics as needed Continue antiemetics if needed Continue vascular checks to lower extremities (as noted patient has bounding palpable pulses in the lower extremities bilaterally) Check a.m. labs when available Mobilize as directed by the Ortho/spine service Patient noted to have febrile episode last night. Will monitor for the present time but if this persists we will consider pursuing etiology of fever such as urinalysis or chest x-ray As above. Doing surprisingly well all things considered. Pain is manageable. No pain when lying still. Hemoglobin up after 1 unit of packed red blood cells. No nausea or abdominal distention. Will advance her to clear liquids. Admission and Anticipated Discharge Date Admission Date: June 11, 2025 Subjective Patient is resting comfortably in bed. She denies any nausea or vomiting. She has not passed any flatus or had bowel movement since surgery. I discussed with the nurse attending to the patient the patient was noted to be anemic on labs and she is receiving a unit of packed red blood cells for this issue. Otherwise no issues are reported Physical Exam Gastrointestinal (Abdomen): Abdomen is soft with minimal distention. Patient has expected tenderness near surgical incision. Musculoskeletal: Patient has 2+ palpable pedal pulses bilaterally. Neurologic: Patient is able to move all 4 extremities without noted focal deficits Results & Data Vital Signs (Past 12 Hours) Vital Signs Temp Pulse Pulse Resp BP BP BP 06/12/25 03:57 38.1 C H 68 18 101/44 L 06/12/25 03:56 38.1 C H 68 18 101/44 L 06/12/25 03:25 37.5 C 72 14 96/38 L 06/12/25 02:25 37.3 C 71 20 103/48 L 06/12/25 02:25 37.3 C 71 20 103/48 L 06/12/25 01:55 68 12 100/35 L 06/12/25 01:40 37.1 C 68 12 106/36 L 06/12/25 01:24 37.1 C 69 15 114/50 L 06/12/25 01:00 75 14 114/50 L 06/12/25 00:00 64 13 104/39 L 06/11/25 23:03 64 06/11/25 23:00 63 13 101/49 L 06/11/25 22:00 64 14 106/44 L 06/11/25 21:00 66 16 113/53 L 06/11/25 20:27 64 16 120/55 L 06/11/25 19:48 72 06/11/25 19:27 36.5 C 69 19 112/46 L 06/11/25 18:09 71 15 06/11/25 18:03 68 20 06/11/25 18:00 112/53 L 06/11/25 18:00 112/53 L 06/11/25 18:00 06/11/25 17:35 62 15 110/46 L 99/58 L 06/11/25 17:20 66 17 96/44 L 99/58 L 06/11/25 17:10 72 16 102/49 L 108/42 L 06/11/25 17:00 36.3 C L 65 17 102/48 L 110/53 L 06/11/25 16:50 66 12 110/51 L 116/78 Pulse Ox O2 Del Method O2 Flow Rate 06/12/25 03:57 95 0 06/12/25 03:56 95 0 06/12/25 03:25 95 06/12/25 02:25 95 0 06/12/25 02:25 95 0 06/12/25 01:55 94 06/12/25 01:40 96 06/12/25 01:24 99 06/12/25 01:00 98 Room Air 06/12/25 00:00 96 Room Air 06/11/25 23:03 06/11/25 23:00 97 Room Air 06/11/25 22:00 97 Room Air 06/11/25 21:00 100 Nasal Cannula 2 06/11/25 20:27 100 Nasal Cannula 2 06/11/25 19:48 06/11/25 19:27 98 Nasal Cannula 2 06/11/25 18:09 100 06/11/25 18:03 97 06/11/25 18:00 06/11/25 18:00 06/11/25 18:00 Nasal Cannula 2 06/11/25 17:35 100 Nasal Cannula 2 06/11/25 17:20 95 Nasal Cannula 2 06/11/25 17:10 100 Oxymask 4 06/11/25 17:00 100 Oxymask 4 06/11/25 16:50 100 Oxymask 4 PG Care Time/CCT Total # of Minutes Spent Total Time Spent with Patient: Total time spent is greater than 50% in coordination of care (as documented) at patient's floor/unit and/or counseling patient: Coding Level of Care Code None Diagnoses Lumbar spondylosis M47.816
[2025-06-12 05:31] LABS: Hematocrit (blood only) 25.0 % (37.0-47.0); Hemoglobin 8.4 g/dl (12.0-16.0); Immature Granulocytes # (auto) 0.04 K/uL (0.01-0.20); Immature Granulocytes % (auto) 0.4 %; Mean Corpuscular Hemoglobin 30.7 pg (25.0-34.0); Mean Corpuscular Volume 91.2 fL (80.0-100.0); Platelet Count 146 K/uL (130-400); RDW Standard Deviation 49.6 fL (36.4-46.3); Red Blood Count 2.74 M/uL (4.20-5.40); White Blood Count 9.13 K/ul (4.8-10.8)
[2025-06-12 05:46] LABS: Alanine Aminotransferase 114.0 U/L (7-52); Alkaline Phosphatase 45.0 U/L (34-104); Anion Gap 6.0 (3-11); Bilirubin,Total 1.3 mg/dl (0.2-1.0); Blood Urea Nitrogen 10.0 mg/dl (6-23); Calcium 7.5 mg/dl (8.6-10.3); Carbon Dioxide 24.0 mmol/L (21-32); Chloride 107.0 mmol/L (98-107); Creatinine Clr Calc Pharmacy 91.0 ml/min; Glucose 115.0 mg/dl (70-99(Fasting)); Magnesium 1.6 mg/dl (1.7-2.4); Potassium 3.9 mmol/L (3.5-5.1); Sodium 137.0 mmol/L (136-145); Total Protein 4.8 gm/dl (6.0-8.3)
[2025-06-12] MEDS: POLYETHYLENE (MIRALAX) 17 GM PACK PO SCH (06:01)
[2025-06-12] MEDS: ICU ELECTROLYTE REPLACEMENT PROTOCOL SCH (06:31)
[2025-06-12] MEDS: MAGNESIUM SULFATE / D5W 1 GM/100 ML BAG IV SCH (06:33)
[2025-06-12] MEDS: POTASSIUM CHLORIDE CRTAB 20 MEQ TABCR PO SCH (06:33)
[2025-06-12] MEDS: LACTATED RINGER'S 1,000 ML IV SCH (07:54)
--- NOTE | 2025-06-12 08:03 | Critical Care Progress Note ---
Date of Service June 12, 2025 Assessment & Plan (1) Spondylolisthesis, lumbar region: (2) Acute blood loss anemia: (3) Essential hypertension: (4) Chronic venous insufficiency: (5) Arterial insufficiency: (6) Dyslipidemia: (7) Transaminitis: Plan Reason Critically Ill: 70-year-old female came to the hospital to have spine surgery done but she was found to have cold limb in the OR and ended up with left iliac iliac bypass. Sent to ICU for further care Past medical history: Peripheral vascular disease, hypertension, GERD Neuro - [facility]: Negative Cardiac - --Atherosclerosis of the right iliac artery Right cool limb during the OR on 06/11/2025 S/p iliac iliac bypass on 06/11/[address] Abdi -- History of hypertension On metoprolol, amlodipine at home Respiratory - -- No acute issues Titrate off oxygen Incentive spirometer will be beneficial GI - -- Transaminitis Could be from hypotension Continue to trend RENAL/LYTES - -- Monitor BUNs/creatinine Avoid nephrotoxic medication ENDO - -- ICU hypoglycemia protocol HEME - -- Acute blood loss anemia Likely postsurgical S/p 1 unit PRBC 06/12/2025 Try to keep hemoglobin greater than 7.5/8 ID - -- Tmax 38.3 overnight Likely postop Will order blood culture as well as UA If the UA is dirty then we will start treatment Chest x-ray 06/11/2025 does not show any signs of infection Musculoskeletal: - -- Lumbar stenosis with claudication S/p L4-L5 anterior lumbar discectomy and fusion, L4-L5 interbody spacer placement and allograft spinal fusion on 06/11/2025 --Prophylaxis VTE: None GI: None Lines: Left radial Diet: Cardiac Plan: In/out: +1.5 L, urine output 2465 Magnesium being replaced Given the patient spiked fever, will repeat blood culture as well as UA. If the UA is dirty then I will start antibiotics orders we will just continue to monitor as the fever could be postop. Has been off vasopressor since midnight. Repeat H&H at 10 if the H&H is stable then patient okay to be downgraded to medical floor Please note the above document was generated using voice recognition software. It may contain grammatical, syntax or spelling errors.Any formal questions or concerns about the content, text or information contained within the body of this dictation should be directly addressed to the provider for clarification. Admission and Anticipated Discharge Date Admission Date: June 11, 2025 Subjective Patient seen and examined at bedside. No acute distress, no dozing overnight Patient did spike fever 38.3 Tmax. Denied any abdominal pain She was saturating 95-96% on room air. No nausea or vomiting Denied any abdominal pain No shortness of breath was able to tolerate clear liquid diet. Review of Systems 2 Review of Systems: All systems reviewed & are unremarkable except as noted in Subjective Physical Exam 2 Physical Exam: Constitutional: No acute distress HEENT: EOMI, PERRLA Respiratory system: Good air entry bilaterally, no wheeze, no rhonchi, mild crackles bilateral lower lobe CVS: S1-S2 positive, no murmurs or gallops Abdomen: Soft, nontender, nondistended, decreased bowel sounds x4, midline dressing in place Extremities: Good pulses bilateral dorsalis pedis as well as radialis, no edema Neuro: Awake alert oriented x3 Psych: Normal mood and affect G/U: Positive Kaur Skin: no rashes, warm and dry Lymphatic: no cervical or axillary lymphadenopathy Results & Data Results & Data Vital Signs (Past 12 Hours) Vital Signs Temp Pulse Pulse Resp BP BP Pulse Ox 06/12/25 07:00 37.0 C 78 20 97 06/12/25 06:00 77 15 98/43 L 96 06/12/25 05:07 38.3 C H 06/12/25 05:00 75 20 115/45 L 92 06/12/25 03:57 38.1 C H 68 18 101/44 L 95 06/12/25 03:56 38.1 C H 68 18 101/44 L 95 06/12/25 03:25 37.5 C 72 14 96/38 L 95 06/12/25 02:25 37.3 C 71 20 103/48 L 95 06/12/25 02:25 37.3 C 71 20 103/48 L 95 06/12/25 01:55 68 12 100/35 L 94 06/12/25 01:40 37.1 C 68 12 106/36 L 96 06/12/25 01:24 37.1 C 69 15 114/50 L 99 06/12/25 01:00 75 14 114/50 L 98 06/12/25 00:00 64 13 104/39 L 96 06/11/25 23:03 64 06/11/25 23:00 63 13 101/49 L 97 06/11/25 22:00 64 14 106/44 L 97 06/11/25 21:00 66 16 113/53 L 100 06/11/25 20:27 64 16 120/55 L 100 O2 Del Method O2 Flow Rate 06/12/25 07:00 Room Air 06/12/25 06:00 Room Air 06/12/25 05:07 06/12/25 05:00 Room Air 06/12/25 03:57 0 06/12/25 03:56 0 06/12/25 03:25 06/12/25 02:25 0 06/12/25 02:25 0 06/12/25 01:55 06/12/25 01:40 06/12/25 01:24 06/12/25 01:00 Room Air 06/12/25 00:00 Room Air 06/11/25 23:03 06/11/25 23:00 Room Air 06/11/25 22:00 Room Air 06/11/25 21:00 Nasal Cannula 2 06/11/25 20:27 Nasal Cannula 2 Laboratory Results 06/12/25 05:01 06/12/25 05:01 Coding Level of Care Code 29100 SUB INP/OBS CARE /35MIN Diagnoses Spondylolisthesis, lumbar region M43.16 Acute blood loss anemia D62 Essential hypertension I10 Chronic venous insufficiency I87.2 Arterial insufficiency I77.1 Dyslipidemia E78.5 Transaminitis R74.01
--- NOTE | 2025-06-12 08:44 | Hospitalist Progress Note ---
Date of Service June 12, 2025 Assessment & Plan (1) Acute blood loss anemia: (2) Transaminitis: (3) Chronic GERD: (4) Essential hypertension: Plan 70yo female with history of HTN, HLP, GERD, PVD, Bradycardia bradycardia status post PPM, chronic venous insufficiency, hiatal hernia, bilateral carotid artery stenosis chronic back pain presenting for planned L4-L5 anterior lumbar interbody fusion. Patient found to have cool RLE in the OR and had an urgent iliac-iliac artery bypass by Dr. Abdi. Patient admitted to the MICU for continued care #Acute blood loss anemia - patient with EBL of 1L in the OR today. Hgb 10.2 --> 7.4 --> 7.9 with Hct 31 --> 22.5 --> 25. She is hemodynamically stable Status post PRBCs -Transfuse for Hgb <8 #Atherosclerosis of the right iliac artery with left lower extremity cold limb status post left iliac bypass 06/11 Neurovascular checks Follow further vascular surgery input #Spondylolithiasis/Lumbar stenosis with claudication status post L4-L5 anterior lumbar discectomy and fusion, L4-L5 interbody spacer placement and allograft spinal fusion on 06/11/2025 Follow-up further orthospine input Orthopedic procedure could not be completed due to loss of pulse requiring vascular intervention. Return to the OR on 06/14/25 For completion of lumbar surgery #Borderline hypotension IV fluids #Transaminitis Likely secondary to hypotension improving Avoid hepatotoxic meds Monitor #Hypomagnesemia/hypocalcemia Replete per protocol #Chronic GERD -Famotidine 20mg po q 12 hours PRN #Hypertension - Holding home Amlodipine and Metoprolol for now - Continue to monitor BP DVT prophylaxis per primary Full code Thank you for this consultation. Will continue to follow with you. Admission and Anticipated Discharge Date Admission Date: June 11, 2025 Subjective She seems to be doing well in good spirits. No leg pain and noted to have good pulses bilaterally in DP and PT. No fevers chills abdominal pain diarrhea symptoms cough chest pain shortness of breath or any other symptoms. Temps noted overnight. Repeat temp this morning normal. Chest x-ray Unrevealing. UA pending. Suspect this is postop Review of Systems Review of Systems: All systems reviewed & are unremarkable except as noted in Subjective Physical Exam Physical Exam: Constitutional: No acute distress HEENT: EOMI, PERRLA Respiratory system: Good air entry bilaterally, no wheeze, no rhonchi, no crackles CVS: S1-S2 positive, no murmurs or gallops Abdomen: Soft, nontender, nondistended, positive bowel sounds x4, midline dressing in place Extremities: Good pulses bilateral DP and PT, warm, no signs of malperfusion / cyanosis Neuro: Awake alert oriented x3 Psych: Normal mood and affect Skin: no rashes, warm and dry Lymphatic: no cervical or axillary lymphadenopathy Results & Data Results & Data Vital Signs (Past 12 Hours) Vital Signs Temp Pulse Pulse Resp BP BP Pulse Ox 06/12/25 07:00 37.0 C 78 20 97 06/12/25 06:00 77 15 98/43 L 96 06/12/25 05:07 38.3 C H 06/12/25 05:00 75 20 115/45 L 92 06/12/25 03:57 38.1 C H 68 18 101/44 L 95 06/12/25 03:56 38.1 C H 68 18 101/44 L 95 06/12/25 03:25 37.5 C 72 14 96/38 L 95 06/12/25 02:25 37.3 C 71 20 103/48 L 95 06/12/25 02:25 37.3 C 71 20 103/48 L 95 06/12/25 01:55 68 12 100/35 L 94 06/12/25 01:40 37.1 C 68 12 106/36 L 96 06/12/25 01:24 37.1 C 69 15 114/50 L 99 06/12/25 01:00 75 14 114/50 L 98 06/12/25 00:00 64 13 104/39 L 96 06/11/25 23:03 64 06/11/25 23:00 63 13 101/49 L 97 06/11/25 22:00 64 14 106/44 L 97 06/11/25 21:00 66 16 113/53 L 100 O2 Del Method O2 Flow Rate 06/12/25 07:00 Room Air 06/12/25 06:00 Room Air 06/12/25 05:07 06/12/25 05:00 Room Air 06/12/25 03:57 0 06/12/25 03:56 0 06/12/25 03:25 06/12/25 02:25 0 06/12/25 02:25 0 06/12/25 01:55 06/12/25 01:40 06/12/25 01:24 06/12/25 01:00 Room Air 06/12/25 00:00 Room Air 06/11/25 23:03 06/11/25 23:00 Room Air 06/11/25 22:00 Room Air 06/11/25 21:00 Nasal Cannula 2 PG Care Time/CCT Total # of Minutes Spent Total Time Spent with Patient: Total time spent is greater than 50% in coordination of care (as documented) at patient's floor/unit and/or counseling patient: Coding Level of Care Code 27317 SUB INP/OBS CARE 2/35MIN Diagnoses Acute blood loss anemia D62 Transaminitis R74.01 Chronic GERD K21.9 Essential hypertension I10
--- NOTE | 2025-06-12 09:09 | Orthopedic Progress Note ---
Date of Service June 12, 2025 Assessment & Plan (1) Acute blood loss anemia: (2) Lumbar spondylosis: (3) Spondylolisthesis, lumbar region: Plan Patient postop 1 status post anterior lumbar interbody fusion vascular bypass out of bed with assistance, may ambulate short distances with PT Diet per general surgery DVT prophylaxis Monitor CBC, transfuse as needed Will plan to return to the OR on Saturday for posterior instrumentation, I explained will see how she does over the weekend as far as the leg pain she was experiencing postoperatively. If they neurologic symptoms have resolved, we will likely consider posterior instrumentation without decompression, otherwise would plan for L4 laminectomy and L4-5 instrumented fusion Will need to be n.p.o. at midnight on Saturday evening, hold anticoagulation after Saturday morning dose Subjective Patient is status post anterior lumbar interbody fusion at L4-5, has some incisional pain as expected. No neurologic symptoms in the lower extremities however she has not been out of bed yet. Pain is fairly well-controlled, transfused 1 unit overnight with appropriate response. Overall she is doing quite well this morning, asking to get out of bed. Review of Systems All systems reviewed & are unremarkable except as noted in HPI & below. Physical Exam Abdominal dressing clean dry and intact Motor strength is 5/5 in bilateral hip flexors, quadriceps, tibialis anterior, extensor hallucis longus, and gastroc/soleus complex Sensation intact to light touch in the L2-S1 dermatomes bilaterally Results & Data Results & Data Laboratory Results . Diagnostic Findings . PG Care Time/CCT Total # of Minutes Spent Total Time Spent with Patient: Total time spent is greater than 50% in coordination of care (as documented) at patient's floor/unit and/or counseling patient: Coding Level of Care Code 44921 Post Operative Follow-Up Diagnoses Acute blood loss anemia D62 Lumbar spondylosis M47.816 Spondylolisthesis, lumbar region M43.16
[2025-06-12 09:34] LABS: Appearance Urine Clear (Clear); Bacteria Urine Automated None Seen (None Seen); Cast Urine Automated 0-2 /lpf (0-2); Epithelial Cell Urine Auto 0-2 /hpf (0-2); Glucose Urine UA Negative (Negative); RBC Urine Automated 0-2 /hpf (0-2); WBC Urine Automated 0-5 /hpf (0-5)
[2025-06-12 10:24] LABS: Hematocrit (blood only) 25.5 % (37.0-47.0); Hemoglobin 8.4 g/dl (12.0-16.0)
[2025-06-12] MEDS: FAMOTIDINE 20 MG TAB PO PRN (10:48)
--- NOTE | 2025-06-12 12:15 | Vascular Medicine ProgressNote ---
Date of Service June 12, 2025 Assessment & Plan (1) Lumbar spondylosis: Plan: No issues from my perspective s/p revascularization of left internal iliac artery. No anticoagulation needs or ambulation restrictions from my standpoint. Can followup as needed. No imaging required postoperatively from my perspective. Available as needed. Will sign off at this point. Management per primary services. Admission and Anticipated Discharge Date Admission Date: June 11, 2025 Subjective Quiet night. Comfortable. Hemodynamics acceptable. Physical Exam Physical Exam: Palpable dp pulses bilaterally. Results & Data Vital Signs (Past 12 Hours) Vital Signs Temp Pulse Pulse Resp BP BP Pulse Ox 06/12/25 10:43 37.7 C H 85 20 120/41 L 94 06/12/25 10:24 77 16 96 06/12/25 09:11 118/65 06/12/25 09:10 37.9 C H 06/12/25 09:09 80 21 95 06/12/25 08:15 71 21 94 06/12/25 08:00 06/12/25 08:00 06/12/25 08:00 68 06/12/25 07:01 108/48 L 06/12/25 07:00 84 22 95 06/12/25 07:00 37.0 C 78 20 97 06/12/25 06:00 77 15 98/43 L 96 06/12/25 05:07 38.3 C H 06/12/25 05:00 75 20 115/45 L 92 06/12/25 03:57 38.1 C H 68 18 101/44 L 95 06/12/25 03:56 38.1 C H 68 18 101/44 L 95 06/12/25 03:25 37.5 C 72 14 96/38 L 95 06/12/25 02:25 37.3 C 71 20 103/48 L 95 06/12/25 02:25 37.3 C 71 20 103/48 L 95 06/12/25 01:55 68 12 100/35 L 94 06/12/25 01:40 37.1 C 68 12 106/36 L 96 06/12/25 01:24 37.1 C 69 15 114/50 L 99 06/12/25 01:00 75 14 114/50 L 98 O2 Del Method O2 Flow Rate 06/12/25 10:43 Room Air 06/12/25 10:24 06/12/25 09:11 07/26/25 09:10 06/12/25 09:09 06/12/25 08:15 06/12/25 08:00 Room Air 06/12/25 08:00 Room Air 06/12/25 08:00 06/12/25 07:01 06/12/25 07:00 06/12/25 07:00 Room Air 06/12/25 06:00 Room Air 06/12/25 05:07 06/12/25 05:00 Room Air 06/12/25 03:57 0 06/12/25 03:56 0 06/12/25 03:25 06/12/25 02:25 0 06/12/25 02:25 0 06/12/25 01:55 06/12/25 01:40 06/12/25 01:24 06/12/25 01:00 Room Air PG Care Time/CCT Total # of Minutes Spent Total Time Spent with Patient: Total time spent is greater than 50% in coordination of care (as documented) at patient's floor/unit and/or counseling patient: Coding Level of Care Code 17029 Post Operative Follow-Up Diagnoses Lumbar spondylosis M47.816
[2025-06-12] MEDS ORDERED: ICU ELECTROLYTE REPLACEMENT PROTOCOL SCH (18:00)
[2025-06-12] MEDS: ONDANSETRON 4 MG OD TAB PO PRN (20:49)
[2025-06-13 06:56] LABS: Hematocrit (blood only) 24.0 % (37.0-47.0); Hemoglobin 7.8 g/dl (12.0-16.0); Mean Corpuscular Hemoglobin 30.1 pg (25.0-34.0); Mean Corpuscular Volume 92.7 fL (80.0-100.0); Platelet Count 131 K/uL (130-400); RDW Standard Deviation 52.0 fL (36.4-46.3); Red Blood Count 2.59 M/uL (4.20-5.40); White Blood Count 9.60 K/ul (4.8-10.8)
[2025-06-13 07:27] LABS: Anion Gap 3.0 (3-11); Blood Urea Nitrogen 6.0 mg/dl (6-23); Calcium 7.6 mg/dl (8.6-10.3); Carbon Dioxide 28.0 mmol/L (21-32); Chloride 108.0 mmol/L (98-107); Creatinine Clr Calc Pharmacy 154.5 ml/min; Glucose 108.0 mg/dl (70-99(Fasting)); Magnesium 2.2 mg/dl (1.7-2.4); Potassium 4.3 mmol/L (3.5-5.1); Sodium 139.0 mmol/L (136-145)
--- NOTE | 2025-06-13 08:29 | Surgery Progress Note ---
Date of Service June 13, 2025 Assessment & Plan (1) Lumbar spondylosis: Plan: Doing well from my standpoint. Stay on clears for today since she does have some mild nausea. For posterior instrumentation tomorrow. Will defer DVT prophylaxis to Dr. Aviles since she has a second procedure scheduled for tomorrow. Monitor temperature spikes. Most likely secondary to transfusion versus atelectasis. Admission and Anticipated Discharge Date Admission Date: June 11, 2025 Subjective Doing well. Sitting up into a chair. Denying any back pain currently. Physical Exam Physical Exam: Alert no acute distress Abdomen is soft with expected tenderness. Mild distention Results & Data Vital Signs (Past 12 Hours) Vital Signs Temp Pulse Pulse Pulse Resp BP Pulse Ox 06/13/25 07:36 38.6 C H 77 20 104/55 L 94 06/13/25 03:34 36.7 C 68 18 100/52 L 98 06/13/25 01:14 37.5 C 06/12/25 22:54 38.7 C H 79 18 103/50 L 92 06/12/25 21:46 84 06/12/25 20:44 130/66 O2 Del Method O2 Flow Rate 06/13/25 07:36 Room Air 06/13/25 03:34 Nasal Cannula 2 06/13/25 01:14 06/12/25 22:54 Room Air 06/12/25 21:46 06/12/25 20:44 PG Care Time/CCT Total # of Minutes Spent Total Time Spent with Patient: Total time spent is greater than 50% in coordination of care (as documented) at patient's floor/unit and/or counseling patient: Coding Level of Care Code 64637 Post Operative Follow-Up Diagnoses Lumbar spondylosis M47.816
[2025-06-13] MEDS ORDERED: VANCOMYCIN CONSULT ACTIVE PRN (09:20)
--- NOTE | 2025-06-13 10:23 | XRay Report ---
XR lumbar spine 2-3V CLINICAL HISTORY: s/p Anterior lumbar interbody fusion, upright COMPARISON STUDY: 09/04/2024 FINDINGS: Interval anterior plate screw fusion with interbody device at L4-5 shows no hardware compli cation. There is stable grade 1 anterolisthesis of L4 on 5. No fracture seen. Stable diffuse degenera tive changes. IMPRESSION: Unremarkable postoperative exam. ACT 112: Negative or not required by law. Electronically signed by: Deep Rodríguez M.D. 06/13/2025 10:22 AM
--- NOTE | 2025-06-13 11:08 | Hospitalist Progress Note ---
Date of Service June 13, 2025 Assessment & Plan (1) Acute blood loss anemia: (2) Transaminitis: (3) Chronic GERD: (4) Essential hypertension: Plan 70yo female with history of HTN, HLP, GERD, PVD, Bradycardia bradycardia status post PPM, chronic venous insufficiency, hiatal hernia, bilateral carotid artery stenosis chronic back pain presenting for planned L4-L5 anterior lumbar interbody fusion. Patient found to have cool RLE in the OR and had an urgent iliac-iliac artery bypass by Dr. Abdi. Patient admitted to the MICU for continued care #Acute blood loss anemia stable Status post PRBCs -Transfuse for Hgb <8 #left lower extremity cold limb status post left iliac bypass 06/11 history Atherosclerosis of the right iliac artery Neurovascular checks Vascular surgery signed off Recommended outpatient follow-up. Requested RN notify vascular surgery That right foot is noticeably cooler than left today #Spondylolithiasis/Lumbar stenosis with claudication status post L4-L5 anterior lumbar discectomy and fusion, L4-L5 interbody spacer placement and allograft spinal fusion on 06/11/2025 Follow-up further orthospine input Orthopedic procedure could not be completed due to loss of pulse requiring vascular intervention. Return to the OR on 06/14/25 For completion of lumbar surgery #Borderline hypotension IV fluids #Transaminitis Likely secondary to hypotension improving Avoid hepatotoxic meds Monitor #Hypomagnesemia/hypocalcemia Replete per protocol #Chronic GERD -Famotidine 20mg po q 12 hours PRN #Hypertension - Holding home Amlodipine and Metoprolol for now - Continue to monitor BP DVT prophylaxis per primary Full code Thank you for this consultation. Will continue to follow with you. Admission and Anticipated Discharge Date Admission Date: June 11, 2025 Subjective Doing well Overall. Intermittent nausea and some pain around incisional sites. Sitting up into a chair In good spirits denies any symptoms or complaints. No fevers chills chest pain shortness of breath cough abdominal pain diarrhea symptoms or any other symptoms. We discussed fevers may be postop inflammatory vs atelectasis. encouraged IS. RN notified me at time of this writing via secure chat that right foot is noticeably cooler than left foot today. I requested she let vascular surgery know right away Review of Systems Review of Systems: All systems reviewed & are unremarkable except as noted in HPI & below. Physical Exam Physical Exam: Constitutional: No acute distress HEENT: EOMI, PERRLA Respiratory system: Good air entry bilaterally, no wheeze, no rhonchi, no crackles CVS: S1-S2 positive, no murmurs or gallops Abdomen: Soft, Appropriate postop tenderness, nondistended, positive bowel sounds x4, midline dressing in place Extremities: Good pulses bilateral DP and PT, warm, no signs of malperfusion / cyanosis Neuro: Awake alert oriented x3 Psych: Normal mood and affect Skin: no rashes, warm and dry Lymphatic: no cervical or axillary lymphadenopathy Results & Data Results & Data Vital Signs (Past 12 Hours) Vital Signs Temp Pulse Pulse Pulse Resp BP Pulse Ox 06/13/25 09:36 37.2 C 06/13/25 08:00 06/13/25 08:00 75 06/13/25 07:36 38.6 C H 77 20 104/55 L 94 06/13/25 03:34 36.7 C 68 18 100/52 L 98 06/13/25 01:14 37.5 C O2 Del Method O2 Flow Rate 06/13/25 09:36 06/13/25 08:00 Room Air 06/13/25 08:00 06/13/25 07:36 Room Air 06/13/25 03:34 Nasal Cannula 2 06/13/25 01:14 Laboratory Results Abnormal Labs 06/11/25 06/11/25 06/11/25 06:02 12:31 13:15 WBC 12.35 H RBC 3.32 L Hgb 10.2 L Hct 31.0 L RDW Std Deviation RDW Coeff of Ivonne Neut # (Auto) Milam # (Auto) Activ Coag Time Kaolin 187 H Chloride Creatinine BUN/Creatinine Ratio Glucose POC Glucose Calcium Phosphorus Magnesium Total Bilirubin AST ALT Total Protein Albumin Globulin Albumin/Globulin Ratio Ur Leukocyte Esterase Crossmatch See Detail 06/11/25 06/11/25 06/11/25 16:40 18:35 18:36 WBC 12.54 H RBC 2.34 L Hgb 7.4 L 7.9 L Hct 22.5 L 25.0 L RDW Std Deviation 47.1 H RDW Coeff of Ivonne Neut # (Auto) Milam # (Auto) Activ Coag Time Kaolin Chloride 110 H 109 H Creatinine 0.50 L 0.59 L BUN/Creatinine Ratio 22.0 H Glucose 217 H 194 H POC Glucose Calcium 7.3 L 7.7 L Phosphorus Magnesium Total Bilirubin AST 263 H 248 H ALT 180 H 189 H Total Protein 4.7 L 5.3 L Albumin 3.3 L Globulin 1.4 L 1.9 L Albumin/Globulin Ratio 2.4 H Ur Leukocyte Esterase Crossmatch 06/11/25 06/12/25 06/12/25 22:23 00:15 05:01 WBC 10.81 H RBC 2.25 L 2.74 L Hgb 6.9 L* 8.4 L Hct 21.2 L 25.0 L RDW Std Deviation 46.5 H 49.6 H RDW Coeff of Ivonne 14.8 H Neut # (Auto) 6.79 H Milam # (Auto) 0.79 H Activ Coag Time Kaolin Chloride Creatinine 0.54 L BUN/Creatinine Ratio Glucose 115 H POC Glucose 133 H Calcium 7.5 L Phosphorus Magnesium 1.6 L Total Bilirubin 1.3 H AST 97 H ALT 114 H Total Protein 4.8 L Albumin 3.0 L Globulin Albumin/Globulin Ratio Ur Leukocyte Esterase Crossmatch 06/12/25 06/12/25 06/12/25 09:00 10:05 10:41 WBC RBC Hgb 8.4 L Hct 25.5 L RDW Std Deviation RDW Coeff of Ivonne Neut # (Auto) Milam # (Auto) Activ Coag Time Kaolin Chloride Creatinine BUN/Creatinine Ratio Glucose POC Glucose 142 H Calcium Phosphorus Magnesium Total Bilirubin AST ALT Total Protein Albumin Globulin Albumin/Globulin Ratio Ur Leukocyte Esterase Trace H Crossmatch 06/13/25 06:00 WBC RBC 2.59 L Hgb 7.8 L Hct 24.0 L RDW Std Deviation 52.0 H RDW Coeff of Ivonne 15.3 H Neut # (Auto) Milam # (Auto) Activ Coag Time Kaolin Chloride 108 H Creatinine 0.34 L BUN/Creatinine Ratio Glucose 108 H POC Glucose Calcium 7.6 L Phosphorus 2.0 L D Magnesium Total Bilirubin AST ALT Total Protein Albumin Globulin Albumin/Globulin Ratio Ur Leukocyte Esterase Crossmatch Diagnostic Findings Chest X-Ray 06/11/25 18:08 EXAM: XR chest 1V portable CLINICAL HISTORY: f/u. TECHNIQUE: An X-ray image of the chest is obtained in AP projection. COMPARISON: 01/20/2025 FINDINGS: Pulmonary Parenchyma: No evidence of consolidation, collapse, or focal opacities. No pulmonary nodules are identified. No evidence of pleural effusion or pleural thickening. Heart and Mediastinum: Mild cardiomegaly and bilateral hilar vascular prominence appears stable. Bony Thorax: Bony thorax appears intact without fractures or deformities. Soft Tissues: Soft tissues overlying the chest wall are unremarkable. Pacemaker device is seen in situ and another line projecting over the right heart. (clinical correlation advised) IMPRESSION: 1. No acute cardiopulmonary abnormalities are identified. 2. Stability on comparison. Electronically signed by Ross Penaloza 06-11-2025 7:53 PM Lumbar Spine X-Ray 06/13/25 09:23 XR lumbar spine 2-3V CLINICAL HISTORY: s/p Anterior lumbar interbody fusion, upright COMPARISON STUDY: 09/04/2024 FINDINGS: Interval anterior plate screw fusion with interbody device at L4-5 shows no hardware complication. There is stable grade 1 anterolisthesis of L4 on 5. No fracture seen. Stable diffuse degenerative changes. IMPRESSION: Unremarkable postoperative exam. ACT 112: Negative or not required by law. Electronically signed by: Deep Rodríguez M.D. 06/13/2025 10:22 AM PG Care Time/CCT Total # of Minutes Spent Total Time Spent with Patient: Total time spent is greater than 50% in coordination of care (as documented) at patient's floor/unit and/or counseling patient: Coding Level of Care Code 27202 SUB INP/OBS CARE 2/35MIN Diagnoses Acute blood loss anemia D62 Transaminitis R74.01 Chronic GERD K21.9 Essential hypertension I10
--- NOTE | 2025-06-13 12:24 | Orthopedic Progress Note ---
Date of Service June 13, 2025 Assessment & Plan (1) Spondylolisthesis, lumbar region: (2) Lumbar spinal stenosis: (3) Lumbar degenerative disc disease: (4) Lumbar radiculopathy: (5) S/P spinal surgery: Plan POD #2 status post anterior lumbar interbody fusion with left arterial PTFE bypass graft. She is making some gradual progression as expected. Patient notes no functional deficits with the minimal activity she has done. She continues to deny lower extremity pain or paresthesia other than the cold sensation to the right foot which seems to be her baseline for years now. She did have palpable dorsalis pedis pulse on the left today, but the posterior tibi al pulse was unable to be palpated. The right sided PT and DP pulses were unable to be palpated. However, Doppler ultrasound pulses were easily obtained bilaterally, with the left being 2+, and the right side being a bit more diminished at 1/2+. Plan: 1. Discontinue any Lovenox for planned surgery tomorrow, Saturday, 06/14 in AM. Plan remains for placement of posterior instrumentation, likely without decompression, and percutaneous approach only. However, L4 laminectomy and L4-5 instrumented fusion remains an option. 2. PT/OT as able. Continue out of bed with assistance and may ambulate short distances with PT if able. 3. Continue current pain regimen. 4. Will leave abdominal dressing intact. 5. Continue diet per general surgery; patient continues to report nausea, so she currently remains on clear liquid diet, but she will transition to n.p.o. at midnight for surgery tomorrow. 6. Will recheck H&H at 1600, with 2 units PRBCs ordered biodiesel division manager for the OR tomorrow. May consider transfusion prior to the OR pending hemoglobin result. Prefer hemoglobin greater than 9 for surgery tomorrow. Subjective Patient is POD#2 s/p anterior lumbar interbody fusion at L4-5 with placement of left arterial bypass PTFE graft. Still with some operative site pain as expected, but she has been trying to avoid coughing or any other movement that might increase her pain. She is denying any lower extremity pain or paresthesia at this time, however, she continues to note a cold sensation in the right foot. She does state that this sensation has been present for "years". The sensation diminishes or goes away when she puts a sock on. Review of Systems All systems reviewed & are unremarkable except as noted in HPI & below. Physical Exam Abdominal dressing clean dry and intact Motor strength 5/5 in bilateral hip flexors, quadriceps, hamstrings, tibialis anterior, extensor hallucis longus, and gastroc/soleus complex Sensation intact to light touch in the L2-S1 dermatomes bilaterally LLE pulses: PT absent, DP 2+ palpable; mild/moderate edema noted to left ankle and foot RLE pulses: PT absent, DP absent Doppler exam: LLEPT and DP pulses present, 2+ RLEPT and DP pulses present, 1+ Results & Data Results & Data Laboratory Results Laboratory Results - last 24 hr 06/11/25 06/13/25 06:02 06:00 WBC 9.60 RBC 2.59 L Hgb 7.8 L Hct 24.0 L MCV 92.7 MCH 30.1 MCHC 32.5 RDW Std Deviation 52.0 H RDW Coeff of Ivonne 15.3 H Plt Count 131 MPV 10.4 Sodium 139 Potassium 4.3 Chloride 108 H Carbon Dioxide 28 Anion Gap 3 BUN 6 Creatinine 0.34 L Est Cr Clr Drug Dosing 154.5 eGFR 109.29 BUN/Creatinine Ratio 17.6 Glucose 108 H Calcium 7.6 L Phosphorus 2.0 L D Magnesium 2.2 Crossmatch See Detail Diagnostic Findings Lumbar Spine X-Ray 06/13/25 09:23 XR lumbar spine 2-3V CLINICAL HISTORY: s/p Anterior lumbar interbody fusion, upright COMPARISON STUDY: 09/04/2024 FINDINGS: Interval anterior plate screw fusion with interbody device at L4-5 shows no hardware complication. There is stable grade 1 anterolisthesis of L4 on 5. No fracture seen. Stable diffuse degenerative changes. IMPRESSION: Unremarkable postoperative exam. ACT 112: Negative or not required by law. Electronically signed by: Deep Rodríguez M.D. 06/13/2025 10:22 AM PG Care Time/CCT Total # of Minutes Spent Total Time Spent with Patient: Total time spent is greater than 50% in coordination of care (as documented) at patient's floor/unit and/or counseling patient: C[place] [address] Post Operative Follow-Up Patient Type Established History Problem Focused Exam Problem Focused Medical Decision Making Moderate Complexity Diagnoses Spondylolisthesis, lumbar region M43.16 Spinal stenosis of lumbar region, unspecified whether neurogenic claudication present M48.061 Neurogenic claudication status: unspecified Degeneration of intervertebral disc of lumbar region with discogenic back pain and lower extremity pain M51.362 Disc-related pain type: discogenic back pain and lower extremity pain Lumbar radiculopathy M54.16 S/P spinal surgery Z98.890 (2) Lumbar spinal stenosis Neurogenic claudication status: unspecified Qualified Code(s): M48.061 - Spinal stenosis, lumbar region without neurogenic claudication (3) Lumbar degenerative disc disease Disc-related pain type: discogenic back pain and lower extremity pain Qualified Code(s): M51.362 - Other intervertebral disc degeneration, lumbar region with discogenic back pain and lower extremity pain
[2025-06-13] MEDS: METOCLOPRAMIDE HCL INJ 5 MG/ML 2 ML VIAL IV PRN (12:58)
[2025-06-13] MEDS ORDERED: SODIUM CHLORIDE 0.9% 100 ML IV PRN ×2 (14:18→21:21)
[2025-06-13 16:23] LABS: Hematocrit (blood only) 22.7 % (37.0-47.0); Hemoglobin 7.4 g/dl (12.0-16.0)
[2025-06-14 05:51] LABS: iSTAT Art Bld Gas Base Excess -6.0 meg/L (-9-1.8)
[2025-06-14 06:54] LABS: Anion Gap 3.0 (3-11); Blood Urea Nitrogen 5.0 mg/dl (6-23); Calcium 7.8 mg/dl (8.6-10.3); Carbon Dioxide 31.0 mmol/L (21-32); Chloride 105.0 mmol/L (98-107); Creatinine Clr Calc Pharmacy 157.2 ml/min; Glucose 107.0 mg/dl (70-99(Fasting)); Magnesium 2.0 mg/dl (1.7-2.4); Potassium 4.1 mmol/L (3.5-5.1); Sodium 139.0 mmol/L (136-145)
[2025-06-14 07:13] LABS: Hematocrit (blood only) 28.1 % (37.0-47.0); Hemoglobin 9.1 g/dl (12.0-16.0); Mean Corpuscular Hemoglobin 28.2 pg (25.0-34.0); Mean Corpuscular Volume 87.0 fL (80.0-100.0); Platelet Count 140 K/uL (130-400); RDW Standard Deviation 71.6 fL (36.4-46.3); Red Blood Count 3.23 M/uL (4.20-5.40); White Blood Count 8.29 K/ul (4.8-10.8)
[2025-06-14] MEDS ORDERED: PROPOFOL IV EMULSION 10 MG/ML 100 ML VIAL IV ONE (08:00)
[2025-06-14] MEDS ORDERED: DEXAMETHASONE SOD INJ 4 MG/ML VIAL ONE (08:00)
[2025-06-14] MEDS ORDERED: LIDOCAINE 2% 2 ML VIAL/AMP(20MG/ML) INFIL ONE (08:01)
[2025-06-14] MEDS ORDERED: ONDANSETRON INJ 2 MG/ML 2 ML VIAL ONE (08:01)
[2025-06-14] MEDS ORDERED: ROCURONIUM BROMIDE 10 MG/ML 5 ML VIAL IV ONE (08:01)
[2025-06-14] MEDS ORDERED: PROPOFOL IV EMULSION 10 MG/ML 20 ML VIAL IV ONE (08:01)
[2025-06-14] MEDS ORDERED: DexMEDEtomidine HCL IV 100 MCG/ML VIAL IV ONE ×2 (08:02→08:09)
[2025-06-14] MEDS ORDERED: REMIFENTANIL HCL 1 MG VIAL IV ONE ×2 (08:03→12:31)
[2025-06-14] MEDS ORDERED: SUCCINYLCHOLINE CHLORIDE 20 MG/ML 10 ML VIAL IV ONE (08:11)
--- NOTE | 2025-06-14 08:13 | Vascular Medicine ProgressNote ---
Date of Service June 14, 2025 Assessment & Plan (1) Lumbar spondylosis: Plan: no new issues from my standpoint. for further procedure(s) per Dr. Aviles. No contraindication from my standpoint. Can get standard DVT prophylaxis. Admission and Anticipated Discharge Date Admission Date: June 11, 2025 Subjective comfortable. Still with back pain. No neurologic complaints in lower extremities. Physical Exam Physical Exam: palpable dp pulses in both feet. Results & Data Vital Signs (Past 12 Hours) Vital Signs Temp Pulse Pulse Resp BP BP Pulse Ox 06/14/25 07:00 67 06/14/25 05:03 36.6 C 68 18 105/55 L 100 06/14/25 01:17 36.9 C 80 22 111/69 97 06/14/25 00:03 37.1 C 73 19 93/60 L 95 06/13/25 23:03 37.5 C 80 19 100/63 95 06/13/25 22:33 37.9 C H 80 20 110/66 95 06/13/25 22:18 38.0 C H 78 20 106/65 95 06/13/25 21:59 37.9 C H 85 20 111/50 L 95 O2 Del Method O2 Flow Rate 06/14/25 07:00 06/14/25 05:03 Nasal Cannula 2 06/14/25 01:17 1 06/14/25 00:03 06/13/25 23:03 06/13/25 22:33 06/13/25 22:18 06/13/25 21:59 PG Care Time/CCT Total # of Minutes Spent Total Time Spent with Patient: Total time spent is greater than 50% in coordination of care (as documented) at patient's floor/unit and/or counseling patient: Coding Level of Care Code 49811 Post Operative Follow-Up Diagnoses Lumbar spondylosis M47.816
--- NOTE | 2025-06-14 09:33 | Hospitalist Progress Note ---
Date of Service June 14, 2025 Assessment & Plan (1) Acute blood loss anemia: (2) Transaminitis: (3) Chronic GERD: (4) Essential hypertension: Plan 70yo female with history of HTN, HLP, GERD, PVD, Bradycardia bradycardia status post PPM, chronic venous insufficiency, hiatal hernia, bilateral carotid artery stenosis chronic back pain presenting for planned L4-L5 anterior lumbar interbody fusion. Patient found to have cool RLE in the OR and had an urgent iliac-iliac artery bypass by Dr. Abdi. Patient admitted to the MICU for continued care #Acute blood loss anemia stable Status post PRBCs -Transfuse for Hgb <8 #left lower extremity cold limb status post left iliac bypass 06/11 history Atherosclerosis of the right iliac artery Neurovascular checks Vascular surgery signed off Recommended outpatient follow-up. Requested RN notify vascular surgery That right foot is noticeably cooler than left today #Spondylolithiasis/Lumbar stenosis with claudication status post L4-L5 anterior lumbar discectomy and fusion, L4-L5 interbody spacer placement and allograft spinal fusion on 06/11/2025 Follow-up further orthospine input Orthopedic procedure could not be completed due to loss of pulse requiring vascular intervention. Return to the OR on 06/14/25 For completion of lumbar surgery #Borderline hypotension IV fluids #Transaminitis Likely secondary to hypotension improving Avoid hepatotoxic meds Monitor #Hypomagnesemia/hypocalcemia Replete per protocol #Chronic GERD -Famotidine 20mg po q 12 hours PRN #Hypertension - Holding home Amlodipine and Metoprolol for now - Continue to monitor BP DVT prophylaxis per primary Full code Thank you for this consultation. Will continue to follow with you. Admission and Anticipated Discharge Date Admission Date: June 11, 2025 Subjective Sitting up comfortably in bed. at bedside. No breakthrough back pain or other alarm symptoms. States her "cold right foot" is chronic and alleviated with "footies" Review of Systems Review of Systems: All systems reviewed & are unremarkable except as noted in HPI & below. Physical Exam Physical Exam: Constitutional: No acute distress HEENT: EOMI, PERRLA Respiratory system: Good air entry bilaterally, no wheeze, no rhonchi, no crackles CVS: S1-S2 positive, no murmurs or gallops Abdomen: Soft, Appropriate postop tenderness, nondistended, positive bowel sounds x4, midline dressing in place Extremities: Good pulses bilateral DP and PT, warm, no signs of malperfusion / cyanosis Neuro: Awake alert oriented x3 Psych: Normal mood and affect Skin: no rashes, warm and dry Lymphatic: no cervical or axillary lymphadenopathy Results & Data Results & Data Vital Signs (Past 12 Hours) Vital Signs Temp Pulse Pulse Resp BP BP Pulse Ox 06/14/25 09:15 37.2 C 72 14 123/69 95 06/14/25 07:00 67 06/14/25 05:03 36.6 C 68 18 105/55 L 100 06/14/25 01:17 36.9 C 80 22 111/69 97 06/14/25 00:03 37.1 C 73 19 93/60 L 95 06/13/25 23:03 37.5 C 80 19 100/63 95 06/13/25 22:33 37.9 C H 80 20 110/66 95 06/13/25 22:18 38.0 C H 78 20 106/65 95 06/13/25 21:59 37.9 C H 85 20 111/50 L 95 O2 Del Method O2 Flow Rate 06/14/25 09:15 Room Air 06/14/25 07:00 06/14/25 05:03 Nasal Cannula 2 06/14/25 01:17 1 06/14/25 00:03 06/13/25 23:03 06/13/25 22:33 06/13/25 22:18 06/13/25 21:59 PG Care Time/CCT Total # of Minutes Spent Total Time Spent with Patient: Total time spent is greater than 50% in coordination of care (as documented) at patient's floor/unit and/or counseling patient: Coding Level of Care Code 61578 SUB INP/OBS CARE 2/35MIN Diagnoses Acute blood loss anemia D62 Transaminitis R74.01 Chronic GERD K21.9 Essential hypertension I10
[2025-06-14] MEDS: VANCOMYCIN HCL 1,250 MG in SODIUM CHLORIDE 0.9% 250 ML IV SCH (09:34)
[2025-06-14] MEDS ORDERED: MIDAZOLAM HCL 1 MG/ML 2ML VIAL ONE (09:48)
--- NOTE | 2025-06-14 10:00 | History & Physical Bridge Note ---
Date of Service June 14, 2025 History & Physical Bridge Note I have examined the patient, reviewed the History & Physical and in the interval since the performance of the History & Physical I have noted the following changes of clinical significance: no changes noted, s/p anterior fusion and vascular repair, neuro intact. Will plan for posterior fusion and decompression L4-5 today.
[2025-06-14] MEDS ORDERED: PHENYLEPHRINE 100MCG/ML 5ML SYR ONE ×2 (10:24→12:44)
[2025-06-14] MEDS ORDERED: PROMETHAZINE HCL 6.25 MG in SODIUM CHLORIDE 0.9% 50 ML IV PRN (10:52)
[2025-06-14] MEDS ORDERED: ONDANSETRON INJ 2 MG/ML 2 ML VIAL IV PRN (10:52)
[2025-06-14] MEDS ORDERED: HYDROmorphone INJ 2 MG/ML SYR/VIAL IV PRN (10:52)
[2025-06-14] MEDS ORDERED: ATROPINE SULFATE 0.1 MG/ML 10ML SYR IV PRN (10:52)
--- NOTE | 2025-06-14 10:52 | Anesthesiology Consultation ---
Date of Service June 14, 2025 Assessment & Plan Chart Review Chart Review: Acceptable Risk for Surgery and Patient NOT seen in Pre Admission Testing Consults Requested none ASA ASA4 Proposed Anesthesia Anesthesia Type: General Anesthesia Line Insertion: Arterial line Risk / Benefits Reviewed With: PT / POA / Parent / Guardian, Accepts Plan and Informed Consent Obtained History Surgery Operation Date: 06/11/25 07:30 Proposed Procedures p L4-L5, L5-S1 Anterior Lumbar Interbody Fusion, Posterior L4-S1 Fusion, L3 and L4 Laminectomy, CT Navigation and Spinal Cord Monitoring - Fuad Aviles MD s L4-L5, L5-S1 Anterior Lumbar Interbody Discectomy with Fusion - Will Hogan, DO Operation Date: 06/14/25 07:00 Proposed Procedures p L4-L5 Posterior Fusion and Decompression with Spinal Cord Monitoring - uFad Aviles MD Height/Weight Height: 5 ft 3 in Weight: 87.8 kg Allergies Allergy/AdvReac Type Severity Reaction Status Date / Time codeine Allergy Unknown Chest Pain Verified 06/11/25 06:03 Sulfa (Sulfonamide Allergy Unknown Unknown Verified 06/11/25 06:03 Antibiotics) Medications Home Medications Medication Instructions Recorded Confirmed Last Taken omega 1-uby-ewt-fish oil 60 mg-90 1 cap PO BID 09/02/23 06/11/25 05/28/25 07:12 mg-500 mg capsule valacyclovir 500 mg tablet 500 mg PO BID 09/02/23 06/11/25 06/11/25 04:00 loteprednol etabonate 0.5 % eye 1 drp OPR QAM 10/21/24 06/11/25 06/11/25 03:00 drops,suspension aspirin 81 mg tablet,delayed 81 mg PO QAM 01/20/25 06/11/25 05/28/25 07:12 release latanoprost 0.005 % eye drops 1 drp OPR HS 01/20/25 06/11/25 06/10/25 19:30 metoprolol tartrate 25 mg tablet 25 mg PO BID #180 tabs 01/28/25 06/11/25 06/11/25 04:00 amlodipine 5 mg tablet 5 mg PO QAM 05/11/25 06/11/25 06/11/25 04:00 calcium carbonate (Calcium 600) 1,200 mg PO DAILY 05/11/25 06/11/25 06/10/25 17:00 cranberry extract 200 mg capsule 200 mg PO BID 05/18/25 06/11/25 06/10/25 17:00 famotidine 20 mg tablet 20 mg PO DAILY PRN reflux 06/04/25 06/11/25 06/11/25 04:00 Active Medications Generic Name Dose Route Start Last Admin Trade Name Jarret PRN Reason Stop Dose Admin Acetaminophen 1,000 mg 06/11/25 17:59 06/13/25 22:31 Acetaminophen 500 Mg Tab PO 07/11/25 17:58 1,000 mg Q8H PRN Administration MILD Pain (1,2,3) & Pre PT Famotidine 20 mg 06/11/25 17:59 06/12/25 10:48 Famotidine 20 Mg Tab PO 07/11/25 17:58 20 mg Q12H PRN Administration Dyspepsia Gabapentin 300 mg 06/11/25 21:00 06/14/25 07:26 Gabapentin 300 Mg Cap PO 07/11/25 20:59 300 mg BID PAUL Administration Lactated Ringer's 1,000 mls @ 100 mls/hr 06/12/25 07:30 06/13/25 22:40 Lr IV 06/15/25 07:29 100 mls/hr .Q10H PAUL Administration Vancomycin HCl 1,250 mg/ 250 mls @ 200 mls/hr 06/14/25 06:00 06/14/25 09:34 Sodium Chloride IV 06/14/25 18:00 200 mls/hr PREOP PAUL Administration Latanoprost 1 drops 06/11/25 21:00 06/13/25 21:11 Latanoprost 0.005% Op Soln 2.5 Ml Btl OPR 07/11/25 20:59 1 drops HS PAUL Administration Metoclopramide HCl 10 mg 06/11/25 17:59 06/13/25 12:58 Metoclopramide Hcl Inj 5 Mg/Ml 2 Ml Vial IV 07/11/25 17:58 10 mg Q6H PRN Administration Nausea &/or Vomiting Miscellaneous 1 each 06/12/25 00:00 06/13/25 08:58 Order Awaiting Action N/A 07/12/25 00:00 Not Given QS PAUL Ondansetron HCl 4 mg 06/11/25 17:59 06/13/25 22:31 Ondansetron 4 Mg Od Tab PO 07/11/25 17:58 4 mg Q6H PRN Administration Nausea Oxycodone HCl 5 - 10 mg 06/11/25 17:59 06/13/25 22:31 Oxycodone Hcl Ir 5 Mg Tab (Immediate Release) PO 06/25/25 17:58 10 mg Q4H PRN Administration MOD/SEV Pain & Pre PT Polyethylene Glycol 17 gm 06/12/25 06:00 06/14/25 05:26 Polyethylene (Miralax) 17 Gm Pack PO 07/12/25 05:59 Not Given Q6 PAUL Senna/Docusate Sodium 2 tab 06/11/25 21:00 06/13/25 21:11 Docusate Sodium/Senna 50/8.6mg Tab PO 07/11/25 20:59 2 tab HS PAUL Administration NPO Date Last Intake of Fluids: 06/13/25 Time Last Intake of Fluids: 21:00 Date Last Intake of Solids: 06/10/25 Time Last Intake of Solids: 19:00 Past Medical History Medical History History of claustrophobia Pacemaker Follows with [facility] cardio Lumbar spinal stenosis Hx Lumbar degenerative disc disease Hx Hx of sinus bradycardia History of urinary incontinence Hx of psoriasis History of shingles ~2021 (forehead) Still takes medication and uses eye drops daily to problems from the remote hx shingles in her right eye/head History of hypertension Dyslipidemia Hx Chronic venous insufficiency Hx of gastroesophageal reflux (GERD) Hiatal hernia "Tiny" per patient Bilateral carotid artery stenosis Carotid duplex 09/16/24: NICHOLAS/LICA <50% stenosis Migraine Hx Exercise / Class Metabolic Activity II 4-5 Yardwork/Stairs/Walk up hill Past Family History Family History Mother Alzheimer disease 2014 Hypertension Stroke Sister Asthma Colonic polyp Diverticulitis Kidney stone Dyslipidemia Osteoporosis Father Diverticulitis Kidney stone Dementia Heart disease Aunt SIDS (sudden infant syndrome) Denies family history of Rheumatoid arthritis Sudden Ovarian cancer Prostate cancer Diabetes Deep vein thrombosis Coronary heart disease Cerebral aneurysm Bipolar disorder Clotting disorder Crohn's disease Depression Kidney disease Myocardial infarction Osteoarthritis Breast cancer Schizophrenia Congenital kidney disease Gestational diabetes Lung cancer COPD (chronic obstructive pulmonary disease) Colorectal cancer Pulmonary embolism Lung disease Cancer Ulcerative colitis Cystic kidney disease Past Surgical History Surgical History History of removal of cyst Left hand, first finger History of surgical removal of ganglion cyst Left wrist History of myelography 04/19/25 Hx of bilateral cataract extraction History of varicose vein procedure Status post placement of cardiac pacemaker 1990- initial placement ("misdiagnosed, didn't actually need the pacemaker at the time, reason it was never replaced before 2022") 10/2023- removal old generator, new dual chamber pacer placed, [facility] 01/2025- lead revision, [facility] History of suburethral sling procedure H/O eye surgery Laser eye surgery for retinal tears, left eye only removal scar tissue from both eyes History of dilation and curettage History of hysteroscopy Status post lateral meniscus repair Right knee Status post rotator cuff repair Left shoulder arthroscopy with RCR (04/04/2018): Grade 1 view, MAC#3, ETT 7.0 + regional at [facility] H/O thyroidectomy (2011) Left sided (R/t softball sized mass on left side) History of cholecystectomy History of carpal tunnel release Right History of tonsillectomy Past Anesthesia History No Hx of Anesthesia Complications and No Family Hx of Anesthesia Complications History of PONV No Hx of PONV and No Hx of Motion Sickness Social History Smoking Status: Never smoker Do You Dip or Chew Tobacco: No Hx Alcohol Use: No Hx Substance Use: No substance use type: does not use Physical Exam Vital Signs Last Vital Signs Temp 36.6 C 06/14/25 09:25 Pulse 76 06/14/25 09:25 Resp 20 06/14/25 09:25 BP 134/52 L 06/14/25 09:25 Pulse Ox 96 06/14/25 09:25 O2 Del Method Room Air 06/14/25 09:25 O2 Flow Rate 2 06/14/25 05:03 ENMT Mouth: no dentition abnormality Thyromental Distance: > or= 3.5 Finger Breadths Mallampati Class: II Neck normal visual inspection Respiratory normal respiratory effort Auscultation: lungs clear to auscultation bilaterally Cardiovascular Rate/Rhythm: regular rate and regular rhythm Chest (Breasts) Chest: + pacemaker Neurologic moves all extremities RLE non palpable DP pulse but able to doppler. Cool R foot to touch wrt L foot. Moderate weakness of dorsiflexion in R foot, moves ankle and all toes on R foot. Psychiatric Orientation: alert Testing Laboratory Results 06/14/25 06:11 06/14/25 06:11 Urine Color Yellow 06/12/25 09:00 Urine Appearance Clear (Clear) 06/12/25 09:00 Urine pH 6.0 (4.5-7.5) 06/12/25 09:00 Ur Specific [place] 1.014 (1.000-1.030) 06/12/25 09:00 Urine Protein Negative (Negative) 06/12/25 09:00 Urine Glucose (UA) Negative (Negative) 06/12/25 09:00 Urine Ketones Negative (Negative) 06/12/25 09:00 Urine Nitrite Negative (Negative) 06/12/25 09:00 Ur Leukocyte Esterase Trace (Negative) H 06/12/25 09:00 Urine WBC (Auto) 0-5 /hpf (0-5) 06/12/25 09:00 Urine RBC (Auto) 0-2 /hpf (0-2) 06/12/25 09:00 U Hyaline Cast (Auto) 0-2 /lpf (0-2) 06/12/25 09:00 U Epithel Cells (Auto) 0-2 /hpf (0-2) 06/12/25 09:00 Urine Bacteria (Auto) None Seen (None Seen) 06/12/25 09:00 Blood Type A Positive 06/14/25 06:11 Antibody Screen NEGATIVE 06/14/25 06:11 06/12/25 10:13 Aerobic Blood Culture - Preliminary Blood No growth in Aerobic bottle after 24 hours. Anaerobic Blood Culture - Preliminary No growth in Anaerobic bottle after 24 hours. 06/12/25 10:05 Aerobic Blood Culture - Preliminary Blood No growth in Aerobic bottle after 24 hours. Anaerobic Blood Culture - Preliminary No growth in Anaerobic bottle after 24 hours. Electrocardiogram Date: 01/20/25 Atrial-paced rhythm with prolonged AV conduction. 76bpm. NS TWA. Chest X-Ray Date: 01/20/25 FINDINGS: Stable pacemaker. Stable mild cardiomegaly without pulmonary vascular congestion. No effusion, consolidation, or pneumothorax. IMPRESSION: No acute findings. Echocardiogram Date: 01/21/25 LVEF 60-65%. LV wall motion is normal. Mild cLVH. RVSP 30-40mmhg. No significant valvular disease. "Mild" pulmonary HTN. Stress Test Date: 02/16/25 SUMMARY: 1. Lexiscan myocardial perfusion study negative for infarct or ischemia. 2. Normal left ventricular size and systolic function. Calculated ejection fraction 74%. No wall motion abnormalities. 3. No Lexiscan induced ECG changes. 4. No anginal symptoms. Other Testing Carotid duplex Date: 09/16/24 R/L ICA stenosis < 50%. B/L vertebral artery flow. Pacer check Date: 04/07/25 BiotroniVIOSO. AP 88%. 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 Pacing mode DDD-CLS. Battery/lead status: 80%. Normal parameters noted on battery and lead(s).
[2025-06-14] MEDS ORDERED: KETAMINE HCL 10MG/ML SYR ONE (11:42)
[2025-06-14] MEDS ORDERED: HYDROmorphone INJ 2 MG/ML SYR/VIAL ONE ×2 (11:58→12:29)
[2025-06-14] MEDS ORDERED: SUGAMMADEX SODIUM 200 MG/2 ML VIAL IV ONE (12:02)
[2025-06-14] MEDS: BUPIVACAINE 0.5 % 5 MG/1 ML MPF 30ML VIAL ONE (13:01)
[2025-06-14] MEDS: VANCOMYCIN HCL 1000MG/20ML VIAL ONE (13:01)
[2025-06-14] MEDS: FLOSEAL HEMOSTATIC MATRIX 10ML TOP ONE (13:04)
--- NOTE | 2025-06-14 13:38 | Operative Report ---
[facility] Post Operative Report Pre & Post Diagnosis Operation Date: 06/14/25 07:00 Pre-Op Diagnosis: (1) Spondylolisthesis, lumbar region: (2) Lumbar spinal stenosis: (3) Lumbar degenerative disc disease: (4) Lumbar radiculopathy: (5) S/P spinal surgery: Post-Op Diagnosis: (1) Spondylolisthesis, lumbar region: (2) Lumbar spinal stenosis: (3) Lumbar degenerative disc disease: (4) Lumbar radiculopathy: (5) S/P spinal surgery: I identified the patient and participated in the time-out.: Yes Procedure Operation Date: 06/14/25 07:00 1. L4-5 posterolateral fusion (78803). 2. L4 Laminectomy with Medial Facetectomy (95511) 3. L4, L5 posterior instrumentation ([id number]). 4. Stereotactic computer-assisted (navigational) procedure; spinal (62819). 5. Autograft for spine surgery, local Instrumentation: Medtronic Voyager percutaneous pedicle screws Surgeon Fuad Aviles MD [employer] Delivery Specialist Domingo Zhang PA-C Estimated Blood Loss 50 Findings Consistent with Post-Op Diagnosis Specimens None Drains Alvin Anesthesia Type General Complications none Disposition Disposition: Recovery Room Indications Patient 70-year-old female with lumbar spondylolisthesis who underwent anterior lumbar interbody fusion at L4-5 last week. Today's stage II of the procedure to provide posterior instrumented fusion and decompression at L4-5. Description of Procedure Informed consent was obtained. They were taken to the operating room and anesthesia was initiated. Neuromonitoring was utilized, including running electromyography and triggered electromyography. Antibiotics were administered. A timeout was performed. The patient was then placed prone on a Gerry table for the posterior procedure. Their back was prepped and draped in typical sterile fashion. A timeout was performed again. A stereotactic frame was attached to the patient. Intraoperative O-arm CT (computed tomography) images were obtained for stereotactic navigation and uploaded to the [employer] navigation unit for guidance. A #10 blade was used to incise the skin. Using navigation subperiosteal dissection was carried out down to the L4 lamina to expose both the lamina and L4-5 facet joints. Spinous process was removed with a Leksell rongeur, the lamina of L4 was thinned with a high-speed bur. The remaining lamina bone was then removed with a Kerrison punch to remove the lamina. Ligamentum flavum was identified and removed completely between the L4 and L5 levels. Eduard elevator was used to protect the dura. There was severe facet arthropathy at the L4-5 level contributing to the central canal and lateral recess stenosis. Medial facetectomy was then performed removing greater than 50% of the facet joint bilaterally. This leads to iatrogenic instability thus the reason for fusion at this level. The end of the decompression the central thecal sac as well as traversing nerve roots over the L4-5 disc space were well decompressed. The L4-5 facet joint capsules were stripped and the facet joints were decorticated. Allograft was packed posterolaterally to induce fusion. Under stereotactic assistance, pedicle screw tracts were created using an awl. Next, utilizing stereotactic assistance, screws of appropriate length were placed into the pedicles of L4, L5. Electromyography confirmed appropriate position. Rods were placed. Set screws were placed and final tightened. A second intraoperative CT scan was then obtained to verify appropriate position of the hardware. Images were personally reviewed on the in room viewed to verify good position of instrumentation. Subfascial drain was placed exiting out through the skin over the laminectomy site. The fascia, subcutaneous and cutaneous were closed in layers using suture. A sterile dressing was placed. At the end of case, all instrument and sponge counts were correct. The patient was awakened from anesthesia and taken to the PACU in stable condition. I attest to the content of the Intraoperative Record and any orders documented therein. Any exceptions are noted below.
[2025-06-14] MEDS ORDERED: FAMOTIDINE 20 MG TAB PO PRN (15:58)
--- NOTE | 2025-06-14 16:19 | Anesthesiology Progress Note ---
Date of Service June 14, 2025 Anesthesia Post Procedure Vital Signs Vital Signs: Temp Pulse Pulse Pulse Pulse Pulse Resp 06/14/25 16:00 36.6 C 67 20 06/14/25 15:25 62 12 06/14/25 15:15 63 12 06/14/25 15:05 36.1 C L 62 12 06/14/25 14:55 64 11 L 06/14/25 14:45 63 11 L 06/14/25 14:35 63 11 L 06/14/25 14:25 62 12 06/14/25 14:15 36 C L 61 10 L 06/14/25 14:05 61 11 L 06/14/25 13:55 61 11 L 06/14/25 13:45 61 11 L 06/14/25 13:37 36 C L 61 9 L 06/14/25 09:25 36.6 C 76 20 06/14/25 09:15 37.2 C 72 14 06/14/25 07:00 67 06/14/25 05:03 36.6 C 68 18 06/14/25 01:17 36.9 C 80 22 06/14/25 00:03 37.1 C 73 19 06/13/25 23:03 37.5 C 80 19 06/13/25 22:33 37.9 C H 80 20 06/13/25 22:18 38.0 C H 78 20 06/13/25 21:59 37.9 C H 85 20 06/13/25 19:45 06/13/25 19:30 37.3 C 88 18 06/13/25 19:18 79 BP BP BP BP Pulse Ox O2 Del Method O2 Flow Rate 06/14/25 16:00 112/67 Oxymask 3 06/14/25 15:25 103/50 L 93 Oxymask 3 06/14/25 15:15 101/52 L 99/56 L 93 Oxymask 3 06/14/25 15:05 101/54 L 107/49 L 94 Oxymask 6 06/14/25 14:55 96/50 L 97/47 L 94 Oxymask 6 06/14/25 14:45 98/50 L 100/47 L 96 Oxymask 8 06/14/25 14:35 96/50 L 98/47 L 96 Oxymask 8 06/14/25 14:25 93/50 L 92/45 L 96 Oxymask 8 06/14/25 14:15 91/51 L 89/46 L 96 Oxymask 8 06/14/25 14:05 86/43 L 89/47 L 96 Oxymask 8 06/14/25 13:55 87/48 L 87/42 L 96 Oxymask 8 06/14/25 13:45 85/44 L 86/43 L 96 Oxymask 8 06/14/25 13:37 139/70 97 Oxymask 8 06/14/25 09:25 134/52 L 96 Room Air 06/14/25 09:15 123/69 95 Room Air 06/14/25 07:00 06/14/25 05:03 105/55 L 100 Nasal Cannula 2 06/14/25 01:17 111/69 97 1 06/14/25 00:03 93/60 L 95 06/13/25 23:03 100/63 95 06/13/25 22:33 110/66 95 06/13/25 22:18 106/65 95 06/13/25 21:59 111/50 L 95 06/13/25 19:45 Room Air 06/13/25 19:30 127/67 93 Room Air 06/13/25 19:18 Pain Intensity Lower Back: Pain Intensity: 3 Abdomen: Pain Intensity: 7 Head: Pain Intensity: 1 Transfer of Care Handoff Completed per policy Notes Mental Status: alert / awake / arousable and participated in evaluation Patient Amnestic to Procedure: Yes Nausea / Vomiting: adequately controlled Pain: adequately controlled Airway Patency, RR, SpO2: stable & adequate BP & HR: stable & adequate Hydration State: stable & adequate Anesthetic Complications: no major complications apparent and Pt Satisfied with anesthetic care
[2025-06-15] MEDS: LORazepam 0.5 MG TAB PO PRN (00:13)
[2025-06-15 06:52] LABS: Hematocrit (blood only) 25.8 % (37.0-47.0); Hemoglobin 8.3 g/dl (12.0-16.0); Mean Corpuscular Hemoglobin 28.1 pg (25.0-34.0); Mean Corpuscular Volume 87.5 fL (80.0-100.0); Platelet Count 163 K/uL (130-400); RDW Standard Deviation 68.6 fL (36.4-46.3); Red Blood Count 2.95 M/uL (4.20-5.40); White Blood Count 8.03 K/ul (4.8-10.8)
[2025-06-15 07:10] LABS: Anion Gap 4.0 (3-11); Blood Urea Nitrogen 6.0 mg/dl (6-23); Calcium 7.7 mg/dl (8.6-10.3); Carbon Dioxide 31.0 mmol/L (21-32); Chloride 107.0 mmol/L (98-107); Creatinine Clr Calc Pharmacy 155.5 ml/min; Glucose 109.0 mg/dl (70-99(Fasting)); Magnesium 2.0 mg/dl (1.7-2.4); Potassium 4.3 mmol/L (3.5-5.1); Sodium 142.0 mmol/L (136-145)
--- NOTE | 2025-06-15 08:27 | Surgery Progress Note ---
Date of Service June 15, 2025 Assessment & Plan (1) S/P spinal surgery: Plan: from our standpoint patient may start full liquids incision looks good, may keep open to air with steris in place activity per spine will follow as above. doing well from my standpoint. will advance to full liquids. Admission and Anticipated Discharge Date Admission Date: June 11, 2025 Subjective patient feeling well. expected post op pain. looking forward to moving more today. tolerating clears no n/v. Physical Exam Physical Exam: awake/alert, no distress Gastrointestinal (Abdomen): midline incision c/d/i with steri strips, mild bruising inferiorly. expected ttp. abram drain with light bloody output Results & Data Vital Signs (Past 12 Hours) Vital Signs Temp Pulse Pulse Resp BP BP Pulse Ox 06/15/25 08:20 98.1 F 71 19 148/73 H 92 06/15/25 03:59 98.1 F 61 18 109/70 96 06/14/25 23:26 62 06/14/25 22:12 98.4 F 66 18 102/53 L O2 Del Method O2 Flow Rate 06/15/25 08:20 Room Air 06/15/25 03:59 Nasal Cannula 2 06/14/25 23:26 06/14/25 22:12 Nasal Cannula 2 PG Care Time/CCT Total # of Minutes Spent Total Time Spent with Patient: Total time spent is greater than 50% in coordination of care (as documented) at patient's floor/unit and/or counseling patient: Coding Level of Care Code 61214 Post Operative Follow-Up Diagnoses S/P spinal surgery Z98.890
--- NOTE | 2025-06-15 09:41 | Hospitalist Progress Note ---
Date of Service June 15, 2025 Assessment & Plan (1) Acute blood loss anemia: (2) Transaminitis: (3) Chronic GERD: (4) Essential hypertension: Plan 70yo female with history of HTN, HLP, GERD, PVD, Bradycardia bradycardia status post PPM, chronic venous insufficiency, hiatal hernia, bilateral carotid artery stenosis chronic back pain presenting for planned L4-L5 anterior lumbar interbody fusion. Patient found to have cool RLE in the OR and had an urgent iliac-iliac artery bypass by Dr. Abdi. Patient admitted to the MICU for continued care #Acute blood loss anemia stable Status post PRBCs -Transfuse for Hgb <8 #left lower extremity cold limb status post left iliac bypass 06/11 history Atherosclerosis of the right iliac artery Neurovascular checks Vascular surgery signed off Recommended outpatient follow-up #Spondylolithiasis/Lumbar stenosis with claudication status post L4-L5 anterior lumbar discectomy and fusion, L4-L5 interbody spacer placement and allograft spinal fusion on 06/11/2025 Follow-up further orthospine input Orthopedic procedure could not be completed due to loss of pulse requiring vascular intervention. Status post Return to the OR on 06/14/25 For completion of lumbar surgery Laminectomy and fusion posterior approach #Borderline hypotension IV fluids And encourage p.o. intake #Transaminitis Likely secondary to hypotension improving Avoid hepatotoxic meds Monitor #Hypomagnesemia/hypocalcemia Replete per protocol #Chronic GERD -Famotidine 20mg po q 12 hours PRN #Hypertension - Holding home Amlodipine and Metoprolol for now - Continue to monitor BP DVT prophylaxis per primary Full code Thank you for this consultation. Will continue to follow with you. Patient awaiting rehab bed. Admission and Anticipated Discharge Date Admission Date: June 11, 2025 Subjective Doing very well good spirits asymptomatic. Discussed with vascular surgeon at bedside Review of Systems Review of Systems: All systems reviewed & are unremarkable except as noted in HPI & below. Physical Exam Physical Exam: Constitutional: No acute distress HEENT: EOMI, PERRLA Respiratory system: Good air entry bilaterally, no wheeze, no rhonchi, no crackles CVS: S1-S2 positive, no murmurs or gallops Abdomen: Soft, Appropriate postop tenderness, nondistended, positive bowel sounds x4, midline dressing in place Extremities: Good pulses bilateral DP and PT, warm, no signs of malperfusion / cyanosis Neuro: Awake alert oriented x3 Psych: Normal mood and affect Skin: no rashes, warm and dry Lymphatic: no cervical or axillary lymphadenopathy Results & Data Results & Data Vital Signs (Past 12 Hours) Vital Signs Temp Pulse Pulse Resp BP BP Pulse Ox 06/15/25 08:20 36.7 C 71 19 148/73 H 92 06/15/25 03:59 36.7 C 61 18 109/70 96 06/14/25 23:26 62 06/14/25 22:12 36.9 C 66 18 102/53 L O2 Del Method O2 Flow Rate 06/15/25 08:20 Room Air 06/15/25 03:59 Nasal Cannula 2 06/14/25 23:26 06/14/25 22:12 Nasal Cannula 2 PG Care Time/CCT Total # of Minutes Spent Total Time Spent with Patient: Total time spent is greater than 50% in coordination of care (as documented) at patient's floor/unit and/or counseling patient: Coding Level of Care Code 82802 SUB INP/OBS CARE 2/35MIN Diagnoses Acute blood loss anemia D62 Transaminitis R74.01 Chronic GERD K21.9 Essential hypertension I10
--- NOTE | 2025-06-15 10:31 | Orthopedic Progress Note ---
<Statement entered by Fuad Aviles MD - 06/15/25 12:13> Agree with the history and physical as documented. Patient was examined personally this morning. Date of Service June 15, 2025 Assessment & Plan (1) Lumbar degenerative disc disease: * Continue Current Treatment * Now s/p planned lumbar spine procedure. Doing well from this, pain well- managed and has good function of bilateral lower extremities * Advance diet per general surgery team recommendations * ARAVIND drain with 140 cc output since surgery * Please continue to record drain output, possible removal tomorrow * Disposition: TBD * Daily treatment: Physical Therapy/ Occupational Therapy per protocol * Weight bearing status: WBAT, activity as tolerated * Continue to monitor for ABLA * Pain control * Hold DVT prophylaxis secondary to recent spine surgery * Office/hospital f/u 2 weeks for progress check and staple/suture removal Subjective .Active Problems: S/p 06/14 L4-5 laminectomy, posterolateral fusion, 06/11 anterior lumbar exposure by general surgery, iliac to iliac artery bypass, L4-5 anterior lumbar discectomy and fusion 70y/o female s/p above procedures. Doing well overall, pain managed and improved function. Denies fever/chills, chest pain/SOB, nausea/vomiting. Diet has been progressed to clear liquids. Otherwise no complaints. Review of Systems All systems reviewed & are unremarkable except as noted in HPI & below. Physical Exam .General: Alert and oriented, no acute distress * Constitutional: well-developed, well-nourished. * Respiratory: Normal respiratory effort, no distress * Gastrointestinal: Surgical dressing intact. No tenderness to palpation, no rigidity or guarding. * Skin: No rash or lesion. * Neurologic: Grossly normal * Musculoskeletal: Surgical dressing CDI. Lumbar spine region without obvious deformity or overlying skin changes. Minimal tenderness of surgical region, otherwise no tenderness b/l buttock or LE. Lumbar flexion/extension and rotation ROM with minimal pain. AROM b/l hip flexion, knee flexion/extension, ankle flexion/extension intact. Sensation intact plantar/dorsal foot. Brisk capillary refill. ARAVIND drain intact with scant bloody drainage. Results & Data Results & Data Laboratory Results . Diagnostic Findings . PG Care Time/CCT Total # of Minutes Spent Total Time Spent with Patient: Total time spent is greater than 50% in coordination of care (as documented) at patient's floor/unit and/or counseling patient: Coding Level of Care Code 44182 Post Operative Follow-Up Diagnoses Degeneration of intervertebral disc of lumbar region with discogenic back pain a nd lower extremity pain M51.362 Disc-related pain type: discogenic back pain and lower extremity pain (1) Lumbar degenerative disc disease Disc-related pain type: discogenic back pain and lower extremity pain Qualified Code(s): M51.362 - Other intervertebral disc degeneration, lumbar region with discogenic back pain and lower extremity pain
--- NOTE | 2025-06-15 10:49 | XRay Report ---
XR lumbar spine 2-3V CLINICAL HISTORY: post-op spine surgery COMPARISON STUDY: 06/13/2025 FINDINGS: Anterior and posterior metallic fusion at L4-5 shows no hardware complication. Postoperativ e drain is present. Skin abby are present posteriorly. There are stable degenerative changes. No f racture seen. Stable grade 1 anterolisthesis of L4 on 5. IMPRESSION: Unremarkable postoperative exam. ACT 112: Negative or not required by law. Electronically signed by: Deep Rodríguez M.D. 06/15/2025 10:48 AM
[2025-06-15 22:23] VITALS: O2SAT 92
[2025-06-16] MEDS: ALUMINUM/MAGNESIUM SUSP 30 ML UDC PO PRN (00:44)
[2025-06-16 07:03] LABS: Hematocrit (blood only) 25.3 % (37.0-47.0); Hemoglobin 8.2 g/dl (12.0-16.0); Mean Corpuscular Hemoglobin 28.4 pg (25.0-34.0); Mean Corpuscular Volume 87.5 fL (80.0-100.0); Platelet Count 185 K/uL (130-400); RDW Standard Deviation 67.0 fL (36.4-46.3); Red Blood Count 2.89 M/uL (4.20-5.40); White Blood Count 6.89 K/ul (4.8-10.8)
[2025-06-16 07:09] VITALS: BP 132/69; RESP 19; TEMP 98.1
--- NOTE | 2025-06-16 07:15 | Hospitalist Progress Note ---
Date of Service June 16, 2025 Assessment & Plan Admission and Anticipated Discharge Date Admission Date: June 11, 2025 Subjective Ms. Anne is a 70-year-old female whose active medical conditions include hypertension, hyperlipidemia, sick sinus syndrome status post pacemaker placement among other chronic medical conditions who was admitted by orthopedic surgery on 06/11 for a planned L4-L5 and L5-S1 discectomy and fusion; the patient's course was complicated by a left iliac artery insufficiency requiring intraoperative left iliac to iliac bypass with intraoperative consultation with vascular surgery. We have been consulted for medical management and the patient's postoperative course. No acute overnight events. Review of Systems Review of Systems: Constitutional: denies fevers, chills, malaise, fatigue Cardiovascular: denies angina, palpitations, syncope, peripheral edema, orthopnea, platypnea Pulmonary: denies cough, dyspnea on exertion, pleuritic chest pain Gastrointestinal: denies nausea, hematemesis, emesis, dysphagia, odynophagia, regurgitation, dyspepsia, abdominal distension, constipation, diarrhea, melanotic stool, hematochezia, jaundice Genitourinary: denies dysuria, hematuria, urinary incontinence Neurologic: denies focal weakness, paresthesias or numbness, vision changes or diplopia, ataxia Musculoskeletal: denies arthralgias, progressive weakness, recent falls Integumentary: denies new or developing rashes or lesions Results & Data Results & Data Vital Signs (Past 12 Hours) Vital Signs Temp Pulse Pulse Resp BP BP Pulse Ox 06/16/25 07:08 36.7 C 73 19 132/69 92 06/16/25 02:28 36.5 C 78 18 100/60 92 06/15/25 23:30 74 06/15/25 22:22 36.6 C 81 18 113/65 92 06/15/25 20:00 06/15/25 19:26 37 C 84 18 106/61 98 O2 Del Method 06/16/25 07:08 Room Air 06/16/25 02:28 Room Air 06/15/25 23:30 06/15/25 22:22 Room Air 06/15/25 20:00 Room Air 06/15/25 19:26 Room Air PG Care Time/CCT Total # of Minutes Spent Total Time Spent with Patient: Total time spent is greater than 50% in coordination of care (as documented) at patient's floor/unit and/or counseling patient: Coding
[2025-06-16 08:02] LABS: Anion Gap 3.0 (3-11); Blood Urea Nitrogen 11.0 mg/dl (6-23); Calcium 7.5 mg/dl (8.6-10.3); Carbon Dioxide 31.0 mmol/L (21-32); Chloride 105.0 mmol/L (98-107); Creatinine Clr Calc Pharmacy 131.9 ml/min; Glucose 109.0 mg/dl (70-99(Fasting)); Magnesium 1.8 mg/dl (1.7-2.4); Potassium 3.9 mmol/L (3.5-5.1); Sodium 139.0 mmol/L (136-145)
--- NOTE | 2025-06-16 08:15 | Surgery Progress Note ---
Date of Service June 16, 2025 Assessment & Plan (1) S/P spinal surgery: Plan: pt doing well with diet advancement, no n/v + bowel function planning [facility] worried about cost of MAG-AL medication sent to pharmacy, asked pt to reach out to team who prescribed it or community case manager to sort that out if its necessary or can be an OTC option f/u in the office with dr. iglesias as previously scheduled. steri strips in place on abdomen and can stay open to air As above. Doing well from my standpoint. Follow-up in 2 weeks Admission and Anticipated Discharge Date Admission Date: June 11, 2025 Subjective patient feeling well. tolerating diet. has been out of bed. + bowel function Physical Exam Physical Exam: awake/alert, no distress Gastrointestinal (Abdomen): abdominal incision w/ steri strips Results & Data Vital Signs (Past 12 Hours) Vital Signs Temp Pulse Pulse Resp BP BP Pulse Ox 06/16/25 07:08 98.1 F 73 19 132/69 92 06/16/25 02:28 97.7 F 78 18 100/60 92 06/15/25 23:30 74 06/15/25 22:22 97.9 F 81 18 113/65 92 O2 Del Method 06/16/25 07:08 Room Air 06/16/25 02:28 Room Air 06/15/25 23:30 06/15/25 22:22 Room Air PG Care Time/CCT Total # of Minutes Spent Total Time Spent with Patient: Total time spent is greater than 50% in coordination of care (as documented) at patient's floor/unit and/or counseling patient: Coding Level of Care Code 09183 Post Operative Follow-Up Diagnoses S/P spinal surgery Z98.890
--- NOTE | 2025-06-16 08:28 | Hospitalist Progress Note ---
Date of Service June 16, 2025 Assessment & Plan (1) Acute blood loss anemia: (2) Transaminitis: (3) Chronic GERD: (4) Essential hypertension: Plan 70yo female with history of HTN, HLP, GERD, PVD, Bradycardia bradycardia status post PPM, chronic venous insufficiency, hiatal hernia, bilateral carotid artery stenosis chronic back pain presenting for planned L4-L5 anterior lumbar interbody fusion. Patient found to have cool RLE in the OR and had an urgent iliac-iliac artery bypass by Dr. Abdi. Patient admitted to the MICU for continued care #Acute blood loss anemia stable Status post PRBCs -Transfuse for Hgb <8 #left lower extremity cold limb status post left iliac bypass 06/11 history Atherosclerosis of the right iliac artery Neurovascular checks Vascular surgery signed off Recommended outpatient follow-up #Spondylolithiasis/Lumbar stenosis with claudication status post L4-L5 anterior lumbar discectomy and fusion, L4-L5 interbody spacer placement and allograft spinal fusion on 06/11/2025 Follow-up further orthospine input Orthopedic procedure could not be completed due to loss of pulse requiring vascular intervention. Status post Return to the OR on 06/14/25 For completion of lumbar surgery Laminectomy and fusion posterior approach General surgery has been following as they assisted with the initial anterior approach Orthopedic procedure. Diet advanced to regular. Drains per surgery. #Soft BP improved IV fluids as needed. Encourage p.o. intake. #Transaminitis Likely secondary to hypotension improving Avoid hepatotoxic meds Monitor #Hypomagnesemia/hypocalcemia Replete per protocol #Chronic GERD -Famotidine 20mg po q 12 hours PRN #Hypertension - Holding home Amlodipine and Metoprolol for now - Continue to monitor BP DVT prophylaxis per primary Full code Thank you for this consultation. Will continue to follow with you. Patient awaiting rehab bed. Admission and Anticipated Discharge Date Admission Date: June 11, 2025 Subjective Doing very well sitting up eating breakfast. Has been advanced to a regular diet. Having bowel movements. No fevers chills abdominal pain nausea lightheadedness breakthrough back pain alarm symptoms or any other symptoms. Review of Systems Review of Systems: Constitutional: denies fevers, chills, malaise, fatigue Cardiovascular: denies angina, palpitations, syncope, peripheral edema, orthopnea, platypnea Pulmonary: denies cough, dyspnea on exertion, pleuritic chest pain Gastrointestinal: denies nausea, hematemesis, emesis, dysphagia, odynophagia, regurgitation, dyspepsia, abdominal distension, constipation, diarrhea, melanotic stool, hematochezia, jaundice Genitourinary: denies dysuria, hematuria, urinary incontinence Neurologic: denies focal weakness, paresthesias or numbness, vision changes or diplopia, ataxia Musculoskeletal: denies arthralgias, progressive weakness, recent falls Integumentary: denies new or developing rashes or lesions Physical Exam Physical Exam: Constitutional: No acute distress HEENT: EOMI, PERRLA Respiratory system: Good air entry bilaterally, no wheeze, no rhonchi, no crackles CVS: S1-S2 positive, no murmurs or gallops Abdomen: Soft, Appropriate postop tenderness, nondistended, positive bowel sounds x4, midline dressing in place Extremities: Good pulses bilateral DP and PT, warm, no signs of malperfusion / cyanosis Neuro: Awake alert oriented x3 Psych: Normal mood and affect Skin: no rashes, warm and dry Lymphatic: no cervical or axillary lymphadenopathy Results & Data Results & Data Vital Signs (Past 12 Hours) Vital Signs Temp Pulse Pulse Resp BP BP Pulse Ox 06/16/25 07:08 36.7 C 73 19 132/69 92 06/16/25 02:28 36.5 C 78 18 100/60 92 06/15/25 23:30 74 06/15/25 22:22 36.6 C 81 18 113/65 92 O2 Del Method 06/16/25 07:08 Room Air 06/16/25 02:28 Room Air 06/15/25 23:30 06/15/25 22:22 Room Air PG Care Time/CCT Total # of Minutes Spent Total Time Spent with Patient: Total time spent is greater than 50% in coordination of care (as documented) at patient's floor/unit and/or counseling patient: Coding Level of Care Code 77968 SUB INP/OBS CARE 2/35MIN Diagnoses Acute blood loss anemia D62 Transaminitis R74.01 Chronic GERD K21.9 Essential hypertension I10
--- NOTE | 2025-06-16 09:30 | Orthopedic Progress Note ---
Date of Service June 16, 2025 Assessment & Plan (1) Lumbar degenerative disc disease: * Continue Current Treatment * Now s/p planned lumbar spine procedure. Doing well from this, pain well- managed and has good function of bilateral lower extremities * Advance diet per general surgery team recommendations * ARAVIND drain with decreasing serosanguineous output, will remove today prior to discharge * Disposition: TBD * Daily treatment: Physical Therapy/ Occupational Therapy per protocol * Weight bearing status: WBAT, activity as tolerated * Continue to monitor for ABLA * Pain control * Hold DVT prophylaxis secondary to recent spine surgery * Office/hospital f/u 2 weeks for progress check and staple/suture removal Subjective . .Active Problems: S/p 06/14 L4-5 laminectomy, posterolateral fusion, 06/11 anterior lumbar exposure by general surgery, iliac to iliac artery bypass, L4-5 anterior lumbar discectomy and fusion 70y/o female s/p above procedures. Doing well overall, pain managed and improved function. Denies fever/chills, chest pain/SOB, nausea/vomiting. Diet has been progressed to solid food. Otherwise no complaints. Review of Systems All systems reviewed & are unremarkable except as noted in HPI & below. Physical Exam . General: Alert and oriented, no acute distress * Constitutional: well-developed, well-nourished. * Respiratory: Normal respiratory effort, no distress * Gastrointestinal: No tenderness to palpation, no rigidity or guarding. * Skin: No rash or lesion. * Neurologic: Grossly normal * Musculoskeletal: Surgical dressing CDI. Lumbar spine region without obvious deformity or overlying skin changes. Minimal tenderness of surgical region, otherwise no tenderness b/l buttock or LE. Lumbar flexion/extension and rotation ROM with minimal pain. AROM b/l hip flexion, knee flexion/extension, ankle flexion/extension intact. Sensation intact plantar/dorsal foot. Brisk capillary refill. Results & Data Results & Data Laboratory Results . Diagnostic Findings . PG Care Time/CCT Total # of Minutes Spent Total Time Spent with Patient: Total time spent is greater than 50% in coordination of care (as documented) at patient's floor/unit and/or counseling patient: Coding Level of Care Code 31481 Post Operative Follow-Up Diagnoses Degeneration of intervertebral disc of lumbar region with discogenic back pain and lower extremity pain M51.362 Disc-related pain type: discogenic back pain and lower extremity pain (1) Lumbar degenerative disc disease Disc-related pain type: discogenic back pain and lower extremity pain Qualified Code(s): M51.362 - Other intervertebral disc degeneration, lumbar region with discogenic back pain and lower extremity pain
[2025-06-16 12:13] VITALS: PULSE 79
--- NOTE | 2025-06-16 19:01 | Discharge Summary ---
Date of Service June 16, 2025 Admission HPI (Per Admitting) Prior to seeing me at her last visit she had already undergone considerable outpatient conservative management including activity modification, oral medications as well as pain management epidural injections. She has signs of significant neurogenic claudication in the bilateral lower extremities, severe axial back pain as well as symptoms consistent with an L5 radiculopathy. She has failed conservative management has had symptoms for greater than 1 year duration without relief. No changes in symptoms since office visit. Admission Exam (Per Admitting) Constitutional: Well developed, appears stated age Psych: patient is coherent and answers questions appropriately, normal affect Eye: Normal gaze, no redness to sclera, pupils round and equal Pulm: Normal respiratory effort, no wheezing Cardiovascular: no significant peripheral edema, palpable DP/PT pulses Skin shows no rashes, lesions No midline or paraspinal tenderness with palpation over the lumbar spine, no stepoffs Motor strength is 5/5 in bilateral hip flexors, quadriceps, tibialis anterior, extensor hallucis longus, and gastroc/soleus complex Sensation intact to light touch in the L2-S1 dermatomes bilaterally Diminished patellar reflexes Principal Diagnosis Same as "Discharge Diagnosis" noted below under Discharge Instructions. Discharge Exam . General: Alert and oriented, no acute distress * Constitutional: well-developed, well-nourished. * Respiratory: Normal respiratory effort, no distress * Gastrointestinal: No tenderness to palpation, no rigidity or guarding. * Skin: No rash or lesion. * Neurologic: Grossly normal * Musculoskeletal: Surgical dressing CDI. Lumbar spine region without obvious deformity or overlying skin changes. Minimal tenderness of surgical region, otherwise no tenderness b/l buttock or LE. Lumbar flexion/extension and rotation ROM with minimal pain. AROM b/l hip flexion, knee flexion/extension, ankle flexion/extension intact. Sensation intact plantar/dorsal foot. Brisk capillary refill. Discharge Data Consultations 06/11/25 17:59 Consult Hospitalist Routine Procedures Performed Operation Date: 06/14/25 07:00 Actual Procedures p L4-L5 Posterior Fusion and Decompression, CT Navigation and Instrumentation, with Spinal Cord Monitoring(Not Applicable) - Fuad Aviles MD Ordered Studies 06/11/25 07:30 FL lumbar spine 2-3V Routine 06/11/25 14:08 EV angio LE BI Routine 06/14/25 10:00 CT lumbar spine wo con Routine Hospital Course (1) S/P spinal surgery: (2) Acute blood loss anemia: (3) Lumbar spondylosis: (4) Spondylolisthesis, lumbar region: Plan Patient was admitted for anterior posterior lumbar surgery. During the anterior exposure, decision made to consult Dr. Abdi of vascular surgery, given cool right extremity in the OR. Iliac-iliac bypass was performed. Decision was made it was safe to proceed with L4-5 anterior interbody placement, however elected not to perform the L5-S1 level at site of bypass. Decision was made to stage the p osterior procedure given extended operative and anesthesia time. She was admitted to the ICU post op for monitoring, over the weekend she was transfused multiple units of pRBCs for acute blood loss anemia. She was allowed to ambulate over the weekend and reported no leg pain over the weekend following Anterior interbody spacer placement. On post op day 3 she was taken for posterior instrumented fusion at L4-5 and decompression. She participated in PT, pain was well controlled, post op labs remained stable and she had normal return of bowel/bladder function. She was discharged to inpatient rehab for further PT and strengthening. PG Care Time/CCT Total # of Minutes Spent Total Time Spent with Patient: Total time spent is greater than 50% in coordination of care (as documented) at patient's floor/unit and/or counseling patient: Discharge Plan Discharge Items Patient Disposition: Transfer Inpatient Rehab Fac Reason For Visit: Spondylolisthesis, Lumbar Region, [place] Disease Discharge Diagnosis: LUMBAR FUSION SURGERY Condition on Discharge: Good Activity: Per Instructions section Activity Comment: per orthopedics Lifting: None Non-emergency contact: Primary Care Provider and Surgeon Call non-emergency contact if: you have any medication questions and your sympto ms worsen Follow-up/Referrals: Fuad Reynolds MD [Primary Care Provider] - Will Hogan, [Surgeon] - (please call to schedule follow up in the office in 2 weeks ) Cornelius Abdi MD [Physician] - Fuad Aviles MD [Surgeon] - Diet: Low Fat and Low Sodium (2gm) Fluids: 1800ml (7 cups) Addtl Attending Provider Instructions: Instructions for FUSION Spine Surgery DO NOT TAKE ANY ANTI-INFLAMMATORY MEDICATIONS (MOTRIN, ALEVE, MOBIC, ETC.) IF YOU HAVE UNDERGONE A LUMBAR, THORACIC, OR CERVICAL FUSION DO NOT TAKE ANY HERBAL SUPPLEMENTS MEDICATIONS: You will be given prescriptions for the following: Oxycodone, Percocet or Hydrocodone - For breakthrough pain. Cyclobenzaprine (Flexeril), Valium (Diazepam), Tizanidine (Zanaflex), or Methocarbamol (Robaxin) For muscle spasms and back pain. Take these medications as needed. They will help the most during your recovery time. Senna-s and Miralax Senna-S twice daily, 17g packet of Miralax with water once daily while taking narcotics. These medications prevent constipation caused by the pain medications. Ondansetron (Zofran) For nausea. Cephalexin (Keflex) or Sulfamethoxazole/trimethoprim (Bactrim). Antibiotic. You are given IV antibiotics while in the hospital; you may or may not be given a prescription for home; this will be decided after surgery. Your pre-surgery prescription medications With the exception of anti- inflammatory medications, blood thinners (Coumadin, Plavix, Eliquis, Pradaxa, etc.), or narcotic pain medications, you may resume your home medications. For the above medications, you will be given specific instructions; you may resume blood thinners 3-4 days after surgery. ACTIVITIES: Walking Walking is mandatory. You need to walk at least once every hour while awake. Walking will help prevent blood clots in your legs and help prevent spasms in your back. Bending/twisting Limit bending at the waist, limit twisting and turning. You will be taught to "log roll" to get out of bed. Avoid athletic activities until further notice. Lifting Do NOT lift more than 5 lbs until further notice. Driving You may drive when you are no longer taking narcotic pain medications, can safely operate the brake/gas/clutch pedals, and can move your head/neck for visibility. Tobacco All tobacco products are strictly prohibited after surgery. Any use will dramatically increase your risk of complications. This includes vapor cigarettes, marijuana, nicotine patches and gums. Bracing/Cervical Collar There is no brace required for thoracic or lumbar surgery. If you have had a single level cervical fusion, you will be given a soft collar for comfort. Multiple level cervical fusions will receive a hard col lar to be worn at all times, except for showering and hygiene, until follow up in clinic. Surgical Dressing Initial operative dressing is to stay on for 2 days; you may change it if it becomes saturated. From then on, change the dressing daily with dry gauze and paper tape. Continue to change dressing until there is no discharge. Once there is no discharge on the dressing, you may leave the incision open to air but make sure to keep it out of the sun. For supplies, stop by any local pharmacy. Any type of gauze dressing is acceptable. Do not put any ointments on the wound. You may shower 48 hours after your surgery. Cover the incision with Saran Wrap and tape the edges to prevent water from contacting the incision. If water contacts the incision, pat dry. No baths or submerging the incision until seen in the clinic at follow up appointment. Next Appointment: If you do not already have one made, you will need to schedule an appointment to see Dr. Aviles about 2 weeks after surgery. To schedule, please call [phone]. QUESTIONS Please contact the office with questions or concerns: [phone] If outside normal business hours, you will be connected with the on-call physici an. Follow-up with primary care doctor, orthopedic surgeon and vascular surgeon within 1 week You have small white bandages on underneath that are over your abdominal incisions called steri strips. You may shower with these on. They will tend to fall off on their own within 7-10 days. Pending Studies at Discharge: No Stand-Alone Forms: [facility] Skilled Items Patient informed of condition?: Yes DNR: No Discharge Level of Care: Acute rehab Communicable Disease: No Discharge Prognosis: Stable Lines: None Urinary Catheter: No Medications and DC Order Prescriptions: New sennosides-docusate sodium [Senokot-S] 8.6-50 mg Tablet 2 tab PO HS Qty: 60 0RF acetaminophen [Tylenol Extra Strength] 500 mg Tablet 1,000 mg PO Q8H PRN (Reason: pain) Qty: 30 0RF bisacodyl 10 mg Suppository 10 mg NM DAILY PRN (Reason: constipation) Qty: 30 0RF gabapentin 300 mg Capsule 300 mg PO BID Qty: 30 0RF oxycodone 5 mg Tablet 5 - 10 mg PO Q4H PRN (Reason: pain) Qty: 14 0RF MAG-AL 200-200 mg/5 mL Suspension 30 ml PO Q6H PRN (Reason: dyspepsia) Qty: 3000 0RF Continued loteprednol etabonate 0.5 % drops,suspension 1 drp OPR QAM famotidine 20 mg tablet 20 mg PO DAILY PRN (Reason: reflux) Patient Comments: Pt takes for heartburn as needed--OTC omega 5-ocx-lon-fish oil 60-90-500 mg capsule 1 cap PO BID valacyclovir 500 mg tablet 500 mg PO BID metoprolol tartrate 25 mg tablet 25 mg PO BID Qty: 180 3RF cranberry extract 200 mg capsule 200 mg PO BID Rx Instructions: administer with a meal amlodipine 5 mg tablet 5 mg PO QAM calcium carbonate [Calcium 600] 600 mg calcium (1,500 mg) Tablet 1,200 mg PO DAILY latanoprost 0.005 % drops 1 drp OPR HS aspirin 81 mg Tablet,Delayed Release (Dr/Ec) 81 mg PO QAM Discharge Orders: Discharge Order (Routine); Ordered 06/16/25 Ordered By: Julián Dean Admission Data Admit Date/Time: 06/11/25 07:23 Attending Provider: Fuad Aviles Admit Provider: Fuad Aviles Primary Care Provider: Fuad Reynolds Other Providers: [facility]; Govind Dong; Esperanza Cardoso; Luis Delarosa; Andrew Gagnon; John Amaya; Zeke Ball; Sandy Isaac; Olga Schumacher; Albina Dennison; Alyson Gaona; Foreign Oropeza; Tavia Mills; Payam Burnett; Get Ko; Luis Espinoza; Artemio Posada; Carlos Buenrostro; Rossy Johnston; Aide Hobbs; Arlene Krause; Xi Austin; Grazyna Acosta; Enio Ruiz; Que Ernandez; Santi Hemphlil; Weston Hodges; Janice Patel; Abhijit Chacon; Charles Thorne; John Tran; Caprice Hoyos; iGanna Mcdonough; Yue Harry; Alfonso Mathews; Amor Rg; Janki Aguila; Jamarcus Torres; [place]; Regis Reeder; Jasmine Nicole; Tyrone Marley; Mariluz Garcia; Herb Allison; Josiah Marley; Julián Dean
== END 2025-06-16 14:09 | DRG 402 ==
LOC: ASU 05:45 → 1E 07:23 → 2S 06-12 13:56